=== PATIENT | female | born 1960 | race Caucasian/White ===

== ENCOUNTER 2016-05-17 19:27 | Emergency (ER) | payer BC ==
[2016-05-17] MEDS ORDERED: ONDANSETRON 4 MG/2 ML VIAL IVP STA (20:27)
[2016-05-17] MEDS ORDERED: MECLIZINE 12.5 MG TAB PO STA (20:27)
[2016-05-17] MEDS ORDERED: SODIUM CHLORIDE 0.9% 1,000 ML IV ONE (20:27)
--- NOTE | 2016-05-17 20:30 | ED ---
General Adult HPI - General Chief complaint: Shortness of Breath Stated complaint: SJ Time Seen by Provider: 05/17/16 19:46 Source: patient Mode of arrival: wheelchair Limitations: no limitations - History of Present Illness Initial comments: 56-year-old female presenting for evaluation of a hot sensation/flash to her face and dizziness that occurred at about 6:00 today and has intermittently been present. She states that when this occurs she feels like she could pass out and her vision becomes whitened fuzzy. There are no alleviating factors but she states that they do seem to present more when she is moving her head or sitting up fast. She's had similar symptoms to this in the past, back in January and February during which she was initially discharged as vertigo and the second time was admitted to rule out any cardiac etiology. During her stay she was cleared by neurology and cardiology without any significant abnormalities, ruling out ACS and PE. Today she denies any chest pain or shortness of breath but states that she does have significant anxiety when her symptoms, which caused her to breathe a little faster in the moment. There is no fevers, chills, nausea, vomiting, dysuria, abdominal pain, back pain. - Related Data Home Medications Medication Instructions Recorded Confirmed Celecoxib 200 mg PO DAILY 02/19/16 02/19/16 Esomeprazole Magnesium 40 mg PO DAILY 02/19/16 02/19/16 Levothyroxine Sodium 175 mcg PO DAILY 02/19/16 02/19/16 Telmisartan/Hydrochlorothiazid 1 tab PO DAILY 02/19/16 02/19/16 [Micardis Hct 80-12.5 mg Tablet] Venlafaxine HCl [Effexor XR] 150 mg PO DAILY 02/19/16 02/19/16 Venlafaxine HCl [Venlafaxine HCl 150 mg PO DAILY 02/19/16 02/19/16 ER] metFORMIN HCL [Metformin HCl ER] 500 mg PO DAILY 02/19/16 02/19/16 Previous Rx's Medication Instructions Recorded Albuterol Inhaler [Ventolin Hfa 1 - 2 puff INHALATION Q6HR PRN #1 02/20/16 Inhaler] inhaler Meclizine [Antivert] 25 mg PO DAILY #30 tab 05/17/16 Allergies Allergy/AdvReac Type Severity Reaction Status Date / Time codeine Allergy Unknown Verified 05/17/16 19:42 Review of Systems ROS Statement: Those systems with pertinent positive or pertinent negative responses have been documented in the HPI. General: Patient denies fever, chills, or vomiting but admits to nausea HEENT: No visual changes. No eye pain. No nasal symptoms. No dysphagia.No odynophagia. No ENT pain. Cardiac: No chest pain. No palpitations. Pulmonary; No dyspnea. Denies cough. GI: No abdominal pain. No diarrhea. No constipation. No bowel habit changes. No melena. No hematochezia. : No dysuria.No hematuria. No hesitancy. No urgency. No renal lithiasis history. Musculoskeletal: No musculoskeletal pain. No myalgias. Orthopedic: Denies fracture history. No arthralgias. Integumentary: Denies rash. Denies pruritis. Neurologic: Dizziness, hot flashes. Denies any lateralizing weakness. Denies numbness. Denies tingling. No seizure activity. Heme/Onc: Denies anemia. Denies cancer. Denies adenopathy. ROS Other: All systems not noted in ROS Statement are negative. Past Medical History Past Medical History: Diabetes Mellitus, GERD/Reflux, Hypertension, Osteoarthritis (OA), Thyroid Disorder Additional Past Medical History / Comment(s): Cervical pain, NIDDM type II, hypothyroid, R heel spur, recent UTI with completed a course of Bactrim, recent vertigo, obesity History of Any Multi-Drug Resistant Organisms: None Reported Past Surgical History: Section Additional Past Surgical History / Comment(s): lymph node removal -benign from R side base of neck, x4. Past Anesthesia/Blood Transfusion Reactions: No Reported Reaction Additional Past Anesthesia/Blood Transfusion Reaction / Comment(s): Pt received blood in past without reaction. Past Psychological History: Anxiety Additional Psychological History / Comment(s): Pt resides with her spouse. [facility] is independent. Smoking Status: Former smoker Past Alcohol Use History: None Reported Additional Past Alcohol Use History / Comment(s): Pt states she smoked from 1974 -1998. Past Drug Use History: None Reported - Past Family History Father Family Medical History: Myocardial Infarction ([place]) Additional Family Medical History / Comment(s): Father at the age of 36 yrs from a [place]. Pt believes the [place] was related to his illness with yellow jaundice. Mother Family Medical History: Hypertension Additional Family Medical History / Comment(s): Mother is 83 yrs old. General Exam - General Exam Comments Initial Comments: General: The patient is awake and alert, in no distress, and does not appear acutely ill. Eye: Pupils are equal, round and reactive to light, extra-ocular movements are intact; there is normal conjunctiva bilaterally. No signs of icterus. Ears, nose, mouth and throat: There are moist mucous membranes and no oral lesions. Neck: The neck is supple, there is no tenderness or JVD. Cardiovascular: There is a regular rate and rhythm. No murmur, rub or gallop is appreciated. Respiratory: Lungs are clear to auscultation, respirations are non-labored, breath sounds are equal. No wheezes, stridor, rales, or rhonchi. Gastrointestinal: Soft, non-distended, non-tender abdomen without masses or organomegaly noted. There is no rebound or guarding present. No CVA tenderness. Bowel sounds are unremarkable. Back: There is no tenderness to palpation in the midline. There is no obvious deformity. No rashes noted. Musculoskeletal: Normal ROM, no tenderness, There is no pedal edema. There is no calf tenderness or swelling. Sensation intact. Pulses equal bilaterally 2+. Neurological: CN II-XII intact, There are no obvious motor or sensory deficits. Coordination appears grossly intact. Speech is normal. Skin: Skin is warm and dry and no rashes or lesions are noted. Psychiatric: Cooperative, appropriate mood & affect, normal judgment. Limitations: no limitations Course Vital Signs 05/17/16 05/17/16 19:37 21:36 Temperature 97.5 F L Pulse Rate 71 67 Respiratory 20 18 Rate Blood Pressure 170/89 147/85 O2 Sat by Pulse 97 99 Oximetry EKG Findings - EKG Comments: EKG Findings:: EKG shows normal sinus rhythm with right bundle branch block and left anterior fascicular block, ventricular rate 63, LIAM 136, QRS 152, QT/QTC 450/460. This EKG is unchanged from previous. Medical Decision Making - Medical Decision Making 56-year-old female with past medical history of vertigo presented for evaluation of dizziness and hot flashes starting at about 6:00 this evening. She states he's ever similar to previous episodes she had back in January and February during which time she was diagnosed with vertigo and then admitted on the second presentation but workup was negative from the neural and cardiac consults, ruling out stroke, [place], PE. Physical examination revealed a normal neurologic exam, cranial nerves II through XII intact, and no focal neurologic deficits. Lungs clear to auscultation bilaterally without cardiac murmur. Wells for PE is 0 and she denies any chest pain or shortness of breath. We'll provide patient with IV fluid, Antivert, Zofran, and obtain EKG. Reviewing the patient's history she had an echo back in February which revealed no acute abnormalities. CT head showed no acute process. Discussing these results with the patient she stated she had a stress test a few weeks ago in her occupational hygienist's office which also showed no significant abnormalities. Labs revealed no significant abnormalities. The patient was informed of these results and reevaluated. She had resolution of her symptoms for the last hour and was feeling back at baseline. She was informed she would be discharged with a prescription for Antivert and instructions to follow-up with her primary care physician. She was further advised to return to this facility if her symptoms should worsen or persist. She acknowledged an understanding of this information and agreed with this plan of care. - Lab Data Result diagrams: 05/17/16 20:50 05/17/16 20:50 Lab Results 05/17/16 05/17/16 05/17/16 Range/Units 20:50 20:50 20:50 WBC 7.8 (3.8-10.6) k/uL RBC 4.75 (3.80-5.40) m/uL Hgb 13.9 (11.4-16.0) gm/dL Hct 42.8 (34.0-46.0) % MCV 90.2 (80.0-100.0) fL MCH 29.3 (25.0-35.0) pg MCHC 32.5 (31.0-37.0) g/dL RDW 13.7 (11.5-15.5) % Plt Count 293 (150-450) k/uL Neutrophils % 70 % Lymphocytes % 21 % Monocytes % 5 % Eosinophils % 1 % Basophils % 1 % Neutrophils # 5.4 (1.3-7.7) k/uL Lymphocytes # 1.6 (1.0-4.8) k/uL Monocytes # 0.4 (0-1.0) k/uL Eosinophils # 0.1 (0-0.7) k/uL Basophils # 0.1 (0-0.2) k/uL Sodium 144 (137-145) mmol/L Potassium 4.6 (3.5-5.1) mmol/L Chloride 103 (98-107) mmol/L Carbon Dioxide 28 (22-30) mmol/L Anion Gap 13 mmol/L BUN 10 (7-17) mg/dL Creatinine 0.60 (0.52-1.04) mg/dL Est GFR (MDRD) Af Amer >60 (>60 ml/min/1.73 sqM) Est GFR (MDRD) Non-Af >60 (>60 ml/min/1.73 sqM) Glucose 92 (74-99) mg/dL Calcium 9.8 (8.4-10.2) mg/dL Total Bilirubin 0.4 (0.2-1.3) mg/dL AST 25 (14-36) U/L ALT 48 (9-52) U/L Alkaline Phosphatase 68 (38-126) U/L Troponin I <0.012 (0.000-0.034) ng/mL Total Protein 7.0 (6.3-8.2) g/dL Albumin 4.5 (3.5-5.0) g/dL Lipase 70 (23-300) U/L Disposition Clinical Impression: Vertigo, Nausea Disposition: HOME SELF-CARE Condition: Stable Instructions: Benign Paroxysmal Positional Vertigo (ED), Vertigo (ED) Prescriptions: Meclizine [Antivert] 25 mg PO DAILY #30 tab Time of Disposition: 22:37
[2016-05-17 21:37] VITALS: RESP 18
[2016-05-17 21:47] LABS: Basophils # (A) 0.1 k/uL (0-0.2); Basophils % (A) 1 %; CH 29.8; CHCM 33.2; Eosinophils # (A) 0.1 k/uL (0-0.7); Eosinophils % (A) 1 %; HCT 42.8 % (34.0-46.0); HDW 2.88; HGB 13.9 gm/dL (11.4-16.0); Luc # (Auto) 0.19; Luc % (Auto) 3; Lymphocytes # (A) 1.6 k/uL (1.0-4.8); Lymphocytes % (A) 21 %; MCH 29.3 pg (25.0-35.0); MCHC 32.5 g/dL (31.0-37.0); MCV 90.2 fL (80.0-100.0); Mean Platelet Volume 8.1; Monocytes # (A) 0.4 k/uL (0-1.0); Monocytes % (A) 5 %; Neutrophils # (A) 5.4 k/uL (1.3-7.7); Neutrophils % (A) 70 %; RBC 4.75 m/uL (3.80-5.40); RDW 13.7 % (11.5-15.5); WBC 7.8 k/uL (3.8-10.6); WBC (Perox) 8.03
[2016-05-17 22:01] LABS: ALT 48 U/L (9-52); AST 25 U/L (14-36); Alkaline Phosphatase 68 U/L (38-126); Anion Gap 13 mmol/L; Blood Urea Nitrogen 10 mg/dL (7-17); Calcium 9.8 mg/dL (8.4-10.2); Carbon Dioxide 28 mmol/L (22-30); Chloride 103 mmol/L (98-107); Glucose 92 mg/dL (74-99); Non-African American GFR(MDRD) >60 (>60 ml/min/1.73 sqM); Potassium 4.6 mmol/L (3.5-5.1); Sodium 144 mmol/L (137-145); Total Bilirubin 0.4 mg/dL (0.2-1.3)
[2016-05-17 23:17] VITALS: BP 123/75; PULSE 61; TEMP 97.2
== END 2016-05-17 23:19 | disposition home or self-care (01) ==
LOC: EC 19:27
DX: R42 Dizziness and giddiness (principal); E11.9 Type 2 diabetes mellitus without complications; E03.9 Hypothyroidism, unspecified; K21.9 Gastro-esophageal reflux disease without esophagitis; F41.9 Anxiety disorder, unspecified; M19.90 Unspecified osteoarthritis, unspecified site; Z88.5 Allergy status to narcotic agent; Z79.84 Long term (current) use of oral hypoglycemic drugs; Z87.891 Personal history of nicotine dependence; Z79.899 Other long term (current) drug therapy
CPT/HCPCS: 36415; 93005; 80053; 83690; 84484; 85025; 99285; 96374; 96361; J2405

== ENCOUNTER → 2016-09-02 | Outpatient (CLI) | payer BC ==
--- NOTE | 2016-09-02 10:02 | CT ---
EXAMINATION TYPE: CT sinus wo con DATE OF EXAM: 09/02/2016 7:51 AM COMPARISON: NONE HISTORY: 56-year-old female sinusitis, dizziness CT DLP: 514.1 mGycm Automated exposure control for dose reduction was used. TECHNIQUE: Noncontrast axial views of the paranasal sinuses were obtained. Coronal reconstructions pe rformed. FINDINGS: There is trace mucosal thickening within the maxillary sinuses. The remainder of the paranasal sinuse s are well pneumatized. No air-fluid level. Reactive alek- osteogenesis is not seen. There is no destruction of the osseous woodson of the paranasal sinuses. The osteomeatal complexes are patent. The patient's posterior maxillary molars are undescended with the roots projecting into the floors of the maxillary sinuses, left greater than right. Leftward nasal septal deviation. The imaged brain, sella, skull base and orbits are normal in appearance. Visualized mastoid air cells and middle ear cavities are well pneumatized. Reformatted images confirm above findings. IMPRESSION: 1. Trace mucosal thickening in the maxillary sinuses. 2. Leftward nasal septal deviation. 3. Incidentally, the posterior maxillary molars are undescended with the roots projecting into the fl oors of the maxillary sinuses, left greater than right.
== END | disposition home or self-care (01) ==
LOC: RADCTMAIN 07:10
PROVIDERS: ATTEND Otolaryngology
DX: J34.89 Other specified disorders of nose and nasal sinuses (principal); J34.2 Deviated nasal septum; J32.9 Chronic sinusitis, unspecified; E06.9 Thyroiditis, unspecified
CPT/HCPCS: 70486; 84439; 84443; 86376

== ENCOUNTER → 2016-09-02 | Outpatient (CLI) | payer BC ==
--- NOTE | 2016-09-03 10:18 | MM ---
Reason for exam: screening (asymptomatic). Last mammogram was performed 5 years and 2 months ago. History: Patient is postmenopausal. Benign left mammotome panel of the left breast, July 07, 2011. Benign right mammotome panel of the right breast, July 07, 2011. Physical Findings: A clinical breast exam by your physician is recommended on an annual basis and results should be correlated with mammographic findings. MG Screening Mammo w CAD Bilateral CC and MLO view(s) were taken. Prior study comparison: June 19, 2011, [facility] DIGITAL BILATERAL MAMMOGRAM w/CAD. June 05, 2011, bilateral digital screening mammo w/CAD. The breast tissue is heterogeneously dense. This may lower the sensitivity of mammography. Previous mammotome biopsy within the left breast. There is no discrete abnormality. No significant changes when compared with prior studies. ASSESSMENT: Benign, BI-RAD 2 RECOMMENDATION: Routine screening mammogram of both breasts in 1 year.
== END | disposition home or self-care (01) ==
LOC: RADMAMWWP 06:54
PROVIDERS: ATTEND Family Medicine
DX: Z12.31 Encounter for screening mammogram for malignant neoplasm of breast (principal)

== ENCOUNTER → 2017-02-05 | Outpatient (CLI) | payer BC ==
[2017-02-05 10:23] LABS: Blood Urea Nitrogen 13 mg/dL (7-17); Non-African American GFR(MDRD) >60 (>60 ml/min/1.73 sqM)
--- NOTE | 2017-02-05 11:22 | CT ---
EXAMINATION TYPE: CT angio thoracic/abd aorta DATE OF EXAM: 02/05/2017 COMPARISON: 02/20/2016 HISTORY: Patient has no complaints at time of study. Follow up study for known aneurysm (patient say s abnormal heart valve). CT DLP: 1644.2 mGycm. Automated Exposure Control for Dose Reduction was Utilized. CONTRAST: CT scan of the thorax, abdomen and pelvis is performed with IV Contrast, patient injected with 100 mL of Omnipaque 350. FINDINGS: LUNGS: The lungs are grossly clear, there is no concerning parenchymal mass or nodule identified. T here is no pleural effusion or pneumothorax seen. The tracheobronchial tree is patent. MEDIASTINUM: Ascending thoracic aorta is markedly enlarged measuring 4.1 cm on series 13 image 24 (co sara reformats). The main pulmonary artery is also enlarged measuring 3.4 cm, which may clinically c orrelate with pulmonary arterial hypertension. On the arterial phase there is no evidence of dissecti on, penetrating atheromatous ulcer, or significant stenosis. There are no greater than 1 cm hilar or mediastinal lymph nodes. No pericardial effusion is seen. OTHER: No additional significant abnormality is seen. LIVER/GB: Hepatic parenchyma is diffusely hypoattenuated compatible with hepatic steatosis, which yousif its evaluation for hepatic masses. There appears to be mild fatty sparing around the gallbladder kiley a. PANCREAS: Mild atrophy is seen of the pancreatic head and proximal body without ductal dilatation. SPLEEN: No significant abnormality is seen. ADRENALS: Left adrenal gland is minimally thickened but maintains an adreniform shape without adrenal gland measurable nodule. This likely relates to adrenal gland hyperplasia. KIDNEYS: No significant abnormality is seen. BOWEL: No dilated bowel or bowel wall thickening. Diastases recti is seen with a small fat filled um bilical hernia. LYMPH NODES: No greater than 1cm abdominal or pelvic lymph nodes are appreciated. OSSEOUS STRUCTURES: Mild degenerative changes are seen of the thoracolumbar and lumbosacral spine. VASCULATURE: Unenhanced images there is no evidence of intramural hematoma, renal calculus, or radiop aque gallstone. Mild ascending aortic enlargement as described within the mediastinal section. On the arterial phase there is no evidence of dissection, penetrating atheromatous ulcer, or significant st enosis. Minimal calcific atheromatous changes are seen of the abdominal aorta and its branches with n o significant stenosis at the celiac, SMA, or renal ostia. Approximately 50% stenosis at the inferior mesenteric artery origin. There is no aneurysmal dilatation of the descending thoracic aorta or abdo alon aorta. Abdominal aorta in the suprarenal portion measures 1.9 cm in the infrarenal portion isabel ures 1.6 cm. There is no aneurysmal dilatation of the common iliac arteries. IMPRESSION: 1. Mild ascending thoracic aortic aneurysm measuring 4.1 cm. 2. Minimal calcific and noncalcific atheromatous change of the abdominal aorta and its branches with no evidence of aneurysm. Ostial stenosis of approximately 50% is seen at the origin of the RUTH. No a neurysm of the visualized common iliac arteries. 3. Hepatic steatosis. 4. Probable left adrenal gland hyperplasia.
== END ==
LOC: RADCTMAIN 09:52
PROVIDERS: ATTEND Internal Medicine Interventional Cardiology
DX: I71.1 Thoracic aortic aneurysm, ruptured (principal); I70.0 Atherosclerosis of aorta; K76.0 Fatty (change of) liver, not elsewhere classified
CPT/HCPCS: 82565; 84520; 75635; 71275; 36415; Q9967

== ENCOUNTER → 2017-02-06 | Outpatient (CLI) | payer BC ==
--- NOTE | 2017-02-06 13:26 | US ---
EXAMINATION TYPE: US thyroid st tissue head/neck DATE OF EXAM: 02/06/2017 COMPARISON: NONE CLINICAL HISTORY: E06.9 thyroiditis. Dmitri's GLAND SIZE: Right Lobe: 3.5 x 0.9 x 1.6 cm Overall Parenchyma: heterogenous Left Lobe: 3.5 x 0.7 x 1.9 cm Overall Parenchyma: heterogeneous Isthmus Thickness: 0.5 cm NODULES RIGHT: # of nodules measured on right: 0 LEFT: # of nodules measured on left: 0 ISTHMUS: # of nodules measured in the isthmus: 0 Bilateral neck scanned, no evidence of lymphadenopathy. IMPRESSION: Nonspecific heterogeneity of the thyroid lobes without distinct nodule.
== END | disposition home or self-care (01) ==
LOC: RADUSWWP 12:45
PROVIDERS: ATTEND Family Medicine
DX: E03.9 Hypothyroidism, unspecified (principal); E06.9 Thyroiditis, unspecified; Z88.5 Allergy status to narcotic agent
CPT/HCPCS: 76536

== ENCOUNTER 2017-10-15 17:09 | Emergency (ER) | payer BC, OTHER ==
[2017-10-15] MEDS ORDERED: DIPH,PERTUS(ACELL)TETVAC-LF 0.5 ML VIAL IM ONE (17:50)
--- NOTE | 2017-10-15 17:54 | ED ---
General Adult HPI - General Chief complaint: Extremity Injury, Lower Stated complaint: [facility]-Nail in foot Time Seen by Provider: 10/15/17 17:36 Source: patient, RN notes reviewed Mode of arrival: ambulatory Limitations: no limitations - History of Present Illness Initial comments: 57-year-old female presents to the emergency department for a chief complaint of left foot injury. Earlier today patient was in a client's house doing an investigation when she stepped on a nail. Patient states the nail went through the bottom of her shoe and into her foot. Patient states the client pulled out the nail. Patient is not up-to-date on tetanus. Patient states she can walk on it at this time. Patient has no other complaints at this time including shortness of breath, chest pain, abdominal pain, nausea or vomiting, headache, or visual changes. - Related Data Home Medications Medication Instructions Recorded Confirmed Levothyroxine Sodium 175 mcg PO DAILY 02/19/16 02/19/16 metFORMIN HCL [Metformin HCl ER] 500 mg PO DAILY 02/19/16 02/19/16 Metoprolol Tartrate [Lopressor] 25 mg PO DAILY 10/15/17 10/15/17 Omeprazole [PriLOSEC] 20 mg PO AC-BID 10/15/17 10/15/17 Venlafaxine HCl [Effexor XR] 225 mg PO DAILY 10/15/17 10/15/17 Previous Rx's Medication Instructions Recorded Ciprofloxacin HCl [Cipro] 500 mg PO Q12HR 10 Days #20 tablet 10/15/17 Allergies Allergy/AdvReac Type Severity Reaction Status Date / Time codeine Allergy Unknown Verified 10/15/17 17:56 Review of Systems ROS Statement: Those systems with pertinent positive or pertinent negative responses have been documented in the HPI. ROS Other: All systems not noted in ROS Statement are negative. Past Medical History Past Medical History: Diabetes Mellitus, GERD/Reflux, Hypertension, Osteoarthritis (OA), Thyroid Disorder Additional Past Medical History / Comment(s): Cervical pain, NIDDM type II, hypothyroid, R heel spur, recent UTI with completed a course of Bactrim, recent vertigo, obesity History of Any Multi-Drug Resistant Organisms: None Reported Past Surgical History: Section Additional Past Surgical History / Comment(s): lymph node removal -benign from R side base of neck, x4. Past Anesthesia/Blood Transfusion Reactions: No Reported Reaction Additional Past Anesthesia/Blood Transfusion Reaction / Comment(s): Pt received blood in past without reaction. Past Psychological History: Anxiety Smoking Status: Former smoker Past Alcohol Use History: None Reported Past Drug Use History: None Reported - Past Family History Father Family Medical History: Myocardial Infarction ([place]) Additional Family Medical History / Comment(s): Father at the age of 36 yrs from a [place]. Pt believes the [place] was related to his illness with yellow jaundice. Mother Family Medical History: Hypertension Additional Family Medical History / Comment(s): Mother is 83 yrs old. General Exam Limitations: no limitations General appearance: alert, in no apparent distress Head exam: Present: atraumatic, normocephalic, normal inspection Eye exam: Present: normal appearance ENT exam: Present: normal exam, normal oropharynx, mucous membranes moist, TM's normal bilaterally Neck exam: Present: normal inspection, full ROM. Absent: tenderness, meningismus, lymphadenopathy Respiratory exam: Present: normal lung sounds bilaterally. Absent: respiratory distress, wheezes, rales, rhonchi, stridor Cardiovascular Exam: Present: regular rate, normal rhythm, normal heart sounds. Absent: systolic murmur, diastolic murmur, rubs, gallop, clicks Extremities exam: Present: full ROM (Full range of motion of the left foot ankle and digits.), tenderness (Mild tenderness to the left heel.), normal capillary refill (Refill less than 2 seconds and radial pulse 2+ in the left lower extremity.), other (There is a small puncture wound in the left heel. No laceration that can be sutured. No cellulitic changes or signs of infection or drainage from the area.). Absent: joint swelling Course Vital Signs 10/15/17 17:25 Temperature 97.6 F Pulse Rate 83 Respiratory 20 Rate Blood Pressure 171/99 O2 Sat by Pulse 99 Oximetry Medical Decision Making - Medical Decision Making 57-year-old female presents to the emergency department for a chief complaint of left foot pain times one day. Earlier today patient stepped on a nail that went through the bottom of her shoe. On exam there is a small puncture wound present in the left heel. No signs of infection at this time. Patient has full range of motion of the left lower extremity. Neurovascular intact. Foot was soaked in soap and water. X-ray demonstrated no acute fractures or dislocations. No foreign bodies. Patient will be given Cipro to cover for any Pseudomonas agent present in the shoe. She was educated on the black box warnings of this medication and agrees to take it. Patient will do warm soapy soaks of the left foot. She will follow up with primary care in 1-2 days. She will monitor for any worsening symptoms or signs of infection which she was educated about and return if these occur. Disposition Clinical Impression: Puncture wound of foot, left Disposition: HOME SELF-CARE Condition: Good Instructions: Puncture Wound (ED) Additional Instructions: Soak foot in warm soapy water a couple times per day. Take Cipro as directed. Monitor for any signs of infection or worsening symptoms. Return if these occur or you have any other concerns. Otherwise follow-up with primary care in 1-2 days and take Motrin and Tylenol for pain. Prescriptions: Ciprofloxacin HCl [Cipro] 500 mg PO Q12HR 10 Days #20 tablet Is patient prescribed a controlled substance at d/c from ED?: No Referrals: Tello Leiva MD [Primary Care Provider] - 1-2 days Time of Disposition: 18:34
--- NOTE | 2017-10-15 18:43 | XR ---
EXAMINATION TYPE: XR foot complete LT DATE OF EXAM: 10/15/2017 COMPARISON: NONE HISTORY: Stepped on a nail TECHNIQUE: 3 views FINDINGS: There are plantar and Achilles calcaneal spurs. Metatarsals are intact. I see no fracture n or dislocation. There are no erosions. IMPRESSION: Calcaneal spurring. No evidence of radiopaque foreign body.
[2017-10-15 19:01] VITALS: BP 144/79; PULSE 73; RESP 18; TEMP 98.2
== END 2017-10-15 19:04 | disposition home or self-care (01) ==
LOC: EC 17:09
DX: S91.332A Puncture wound without foreign body, left foot, initial encounter (principal); I10 Essential (primary) hypertension; E11.9 Type 2 diabetes mellitus without complications; E03.9 Hypothyroidism, unspecified; K21.9 Gastro-esophageal reflux disease without esophagitis; F41.9 Anxiety disorder, unspecified; E66.9 Obesity, unspecified; Z79.84 Long term (current) use of oral hypoglycemic drugs; Z87.891 Personal history of nicotine dependence; Z79.899 Other long term (current) drug therapy; Z88.5 Allergy status to narcotic agent; Z68.41 Body mass index [BMI] 40.0-44.9, adult; Z23 Encounter for immunization; W45.0XXA Nail entering through skin, initial encounter; Y92.099 Unspecified place in other non-institutional residence as the place of occurrence of the external cause; Y93.89 Activity, other specified; Y99.0 Civilian activity done for income or pay
CPT/HCPCS: 90471; 90715; 99283

== ENCOUNTER → 2018-01-01 | Outpatient (CLI) | payer BC ==
--- NOTE | 2018-01-05 11:15 | MM ---
Reason for exam: screening (asymptomatic). Last mammogram was performed 1 year and 4 months ago. History: Patient is postmenopausal. Benign left mammotome panel of the left breast, July 07, 2011. Benign right mammotome panel of the right breast, July 07, 2011. Physical Findings: A clinical breast exam by your physician is recommended on an annual basis and results should be correlated with mammographic findings. MG 3D Screening Mammo W/Cad Bilateral CC and MLO view(s) were taken. Prior study comparison: September 02, 2016, bilateral MG screening mammo w CAD. June 05, 2011, bilateral digital screening mammo w/CAD. There are scattered fibroglandular densities. Previous mammotome biopsy in the right and left breast. There is chronic nodularity in the left breast. 6mm circumscribed, isodense nodularity 5 o'clock posterior right breast has benign features but is new. 6 month follow up recommended. ASSESSMENT: Probably benign, BI-RAD 3 RECOMMENDATION: Follow-up diagnostic mammogram of the right breast in 6 months.
== END | disposition home or self-care (01) ==
LOC: RADMAMWWP 07:19
PROVIDERS: ATTEND Family Medicine
DX: Z12.31 Encounter for screening mammogram for malignant neoplasm of breast (principal)
CPT/HCPCS: 77063; 77067

== ENCOUNTER → 2018-07-05 | Outpatient (CLI) | payer BC ==
--- NOTE | 2018-07-05 11:18 | MM ---
Reason for exam: follow-up at short interval from prior study. Last mammogram was performed 6 months ago. History: Patient is postmenopausal. Benign left mammotome panel of the left breast, July 07, 2011. Benign right mammotome panel of the right breast, July 07, 2011. Physical Findings: Nurse did not find any significant physical abnormalities on exam. MG 3D Diag Mammo W/Cad RT CC and MLO view(s) were taken of the right breast. Prior study comparison: January 01, 2018, bilateral MG 3d screening mammo w/cad. September 02, 2016, bilateral MG screening mammo w CAD. The breast tissue is heterogeneously dense. This may lower the sensitivity of mammography. There is a 6mm mass at the 6 o'clock position 6.4cm from nipple. Ultrasound will be performed. No additional suspicious abnormality. These results were verbally communicated with the patient and result sheet given to the patient on 07/05/18. ASSESSMENT: Incomplete: need additional imaging evaluation, BI-RAD 0 RECOMMENDATION: Ultrasound of the right breast. (lower outer quadrant)
--- NOTE | 2018-07-05 11:20 | USB ---
Reason for exam: additional evaluation requested from abnormal screening. History: Patient is postmenopausal. Benign left mammotome panel of the left breast, July 07, 2011. Benign right mammotome panel of the right breast, July 07, 2011. US Breast Limited RT Right limited breast ultrasound including focal area of concern, retroareolar and axilla demonstrates duct ectasia at the posterior nipple and a 0.7 x 0.3 x 0.4cm cystic cluster at 5 o'clock, corresponds to the mammographic finding. These results were verbally communicated with the patient and result sheet given to the patient on 07/05/18. ASSESSMENT: Benign, BI-RAD 2 RECOMMENDATION: Return to routine screening mammogram schedule for both breasts. Back on schedule.
== END | disposition home or self-care (01) ==
LOC: RADMAMWWP 06:54
PROVIDERS: ATTEND Family Medicine
DX: R92.8 Other abnormal and inconclusive findings on diagnostic imaging of breast (principal)
CPT/HCPCS: 77061; 77065

== ENCOUNTER → 2018-08-16 | Outpatient (CLI) | payer BC ==
[2018-08-16 09:07] LABS: HGB 14.1 gm/dL (11.4-16.0); MCH 29.6 pg (25.0-35.0); MCHC 32.9 g/dL (31.0-37.0); MCV 89.9 fL (80.0-100.0); Mean Platelet Volume 8.7; Platelet Count 263 k/uL (150-450); RBC 4.78 m/uL (3.80-5.40); RDW 14.2 % (11.5-15.5); WBC 6.7 k/uL (3.8-10.6)
[2018-08-16 09:13] LABS: Anion Gap 8 mmol/L; Blood Urea Nitrogen 12 mg/dL (7-17); Carbon Dioxide 33 mmol/L (22-30); Chloride 98 mmol/L (98-107); Potassium 5.1 mmol/L (3.5-5.1); Sodium 139 mmol/L (137-145)
== END | disposition home or self-care (01) ==
LOC: LABPAT 08:20
PROVIDERS: ATTEND Internal Medicine Interventional Cardiology
DX: Z01.812 Encounter for preprocedural laboratory examination (principal); I10 Essential (primary) hypertension; R06.02 Shortness of breath
CPT/HCPCS: 36415; 80051; 82565; 84520; 85027

== ENCOUNTER → 2018-08-19 | Day surgery (SDC) | payer BC ==
[2018-08-13 14:45] VITALS: BMI 42.7
[~2018-08-19] MED LIST: ALPRAZolam 0.25 MG TAB PO PRN; ALPRAZolam 0.5 MG TAB PO PRN; ASPIRIN 325 MG TAB PO ONE; ATORVASTATIN 80 MG TAB PO ONE; HEPARIN SODIUM 1,000 UN/ML (10ML VL) IV ONE; HEPARIN SODIUM 1,000 UN/ML (10ML VL) ONE; INSULIN ASPART (NovoLOG) 100 UNIT/ML VIAL SQ ONE; IOPAMIDOL-370 100ML BTL INJ ONE; LIDOCAINE 1% INJ 10MG/ML (20 ML MDV) ONE; LIDOCAINE 1% INJ 10MG/ML (20 ML MDV) SQ ONE; MIDAZOLAM 2 MG/2 ML VIAL IVP ONE; NITROGLYCERIN SL TABS 0.4 MG TAB SUBLINGUAL PRN; RX INFO: IV CONTRAST WAS GIVEN 1 EACH MISC MISCELLANE PRN; SODIUM CHLORIDE 0.9% 1,000 ML IV SCH; SODIUM CHLORIDE 0.9% 1,000 ML in EMPTY BAG 1 BAG IV ONE; VERAPAMIL 2.5 MG/ML 2 ML AMP ONE
[2018-08-19 06:58] LABS: Glucose,Whole Blood 218 mg/dL (75-99)
[2018-08-19 07:09] VITALS: TEMP 98.9
[2018-08-19] MEDS: VERAPAMIL SYRINGE (5 MG/10 ML) INTRAARTER ONE ×2 (07:50→08:00)
--- NOTE | 2018-08-19 08:31 | CC ---
CARDIAC CATHETERIZATION REPORT DATE OF SERVICE: August 19, 2018 PERFORMING PHYSICIAN: Chris Chapin MD, gamemaster. PROCEDURE PERFORMED: 1. Selective right and left coronary angiogram. 2. Left heart catheterization. INDICATION: This is a 58-year-old female patient with diabetes and hypertension and dyslipidemia who was experiencing exertional dyspnea concerning for angina equivalent. A heart catheterization was advised. APPROACH: Right radial artery. COMPLICATION: None. LEVEL OF SEDATION: Moderate with sedation length of 15 minutes. PROCEDURE DESCRIPTION: After obtaining an informed consent, the patient was brought to cardiac seed analysis laboratory assistant. The right radial artery was cannulated using micropuncture technique, the micropuncture wire passed easily then I placed a 6-Uzbek sheath 11 cm in the right radial artery. I gave the patient 2 mg of verapamil IA and 10,000 units of heparin IV. Subsequently, I did selective right and left coronary angiogram using JR4 and JL3.5 catheters. Left heart catheterization was performed using the JL4 catheter, which flipped into the LV then I did pullback across aortic valve after I flushed the catheter. The procedure was completed without any complication. SELECTIVE CORONARY ANGIOGRAM: 1. The right coronary artery is a large caliber vessel and it is dominant vessel. The proximal RCA has mild disease only. The mid RCA has a focal lesion appeared to be in the range of 40% to 50%. The RCA distally appeared to be angiographically normal and bifurcates into PDA and PLV branches both appeared to be angiographically normal. 2. The left main is a long and large left main and is angiographically normal. It bifurcates into left circumflex and left anterior descending artery. 3. The circumflex is a large caliber vessel. It is a nondominant vessel. The left circumflex is angiographically normal. It gives rise into the first and second obtuse marginal branches both appeared to be angiographically normal. 4. The LAD: The proximal LAD appeared to be normal. It gives rise into a large first diagonal branch which seems to be angiographically normal. The mid LAD appeared to be normal and gives rise into second diagonal branch which is small caliber vessel, seems to be angiographically normal and the LAD distally appeared to be normal and becomes small caliber vessel by the apex. HEMODYNAMICS: The left ventricular end-diastolic pressure was about 22 mmHg without significant gradient across the aortic valve. CONCLUSION: 1. Intermediate disease involving the mid right coronary artery. The disease appeared to be in the range of 40% to 50%. 2. Elevated left ventricular end-diastolic pressure. POSTPROCEDURE MANAGEMENT: 1. At this point, maximize medical treatment. 2. Aggressive cholesterol control. 3. Probably start the patient on oral diuretics as an outpatient. 4. Follow up with the patient. KEVIN / LELE: [id number] /
--- NOTE | 2018-08-19 08:38 | LTR ---
August 19, 2018 Re: Evangelina Castilloid Dear Dr. Leiva: Ms. Evangelina Correa underwent today a heart catheterization and that showed intermediate nonobstructive coronary artery disease. I did recommend maximized medical treatment as well as aggressive cholesterol control. I want to thank you for allowing me to participate in her care and please do not hesitate to call with questions or concerns. Sincerely, MD KEVIN Flores / ESTHERN: [id number] /
[2018-08-19 09:42] VITALS: PULSE 68
[2018-08-19 10:39] VITALS: BP 169/87; RESP 16
== END | disposition home or self-care (01) ==
LOC: CATHCVL 06:26
PROVIDERS: ATTEND Internal Medicine Interventional Cardiology
DX: I25.110 Atherosclerotic heart disease of native coronary artery with unstable angina pectoris (principal); E78.00 Pure hypercholesterolemia, unspecified; I10 Essential (primary) hypertension; E78.5 Hyperlipidemia, unspecified; E66.9 Obesity, unspecified; E11.9 Type 2 diabetes mellitus without complications; Z88.5 Allergy status to narcotic agent; Z88.8 Allergy status to other drugs, medicaments and biological substances; Z79.84 Long term (current) use of oral hypoglycemic drugs; Z79.890 Hormone replacement therapy; Z79.1 Long term (current) use of non-steroidal anti-inflammatories (NSAID); Z79.899 Other long term (current) drug therapy; Z82.49 Family history of ischemic heart disease and other diseases of the circulatory system; Z68.42 Body mass index [BMI] 45.0-49.9, adult; Z72.0 Tobacco use
CPT/HCPCS: 93458; C1769 ×2; C1894; J2250; J2001; J1644; Q9967

== ENCOUNTER → 2018-10-29 | Outpatient (CLI) | payer BC ==
--- NOTE | 2018-10-29 19:06 | US ---
EXAMINATION TYPE: US pelvic complete DATE OF EXAM: 10/29/2018 COMPARISON: NONE CLINICAL HISTORY: 58-year-old female R10.2 Pelvic and perineal pain. Sharp bilateral pelvic pain for 4 days and has since gotten better, only hurts when she stands up, , 4 c-sections TECHNIQUE: Transabdominal sonographic images of the pelvis were acquired. Patient refused transvagi delta Date of LMP: 9+yrs ago FINDINGS: EXAM MEASUREMENTS: Uterus: 9.3 x 5.1 x 4.1 cm Endometrial Stripe: 1.3 cm Right Ovary: N/A Left Ovary: N/A *Morbidly obese 1. Uterus: Anteverted wnl 2. Endometrium: thickened 3. Right Ovary: not seen due to atrophy and or bowel gas 4. Left Ovary: not seen due to atrophy and or bowel gas 5. Bilateral Adnexa: wnl 6. Posterior cul-de-sac: wnl IMPRESSION: Endometrial stripe is thickened (1.3 cm), abnormal for a postmenopausal female. Further clinical eval uation and workup is recommended. Differential considerations include endometrial hyperplasia, polyps , and endometrial carcinoma.
== END | disposition home or self-care (01) ==
LOC: RADUSWWP 15:28
PROVIDERS: ATTEND Family Medicine
DX: N95.8 Other specified menopausal and perimenopausal disorders (principal); C79.82 Secondary malignant neoplasm of genital organs; N85.00 Endometrial hyperplasia, unspecified
CPT/HCPCS: 76856

== ENCOUNTER → 2019-01-12 | Outpatient (CLI) | payer BC ==
[2019-01-12 16:36] LABS: Basophils # (A) 0.2 k/uL (0-0.2); Basophils % (A) 2 %; Eosinophils # (A) 0.5 k/uL (0-0.7); Eosinophils % (A) 7 %; HCT 42.6 % (34.0-46.0); HGB 14.2 gm/dL (11.4-16.0); Lymphocytes # (A) 1.4 k/uL (1.0-4.8); Lymphocytes % (A) 22 %; MCH 30.3 pg (25.0-35.0); MCHC 33.3 g/dL (31.0-37.0); MCV 90.8 fL (80.0-100.0); Mean Platelet Volume 8.8; Monocytes # (A) 0.3 k/uL (0-1.0); Monocytes % (A) 4 %; Neutrophils # (A) 4.2 k/uL (1.3-7.7); Neutrophils % (A) 64 %; Platelet Count 264 k/uL (150-450); RBC 4.69 m/uL (3.80-5.40); RDW 13.5 % (11.5-15.5); WBC 6.6 k/uL (3.8-10.6)
== END | disposition home or self-care (01) ==
LOC: LABPAT 14:55
PROVIDERS: ATTEND Obstetrics & Gynecology Obstetrics
DX: Z01.812 Encounter for preprocedural laboratory examination (principal); Z01.818 Encounter for other preprocedural examination; R93.89 Abnormal findings on diagnostic imaging of other specified body structures; I10 Essential (primary) hypertension
CPT/HCPCS: 36415; 85025; 93005

== ENCOUNTER 2019-01-25 07:53 | Day surgery (SDC) | payer BC ==
[2019-01-18 10:17] VITALS: BMI 41.6
--- NOTE | 2019-01-24 16:34 | HP ---
HISTORY AND PHYSICAL HISTORY OF PRESENT ILLNESS: This is a 58-year-old female, 5, para 4, 0, 1, 4 that is postmenopausal and presents for evaluation of a thickened endometrium. She states that she has been menopausal since around age 40-50. She denies any vaginal bleeding since that time. The patient was seen by Dr. Leiva and was complaining of pelvic pain. Ultrasound was ordered and a thickened endometrial lining was noted. An attempted EMB by Heath Coleman was attempted but she was unable to get a sample due to cervical stenosis. The patient was seen in the office here. Endometrial biopsy was performed. Minimal scant tissue was obtained. Secondary to inability to get a pathological diagnosis, we will attempt hysteroscopy, dilation and curettage. PAST MEDICAL HISTORY: Significant for anemia, diabetes, hypertension. PAST SURGICAL HISTORY: The patient has a history of 4 prior C-sections. MEDICATIONS: 1. Atorvastatin 20 mg. 2. Celecoxib 200 mg. 3. Hydrochlorothiazide 25 mg. 4. Levothyroxine 175 mcg. 5. Lisinopril 2.5 mg. 6. Metformin 500 mg. 7. Metoprolol 25 mg. 8. Nexium 40 mg. 9. Venlafaxine 75 mg. ALLERGIES: CODEINE. FAMILY MEDICAL HISTORY: Significant for her father who had a heart attack at age 36. REPRODUCTIVE HISTORY: She has been menopausal since approximately 2009 per patient. She is 4, 4, 0, 1, 4; all prior C-sections. SOCIAL HISTORY: She is a former smoker. She denies alcohol or substance abuse. REVIEW OF SYSTEMS: She denies body aches or night sweats. She denies chest pain or shortness of breath. She denies nausea, vomiting, diarrhea, constipation. For genitourinary, she denies urgency or frequency but does have some incontinence symptoms. Musculoskeletal, she complains of muscle weakness and some joint pain. PHYSICAL EXAM: Vitals were noted to be stable at this time. In general, this is a well-nourished, well-developed, alert female in no acute distress. Her abdomen is noted to be soft and nontender. Bowel sounds are noted. On genitourinary exam, external genitalia is normal for age. The vaginal mucosa is noted to be slightly atrophic. The cervix is visualized and no lesions are noted. The uterus is noted to be slightly adherent to the anterior abdominal wall, most likely secondary to her prior C-sections. No adnexal masses are palpated. ASSESSMENT: Thickened endometrium with inability to obtain adequate specimen in the office. PLAN: Hysteroscopy, dilation and curettage with Cytotec the night before. Surgery is reviewed with the patient. The risks are reviewed including perforation. The patient states understanding and all questions are answered. We will proceed with hysteroscopy, dilation and curettage for this patient. MMODL / IJN: [id number] /
[~2019-01-25 07:53] MED LIST changes: -ALPRAZolam 0.25 MG TAB PO PRN; -ALPRAZolam 0.5 MG TAB PO PRN; -ASPIRIN 325 MG TAB PO ONE; -ATORVASTATIN 80 MG TAB PO ONE; +DEXAMETHASONE SOD PHOSPHATE 10 MG/ML 1 ML VIAL IV ONE; -HEPARIN SODIUM 1,000 UN/ML (10ML VL) IV ONE; -HEPARIN SODIUM 1,000 UN/ML (10ML VL) ONE; +HYDROmorphone 0.5 MG/0.5 ML SYRINGE IVP PRN; -INSULIN ASPART (NovoLOG) 100 UNIT/ML VIAL SQ ONE; -IOPAMIDOL-370 100ML BTL INJ ONE; +LIDOCAINE 1% 20 ML VIAL (10MG/ML) FOR IV START INTRADERMA PRN; -LIDOCAINE 1% INJ 10MG/ML (20 ML MDV) ONE; -LIDOCAINE 1% INJ 10MG/ML (20 ML MDV) SQ ONE; +MIDAZOLAM 2 MG/2 ML VIAL IV PRN; -MIDAZOLAM 2 MG/2 ML VIAL IVP ONE; -NITROGLYCERIN SL TABS 0.4 MG TAB SUBLINGUAL PRN; +ONDANSETRON 4 MG/2 ML VIAL IVP ONE; +Pre Op ABX Message 1 EACH MISC MISCELLANE ONE; -RX INFO: IV CONTRAST WAS GIVEN 1 EACH MISC MISCELLANE PRN; +SCOPOLAMINE 1.5MG/72HR PATCH TRANSDERM ONE; -SODIUM CHLORIDE 0.9% 1,000 ML IV SCH; -SODIUM CHLORIDE 0.9% 1,000 ML in EMPTY BAG 1 BAG IV ONE; -VERAPAMIL 2.5 MG/ML 2 ML AMP ONE
[2019-01-25 08:35] LABS: Glucose,Whole Blood 296 mg/dL (75-99)
[2019-01-25] MEDS: LACTATED RINGERS 1,000 ML IV SCH ×2 (08:44→12:24)
[2019-01-25] MEDS ORDERED: METOPROLOL TARTRATE 25 MG TAB PO STA (08:50)
[2019-01-25] MEDS ORDERED: INSULIN ASPART (NovoLOG) 100 UNIT/ML VIAL SQ ONE ×7 (08:54→16:19)
[2019-01-25 09:59] LABS: Glucose,Whole Blood 284 mg/dL (75-99)
[2019-01-25 10:58] LABS: Glucose,Whole Blood 264 mg/dL (75-99)
[2019-01-25 12:03] LABS: Glucose,Whole Blood 266 mg/dL (75-99)
[2019-01-25] MEDS ORDERED: ePHEDrine SULFATE/0.9% NACL/PF 50 MG/5 ML SYRINGE IV ONE (12:23)
[2019-01-25] MEDS ORDERED: fentaNYL (PF) 50 MCG/ML 2 ML AMP ONE (12:23)
[2019-01-25] MEDS ORDERED: LIDOCAINE 1% INJ 10MG/ML (20 ML MDV) ONE (12:23)
[2019-01-25] MEDS ORDERED: MIDAZOLAM 2 MG/2 ML VIAL ONE (12:23)
[2019-01-25] MEDS ORDERED: PROPOFOL 10 MG/ML 20 ML VIAL IV ONE (12:23)
[2019-01-25] MEDS ORDERED: SUCCINYLCHOLINE CHLORIDE 100 MG/5 ML SYR IV ONE (12:23)
[2019-01-25] MEDS ORDERED: LACTATED RINGERS 1,000 ML IV ONE (12:56)
[2019-01-25] MEDS ORDERED: SILVER NITRATE APPLICATOR 1 EACH STICK..EA. TOPICAL ONE (13:05)
--- NOTE | 2019-01-25 13:21 | P.OP ---
Date of Procedure: 01/25/19 Preoperative Diagnosis: thickened endometrium, failed office EMB Postoperative Diagnosis: same Procedure(s) Performed: hysteroscopy dilation and curettage Surgeon: Jayne Elam Estimated Blood Loss (ml): 5 IV fluids (ml): 500 Urine output (ml): 200 Pathology: other (endometrial curettings) Condition: stable Disposition: PACU Indications for Procedure: thickened endometrium with uterine fibroid Operative Findings: large submucosal fibroid. Description of Procedure: Patient was seen in the preoperative area and informed consent was obtained. Patient was taken back to the operating suite where general anesthesia was obtained without difficulty by the anesthesia . She was prepped and draped in normal sterile fashion in the dorsal lithotomy position. A weighted speculum was placed in the posterior vaginal vault after a red rubber catheter was used to drain the bladder clear yellow urine. The anterior lip of the cervix is visualized and grasped with a single-tooth tenaculum. The e ndocervical canal was then dilated to 16-Turkmen uterine sound was then used to get a total uterine length of 7 cm. The hysteroscope was placed through the cervix and toward the endometrial cavity. A large submucosal fibroid was noted. A large base of the fibroid was noted posteriorly to fundally. Minimal movement was noted with insufflation of sterile water. Multiple pictures were taken. Hysteroscope was removed. A gentle sharp curettage was performed to obtain tissue minimal tissue was obtained. The fibroid appeared normal in nature smooth borders. Single tooth tenaculum was taken off of the anterior lip of the cervix hemostasis was appreciated. All instruments were removed from the patient's vaginal vault. All counts were correct 2 and patient tolerated procedure well..
[2019-01-25 13:44] VITALS: TEMP 97.6
[2019-01-25 14:09] LABS: Glucose,Whole Blood 288 mg/dL (75-99)
[2019-01-25 14:46] LABS: Glucose,Whole Blood 282 mg/dL (75-99)
[2019-01-25 15:04] LABS: Glucose,Whole Blood 263 mg/dL (75-99)
[2019-01-25 15:59] VITALS: RESP 18
[2019-01-25 16:15] LABS: Glucose,Whole Blood 262 mg/dL (75-99)
[2019-01-25 17:01] VITALS: BP 117/74
[2019-01-25 17:08] LABS: Glucose,Whole Blood 255 mg/dL (75-99)
--- NOTE | 2019-01-25 17:27 | XR ---
EXAMINATION: XR chest 1V portable DATE AND TIME: 01/25/2019 5:19 PM CLINICAL INDICATION: PHH; low SPO2 TECHNIQUE: AP portable upright COMPARISON: 02/19/2016 FINDINGS: The overlying soft tissues are prominent. The lungs appear to be clear. The pleural spaces are negative as seen. The cardiac silhouette is not enlarged. Tortuous thoracic aorta redemonstrated. The skeletal structures and soft tissues are negative for acute findings. IMPRESSION: NO ACUTE PROCESS.
[2019-01-25 17:38] VITALS: PULSE 92
== END 2019-01-25 17:51 | disposition home or self-care (01) ==
LOC: OR 07:53
PROVIDERS: ATTEND Obstetrics & Gynecology Obstetrics
DX: D25.0 Submucous leiomyoma of uterus (principal); I10 Essential (primary) hypertension; I25.10 Atherosclerotic heart disease of native coronary artery without angina pectoris; E11.9 Type 2 diabetes mellitus without complications; F41.0 Panic disorder [episodic paroxysmal anxiety]; E78.5 Hyperlipidemia, unspecified; E07.9 Disorder of thyroid, unspecified; K21.9 Gastro-esophageal reflux disease without esophagitis; E66.3 Overweight; Z68.42 Body mass index [BMI] 45.0-49.9, adult; D64.9 Anemia, unspecified; Z78.0 Asymptomatic menopausal state; Z87.891 Personal history of nicotine dependence; Z86.79 Personal history of other diseases of the circulatory system; Z88.5 Allergy status to narcotic agent; Z79.890 Hormone replacement therapy; Z98.51 Tubal ligation status; Z98.890 Other specified postprocedural states; Z82.49 Family history of ischemic heart disease and other diseases of the circulatory system; Z79.82 Long term (current) use of aspirin; Z79.84 Long term (current) use of oral hypoglycemic drugs; Z79.899 Other long term (current) drug therapy
CPT/HCPCS: 94660; 88305; 71045; 58558; J2250; J1100; J2405; J2001; J3010; J0330; J2704

== ENCOUNTER → 2019-12-20 | Outpatient (CLI) | payer BC ==
[2019-12-20 16:53] LABS: African American GFR (CKD) >90 (>60 ml/min/1.73 sqM); Blood Urea Nitrogen 9 mg/dL (7-17); Non-African American GFR(CKD) >90 (>60 ml/min/1.73 sqM)
--- NOTE | 2019-12-21 07:42 | CT ---
EXAMINATION TYPE: CT angio chest DATE OF EXAM: 12/20/2019 COMPARISON: Chest x-ray January 25, 2019. CT aorta February 05, 2017 HISTORY: Thoracic aneurysm CT DLP: 728.5 mGycm. Automated Exposure Control for Dose Reduction was Utilized. CONTRAST: CTA scan of the thorax is performed with IV Contrast, patient injected with 100 mL of Isovue 370, pul monary embolism protocol. 3-D reconstructed Images are created on independent workstation and reviewe d. FINDINGS: LUNGS: Stable slightly elevated right hemidiaphragm. Mild bibasilar linear scarring or atelectasis re demonstrated . No pleural effusion or pneumothorax seen. Lungs remain clear. No new or suspicious mas s or nodule. MEDIASTINUM: There is even more prominent central pulmonary artery at 3.9 cm image 21. Findings consi stent with underlying pulmonary hypertension. Coronary artery calcification redemonstrated in the pro ximal LAD. There are no new greater than 1 cm hilar or mediastinal lymph nodes. No cardiomegaly or pericardial effusion is seen. Ascending aorta measures up to 4.3 cm in diameter axial image 22 accou nting for technical differences not significantly changed from prior. Normal 3 vessel origin from the aortic arch. No aneurysm extension into the arch or descending aorta. OTHER: Persistent partial visualization of hepatomegaly and fatty infiltration of liver. Multilevel m oderate spurring in the spine is redemonstrated. Persistent mild to moderate generalized atrophy of t hese central pancreatic body. IMPRESSION: Stable 4.3 cm ascending aortic aneurysm
== END | disposition home or self-care (01) ==
LOC: RADCTMAIN 16:16
PROVIDERS: ATTEND Internal Medicine Interventional Cardiology
DX: I71.2 Thoracic aortic aneurysm, without rupture (principal)
CPT/HCPCS: 82565; 84520; 71275; 36415; Q9967

== ENCOUNTER → 2020-09-10 | Outpatient (CLI) | payer BC ==
--- NOTE | 2020-09-10 16:28 | XR ---
EXAMINATION TYPE: XR shoulder complete RT, XR humerus RT DATE OF EXAM: 09/10/2020 CLINICAL HISTORY: pain TECHNIQUE: Three views of the right shoulder are obtained. 2 views of the right humerus are also sub mitted. COMPARISON: None FINDINGS: There is no acute fracture/dislocation evident. The acromioclavicular and glenohumeral margaret int spaces appear mildly narrowed. Subacromial spurring noted.. The visualized ribs are intact and u nremarkable. IMPRESSION: 1. There is no acute fracture or dislocation. ICD 10 NO FRACTURE, INITIAL EVALUATION
== END | disposition home or self-care (01) ==
LOC: RADXRMAIN 15:13
PROVIDERS: ATTEND Nurse Practitioner
DX: M25.511 Pain in right shoulder (principal)

== ENCOUNTER 2021-01-01 08:47 | Observation (INO) | payer BC ==
--- NOTE | 2021-01-01 09:11 | ED ---
General Adult HPI - General Chief complaint: Shortness of Breath Stated complaint: post op-SOB Time Seen by Provider: 01/01/21 08:56 Source: patient, family Mode of arrival: ambulatory Limitations: no limitations - History of Present Illness Initial comments: Dictation was produced using B2Brev dictation software. please excuse any grammatical, word or spelling errors. Chief Complaint: 60-year-old female presents to the emergency department for shortness of breath History of Present Illness: 60-year-old female presents with shortness of breath. She went for a postoperative appointment. Yesterday patient had a arthroscopy of the right shoulder performed by orthopedic surgery. She went for her postop appointment today and was told to come to the emergency department for evaluation. Patient states that the orthopedic surgeons word that patient is experiencing complications from a nerve block. Patient denies any chest pa in. She states that she is short of breath. She does have cardiac issues. States that she has a leaky valve. She also has history of diabetes. Denies any history of blood clots. She does complain of some tightness to her bilateral lower extremities. No history of DVT or PE. Patient is not having chest pain. States that she feels weak. The ROS documented in this emergency department record has been reviewed and confirmed by me. Those systems with pertinent positive or negative responses have been documented in the HPI. All other systems are other negative and/or noncontributory. PHYSICAL EXAM: General Impression: Alert and oriented x3, dyspneic HEENT: Normocephalic atraumatic, extra-ocular movements intact, pupils equal and reactive to light bilaterally, mucous membranes moist. Cardiovascular: Heart regular rate and rhythm Chest: Able to complete full sentences, no retractions, no tachypnea Abdomen: abdomen soft, non-tender, non-distended, no organomegaly Musculoskeletal: Pulses present and equal in all extremities, tightness to the bilateral calf area worse on the right compared to the left. She does complain of some calf tenderness Motor: no focal deficits noted Neurological: CN II-XII grossly intact, no focal motor or sensory deficits noted Skin: Intact with no visualized rashes Psych: Normal affect and mood ED course: 60-year-old female presents with shortness of breath. She is postop day 1. vital signs upon arrival shows 92% on room air, rest of vital signs within acceptable limits. Laboratory evaluation obtained. CBC remarkable. Coag panel is negative. Metabolic panel is negative. Troponins negative.: It is negative. CT does not show any PE. Chest x-ray shows elevated right hemidiaphragm. Patient likely experiencing diaphragmatic paralysis secondary to nerve block. Case discussed with Tolu Garcia who is taking calls for Dr. Mcclure. They want to evaluate the patient further before making any sort consultations to anesthesia or pulmo nology. She related a bedside 11:15 AM found with stable medical condition. EKG interpretation: Ventricular rate 67, normal sinus rhythm,. 144, QRS 154, QTC 458, right bundle branch block. No [place] prolongation, no QTC prolongation, no ST or T-wave changes noted. EKG compared to 01/12/2019 showing no changes. Overall, this EKG is unremarkable - Related Data Home Medications Medication Instructions Recorded Confirmed Levothyroxine Sodium 175 mcg PO DAILY 02/19/16 01/01/21 Metoprolol Tartrate [Lopressor] 25 mg PO BID 10/15/17 01/01/21 Venlafaxine HCl [Effexor XR] 225 mg PO DAILY 10/15/17 01/01/21 Celecoxib [CeleBREX] 200 mg PO BID 08/13/18 01/01/21 Esomeprazole Magnesium [NexIUM] 40 mg PO DAILY 08/13/18 01/01/21 Atorvastatin Calcium [Lipitor] 20 mg PO HS 01/18/19 01/01/21 Doxycycline Hyclate [Vibramycin] 100 mg PO Q12H 01/01/21 01/01/21 HYDROcodone/APAP 7.5-325MG [Jbphh 1 tab PO Q4H PRN 01/01/21 01/01/21 7.5-325] Ondansetron Odt [Zofran Odt] 4 mg PO Q8H PRN 01/01/21 01/01/21 lisinopriL [Zestril] 5 mg PO DAILY 01/01/21 01/01/21 metFORMIN HCL [Glucophage] 1,000 mg PO BID 01/01/21 01/01/21 Allergies Allergy/AdvReac Type Severity Reaction Status Date / Time codeine Allergy Rash/Hives Verified 01/01/21 10:21 Review of Systems ROS Statement: Those systems with pertinent positive or pertinent negative responses have been documented in the HPI. ROS Other: All systems not noted in ROS Statement are negative. Past Medical History Past Medical History: Diabetes Mellitus, GERD/Reflux, Hypertension, Thyroid Disorder Additional Past Medical History / Comment(s): nausea,pain lower back pain with walking and uterine wall thickening,NIDDM type II, hypothyroid, TRAVIS heel spurs, HX Vertigo, Obesity. SHORTNESS OF BREATH W/ LITTLE ACTIVITY, LOWER BACK PAIN, OCC PALPITATIONS. History of Any Multi-Drug Resistant Organisms: None Reported Past Surgical History: Section, Orthopedic Surgery, Tubal Ligation Additional Past Surgical History / Comment(s): Lymph node removal -benign from RT side base of neck, x4. RT INDEX FINGER. COLONOSCOPY,rt heel spur Past Anesthesia/Blood Transfusion Reactions: No Reported Reaction Additional Past Anesthesia/Blood Transfusion Reaction / Comment(s): Pt received blood in past without reaction. Past Psychological History: Anxiety Smoking Status: Never smoker Past Alcohol Use History: None Reported Past Drug Use History: None Reported - Past Family History Father Family Medical History: Myocardial Infarction (OH) Additional Family Medical History / Comment(s): Father at the age of 36 yrs from a OH. Pt believes the OH was related to his illness with yellow jaundice. Mother Family Medical History: Cancer, Hypertension Additional Family Medical History / Comment(s): with CA at age 81 General Exam Limitations: no limitations Course Vital Signs 01/01/21 08:50 Temperature 98.5 F Pulse Rate 66 Respiratory 18 Rate Blood Pressure 151/85 O2 Sat by Pulse 92 L Oximetry Medical Decision Making - Lab Data Result diagrams: 01/01/21 09:17 01/01/21 09:17 Lab Results 01/01/21 01/01/21 01/01/21 Range/Units 09:17 09:17 09:17 WBC 12.6 H (3.8-10.6) k/uL RBC 4.39 (3.80-5.40) m/uL Hgb 13.8 (11.4-16.0) gm/dL Hct 42.0 (34.0-46.0) % MCV 95.8 (80.0-100.0) fL MCH 31.4 (25.0-35.0) pg MCHC 32.7 (31.0-37.0) g/dL RDW 14.1 (11.5-15.5) % Plt Count 285 (150-450) k/uL MPV 9.3 Neutrophils % 79 % Lymphocytes % 14 % Monocytes % 4 % Eosinophils % 1 % Basophils % 0 % Neutrophils # 10.0 H (1.3-7.7) k/uL Lymphocytes # 1.7 (1.0-4.8) k/uL Monocytes # 0.6 (0-1.0) k/uL Eosinophils # 0.1 (0-0.7) k/uL Basophils # 0.0 (0-0.2) k/uL Hypochromasia Slight PT 10.4 (9.0-12.0) sec INR 1.0 (<1.2) APTT 21.0 L (22.0-30.0) sec Sodium 136 L (137-145) mmol/L Potassium 5.0 (3.5-5.1) mmol/L Chloride 99 (98-107) mmol/L Carbon Dioxide 27 (22-30) mmol/L Anion Gap 10 mmol/L BUN 18 H (7-17) mg/dL Creatinine 0.58 (0.52-1.04) mg/dL Est GFR (CKD-EPI)AfAm >90 (>60 ml/min/1.73 sqM) Est GFR (CKD-EPI)NonAf >90 (>60 ml/min/1.73 sqM) Glucose 188 H (74-99) mg/dL Calcium 9.8 (8.4-10.2) mg/dL Troponin I (0.000-0.034) ng/mL NT-Pro-B Natriuret Pep pg/mL Coronavirus (PCR) (Not Detectd) 01/01/21 01/01/21 01/01/21 Range/Units 09:17 09:18 09:23 WBC (3.8-10.6) k/uL RBC (3.80-5.40) m/uL Hgb (11.4-16.0) gm/dL Hct (34.0-46.0) % MCV (80.0-100.0) fL MCH (25.0-35.0) pg MCHC (31.0-37.0) g/dL RDW (11.5-15.5) % Plt Count (150-450) k/uL MPV Neutrophils % % Lymphocytes % % Monocytes % % Eosinophils % % Basophils % % Neutrophils # (1.3-7.7) k/uL Lymphocytes # (1.0-4.8) k/uL Monocytes # (0-1.0) k/uL Eosinophils # (0-0.7) k/uL Basophils # (0-0.2) k/uL Hypochromasia PT (9.0-12.0) sec INR (<1.2) APTT (22.0-30.0) sec Sodium (137-145) mmol/L Potassium (3.5-5.1) mmol/L Chloride (98-107) mmol/L Carbon Dioxide (22-30) mmol/L Anion Gap mmol/L BUN (7-17) mg/dL Creatinine (0.52-1.04) mg/dL Est GFR (CKD-EPI)AfAm (>60 ml/min/1.73 sqM) Est GFR (CKD-EPI)NonAf (>60 ml/min/1.73 sqM) Glucose (74-99) mg/dL Calcium (8.4-10.2) mg/dL Troponin I <0.012 (0.000-0.034) ng/mL NT-Pro-B Natriuret Pep 208 pg/mL Coronavirus (PCR) Not Detected (Not Detectd) Disposition Clinical Impression: Diaphragmatic paralysis Disposition: ADMITTED IP TO THIS HOSP Condition: Fair
[2021-01-01 09:30] LABS: Basophils % (A) 0 %; Eosinophils # (A) 0.1 k/uL (0-0.7); Eosinophils % (A) 1 %; HGB 13.8 gm/dL (11.4-16.0); Hypochromasia Slight; Lymphocytes # (A) 1.7 k/uL (1.0-4.8); Lymphocytes % (A) 14 %; MCH 31.4 pg (25.0-35.0); MCHC 32.7 g/dL (31.0-37.0); MCV 95.8 fL (80.0-100.0); Mean Platelet Volume 9.3; Monocytes # (A) 0.6 k/uL (0-1.0); Monocytes % (A) 4 %; Neutrophils % (A) 79 %; Platelet Count 285 k/uL (150-450); RBC 4.39 m/uL (3.80-5.40); RDW 14.1 % (11.5-15.5); WBC 12.6 k/uL (3.8-10.6)
[2021-01-01 09:43] LABS: African American GFR (CKD) >90 (>60 ml/min/1.73 sqM); Anion Gap 10 mmol/L; Blood Urea Nitrogen 18 mg/dL (7-17); Calcium 9.8 mg/dL (8.4-10.2); Carbon Dioxide 27 mmol/L (22-30); Chloride 99 mmol/L (98-107); Glucose 188 mg/dL (74-99); Non-African American GFR(CKD) >90 (>60 ml/min/1.73 sqM); Sodium 136 mmol/L (137-145)
[2021-01-01 09:54] LABS: Prothrombin Time 10.4 sec (9.0-12.0)
--- NOTE | 2021-01-01 10:01 | CT ---
EXAMINATION TYPE: CT angio chest DATE OF EXAM: 01/01/2021 COMPARISON: 12/20/2019 HISTORY: SOB, surgery yesterday CT DLP: 861.1 mGycm CONTRAST: CT chest with contrast and 3D reconstruction with MIP imaging is performed with IV Contrast, patient injected with 100 mL of Isovue 370. Contrast-enhanced CT of the chest was performed through the course of the pulmonary arteries with cortez g and mediastinal window settings submitted. 3D reconstruction with MIP imaging was also performed. PULMONARY ARTERIES: The pulmonary arteries and their major tributaries are patent. I do not see suyapa dence for sizable filling defect to suggest pulmonary embolic process. LUNGS: Chronic elevation right hemidiaphragm with right basilar atelectasis. No pulmonary nodule or m ass is detected. No pleural effusion. MEDIASTINUM: Thoracic aorta is of normal caliber,however, evaluation is limited given timing of the contrast bolus. If there is concern for thoracic aortic pathology consider MELANY. Correlate clinicall y . The heart is not enlarged. No evidence for mediastinal mass. No mediastinal lymph nodes greater than 1cm. HILAR STRUCTURES: No evidence for mass. No hilar lymph nodes greater than 1 cm. UPPER ABDOMEN: No significant abnormality is seen. IMPRESSION: 1. No evidence for Pulmonary embolism at this time.
--- NOTE | 2021-01-01 10:56 | XR ---
EXAMINATION TYPE: XR chest 1V portable DATE OF EXAM: 01/01/2021 HISTORY: Shortness of breath. COMPARISON: 01/25/2019 TECHNIQUE: Single view of the chest is submitted. FINDINGS: Demonstrated are scattered senescent parenchymal change. Elevation right hemidiaphragm with increased right basilar density which may reflect underlying infil trate and/or atelectasis. The heart is stable. Hilar and mediastinal structures are within normal limits. Degenerative changes are seen of the dorsal spine. IMPRESSION: 1. Elevation right hemidiaphragm with increased right basilar density which may reflect underlying i nfiltrate and/or atelectasis.
[2021-01-01] MEDS ORDERED: NALOXONE 0.4 MG/ML 1 ML VIAL IV PRN (11:04)
[2021-01-01] MEDS ORDERED: SODIUM CHLORIDE 0.9% 1,000 ML IV SCH (11:15)
[2021-01-01] MEDS: HYDROcodone/APAP 7.5-325MG 1 EACH TAB PO PRN ×2 (15:41→22:14)
[2021-01-01 17:16] LABS: Glucose,Whole Blood 181 mg/dL (75-99)
[2021-01-01] MEDS: INSULIN ASPART (NovoLOG) 100 UNIT/ML VIAL SQ SCH ×2 (17:19→22:14)
--- NOTE | 2021-01-01 17:33 | P.HPIM ---
History of Present Illness H&P Date: 01/01/21 Chief Complaint: Dyspnea 60-year-old female presented to the emergency department with significant shortness of breath, postoperative from arthroscopic of the right s houlder performed by orthopedic surgery. Patient was evaluated by orthopedics today sent to the emergency department because worsening shortness of breath and low oxygen saturation. Notes reviewed from emergency department orthopedic surgeon, was possibly concerned with the patient experiencing complication from a nerve block, with decreased expansion of the diaphragm. Patient has significant medical history of diabetes mellitus type 2 lin-hduexwc-efvesxytn, GERD/reflux, hypertension, hypothyroidism, mixed anxiety and depression, chest pain/angina, tubal ligation, and section in the past. Patient had extensive diagnostic workup in emergency department revealing no acute abnormal ities vital signs within normal range, laboratory values within normal range, diagnostic testing within normal range. Patient to stay in the hospital for observation due to possible complication of nerve block with decreased expansion of the diaphragm. Orthopedic on consult with pulmonology. After reviewing diagnostic testing and physical exam hopeful discharge less than 24 hours. Review of Systems Constitutional: Reports fatigue Eyes: bilateral as per HPI Ears: bilateral: decreased hearing Ears, nose, mouth and throat: Reports as per HPI Breasts: bilateral: as per HPI Cardiovascular: Reports decreased exercise tolerance, Reports dyspnea on exertion, Reports shortness of breath Respiratory: Reports dyspnea, Reports pain on inspiration Gastrointestinal: Reports as per HPI Genitourinary: Reports as per HPI Menstruation: Reports as per HPI Musculoskeletal: Reports muscle weakness Musculoskeletal: right: shoulder stiffness, shoulder swelling Psychiatric: Reports anxiety Past Medical History Past Medical History: Diabetes Mellitus, GERD/Reflux, Hypertension, Thyroid Disorder Additional Past Medical History / Comment(s): nausea,pain lower back pain with walking and uterine wall thickening,NIDDM type II, hypothyroid, TRAVIS heel spurs, HX Vertigo, Obesity. SHORTNESS OF BREATH W/ LITTLE ACTIVITY, LOWER BACK PAIN, OCC PALPITATIONS. History of Any Multi-Drug Resistant Organisms: None Reported Past Surgical History: Section, Orthopedic Surgery, Tubal Ligation Additional Past Surgical History / Comment(s): Lymph node removal -benign from RT side base of neck, x4. RT INDEX FINGER. COLONOSCOPY,rt heel spur Past Anesthesia/Blood Transfusion Reactions: No Reported Reaction Additional Past Anesthesia/Blood Transfusion Reaction / Comment(s): Pt received blood in past without reaction. Past Psychological History: Anxiety Additional Psychological History / Comment(s): HX POSSIBLE PANIC ATTACK. Smoking Status: Never smoker Past Alcohol Use History: None Reported Additional Past Alcohol Use History / Comment(s): Pt states she smoked from [id number], 2 PPD. Past Drug Use History: None Reported - Past Family History Father Family Medical History: Myocardial Infarction (WA) Additional Family Medical History / Comment(s): Father at the age of 36 yrs from a WA. Pt believes the WA was related to his illness with yellow jaundice. Mother Family Medical History: Cancer, Hypertension Additional Family Medical History / Comment(s): with CA at age 81 Medications and Allergies Home Medications and Allergies Comment(s): Medications and ALLERGIES reviewed Home Medications Medication Instructions Recorded Confirmed Type Levothyroxine Sodium 175 mcg PO DAILY 02/19/16 01/01/21 History Metoprolol Tartrate [Lopressor] 25 mg PO BID 10/15/17 01/01/21 History Venlafaxine HCl [Effexor XR] 225 mg PO DAILY 10/15/17 01/01/21 History Celecoxib [CeleBREX] 200 mg PO BID 08/13/18 01/01/21 History Esomeprazole Magnesium [NexIUM] 40 mg PO DAILY 08/13/18 01/01/21 History Atorvastatin Calcium [Lipitor] 20 mg PO HS 01/18/19 01/01/21 History Doxycycline Hyclate [Vibramycin] 100 mg PO Q12H 01/01/21 01/01/21 History HYDROcodone/APAP 7.5-325MG [[place] 1 tab PO Q4H PRN 01/01/21 01/01/21 History 7.5-325] Ondansetron Odt [Zofran Odt] 4 mg PO Q8H PRN 01/01/21 01/01/21 History lisinopriL [Zestril] 5 mg PO DAILY 01/01/21 01/01/21 History metFORMIN HCL [Glucophage] 1,000 mg PO BID 01/01/21 01/01/21 History Allergies Allergy/AdvReac Type Severity Reaction Status Date / Time codeine Allergy Rash/Hives Verified 01/01/21 10:21 Physical Exam Vitals: Vital Signs Temp Pulse Pulse Pulse Resp BP BP 01/01/21 17:13 98.0 F 73 14 138/74 01/01/21 14:28 97.6 F 79 18 01/01/21 08:50 98.5 F 66 18 151/85 BP Pulse Ox 01/01/21 17:13 99 01/01/21 14:28 123/55 97 01/01/21 08:50 92 L Intake and Output 01/01/21 01/01/21 01/01/21 06:59 14:59 22:59 Other: # Voids 1 Weight 117.934 kg - Constitutional General appearance: cooperative, no acute distress, obese - EENT Eyes: EOMI, PERRLA ENT: normal oropharynx Ears: bilateral: normal - Neck Neck: normal ROM Carotids: bilateral: upstroke normal Thyroid: bilateral: normal size - Respiratory Respiratory: bilateral: CTA (Anterior and posterior lung serrano) - Cardiovascular Normal sinus rhythm Heart rate: 84 Rhythm: regular Heart sounds: normal: S1, S2 dorsalis pedis Peripheral Pulses: bilateral: Normal radial pulse Peripheral Pulses: bilateral: Normal - Gastrointestinal General gastrointestinal: normal bowel sounds - Integumentary Integumentary: pale - Neurologic Neurologic: CNII-XII intact - Musculoskeletal Musculoskeletal: generalized weakness - Psychiatric Psychiatric: A&O x's 3, appropriate affect, intact judgment & insight Results CBC & Chem 7: 01/01/21 09:17 01/01/21 09:17 Labs: Abnormal Lab Results - Last 24 Hours (Table) 01/01/21 01/01/21 01/01/21 Range/Units 09:17 09:17 09:17 WBC 12.6 H (3.8-10.6) k/uL Neutrophils # 10.0 H (1.3-7.7) k/uL APTT 21.0 L (22.0-30.0) sec Sodium 136 L (137-145) mmol/L BUN 18 H (7-17) mg/dL Glucose 188 H (74-99) mg/dL POC Glucose (mg/dL) (75-99) mg/dL 01/01/21 Range/Units 17:15 WBC (3.8-10.6) k/uL Neutrophils # (1.3-7.7) k/uL APTT (22.0-30.0) sec Sodium (137-145) mmol/L BUN (7-17) mg/dL Glucose (74-99) mg/dL POC Glucose (mg/dL) 181 H (75-99) mg/dL Chest x-ray: report reviewed CT scan - chest: report reviewed Thrombosis Risk Factor Assmnt - Choose All That Apply Each Factor Represents 1 point: Obesity (BMI >25) Each Risk Factor Represents 2 Points: Age 61-74 years, Laparoscopic surgery Thrombosis Risk Factor Assessment Total Risk Factor Score: 5 Thrombosis Risk Factor Assessment Level: High Risk Assessment and Plan Assessment: Dyspnea Possible diaphragmatic paralysis secondary to nerve block performed prior to orthopedic procedure 2 days ago, Recent arthroscopy of right shoulder Diabetes mellitus type 2 [id number]-[id number] GERD/reflux Hypertension Thyroid disorder History of vertigo Bilateral heel spurs History of History of tubal ligation History of chest pain/angina Full code Plan: Dyspnea, possible diaphragmatic paralysis, ruled out patient has full lung expansion; we'll continue to monitor overnight Postoperative arthroscopic of right shoulder, continue analgesics Diabetes mellitus type 2, continue home medications and sliding scale Continue home medications Continue medical management Monitor vital signs and diagnostic testing GI/DVT prophylaxis Further recommendations to come based on patient's clinical condition Hopeful discharge in a.m. Time with Patient: Greater than 30
[2021-01-01] MEDS: LACTATED RINGERS 1,000 ML IV SCH (18:18)
[2021-01-01] MEDS ORDERED: TEMAZEPAM 7.5 MG CAP PO PRN (18:49)
[2021-01-01] MEDS: MORPHINE SULFATE 2 MG/ML SYRINGE IVP PRN ×2 (19:48→23:18)
[2021-01-01 20:56] LABS: Glucose,Whole Blood 179 mg/dL (75-99)
[2021-01-01] MEDS ORDERED: ATORVASTATIN 20 MG TAB PO SCH (21:00)
[2021-01-01] MEDS: metFORMIN 500 MG TAB PO SCH (22:13)
[2021-01-01] MEDS: METOPROLOL TARTRATE 25 MG TAB PO SCH (22:21)
[2021-01-01] MEDS: DOXYCYCLINE 100 MG CAP PO SCH (22:39)
[2021-01-02 02:58] VITALS: RESP 18
[2021-01-02] MEDS: HYDROcodone/APAP 7.5-325MG 1 EACH TAB PO PRN (03:02)
[2021-01-02] MEDS: LACTATED RINGERS 1,000 ML IV SCH (04:22)
[2021-01-02] MEDS: MORPHINE SULFATE 2 MG/ML SYRINGE IVP PRN (04:48)
[2021-01-02 05:32] LABS: ALT 29 U/L (4-34); AST 40 U/L (14-36); African American GFR (CKD) >90 (>60 ml/min/1.73 sqM); Albumin 4.3 g/dL (3.5-5.0); Albumin/Globulin Ratio 1.7; Alkaline Phosphatase 85 U/L (38-126); Anion Gap 11 mmol/L; Blood Urea Nitrogen 18 mg/dL (7-17); Calcium 9.8 mg/dL (8.4-10.2); Carbon Dioxide 28 mmol/L (22-30); Chloride 97 mmol/L (98-107); Globulin 2.6 g/dL; Glucose 166 mg/dL (74-99); Magnesium 1.6 mg/dL (1.6-2.3); Non-African American GFR(CKD) >90 (>60 ml/min/1.73 sqM); Potassium 4.7 mmol/L (3.5-5.1); Sodium 136 mmol/L (137-145); Total Bilirubin 0.4 mg/dL (0.2-1.3); Total Protein 6.9 g/dL (6.3-8.2)
[2021-01-02 05:35] LABS: Basophils # (A) 0.1 k/uL (0-0.2); Basophils % (A) 1 %; Eosinophils # (A) 0.3 k/uL (0-0.7); Eosinophils % (A) 3 %; HCT 36.4 % (34.0-46.0); HGB 12.2 gm/dL (11.4-16.0); Lymphocytes % (A) 23 %; MCH 31.2 pg (25.0-35.0); MCHC 33.5 g/dL (31.0-37.0); MCV 93.3 fL (80.0-100.0); Mean Platelet Volume 9.1; Monocytes # (A) 0.6 k/uL (0-1.0); Monocytes % (A) 4 %; Neutrophils # (A) 8.8 k/uL (1.3-7.7); Neutrophils % (A) 67 %; Platelet Count 288 k/uL (150-450); RBC 3.91 m/uL (3.80-5.40); RDW 14.1 % (11.5-15.5); WBC 13.1 k/uL (3.8-10.6)
[2021-01-02] MEDS ORDERED: LEVOTHYROXINE 88 MCG TAB PO SCH (06:30)
[2021-01-02 07:13] LABS: Glucose,Whole Blood 183 mg/dL (75-99)
[2021-01-02] MEDS ORDERED: PANTOPRAZOLE 40 MG TABLET PO SCH (07:30)
[2021-01-02] MEDS: metFORMIN 500 MG TAB PO SCH (07:40)
[2021-01-02] MEDS: METOPROLOL TARTRATE 25 MG TAB PO SCH (07:40)
[2021-01-02] MEDS: DOXYCYCLINE 100 MG CAP PO SCH (07:41)
[2021-01-02] MEDS: INSULIN ASPART (NovoLOG) 100 UNIT/ML VIAL SQ SCH (07:42)
--- NOTE | 2021-01-02 08:12 | P.DS ---
Providers Date of admission: 01/01/21 11:13 Expected date of discharge: 01/02/21 Attending physician: Tello Leiva Consults: 01/01/21 11:05 Consult Physician Routine Consulting Provider: Axel Mcclure Consult Reason/Comments: dyspnea s/p surgery Do you want consulting provider notified?: Yes 01/01/21 12:57 Consult Physician Stat Consulting Provider: Og Washington Consult Reason/Comments: DIAPHRAGMATIC PARALYSIS Do you want consulting provider notified?: Yes Primary care physician: Tello Leiva Hospital Course: 60-year-old female presented to the emergency department with significant shortness of breath, postoperative from arthroscopic of the right shoulder performed by orthopedic surgery. Patient was evaluated by orthopedics sent to the emergency department because worsening shortness of breath and low oxygen saturation. Notes reviewed from emergency department orthopedic surgeon, was possibly concerned with the patient experiencing complication from a nerve block, with decreased expansion of the diaphragm. Patient has significant medical history of diabetes mellitus type 2 glh-rxtvtff-cifhiyonp, GERD/reflux, hypertension, hypothyroidism, mixed anxiety and depression, chest pain/angina, tubal ligation, and section in the past. Patient had extensive diagnostic workup in emergency department revealing no acute abnormalities vital signs within normal range, laboratory values within normal range, diagnostic testing within normal range. Patient to stay in the hospital for observation due to possible complication of nerve block with decreased expansion of the diaphragm. Patient's tolerated hospital stay well, patient breathing without difficulty. No acute signs and symptoms of diaphragmatic paralysis noted. Patient instructed to use incentive spirometer 10 times per hour for postanesthesia. Patient to follow-up with orthopedics in 1-2 days and primary care 1-2 days. Patient discharged in stable. Assessment: Dyspnea Possible diaphragmatic paralysis secondary to nerve block performed prior to orthopedic procedure 2 days ago, Recent arthroscopy of right shoulder Diabetes mellitus type 2 [id number]-unrrwdslb GERD/reflux Hypertension Thyroid disorder History of vertigo Bilateral heel spurs History of History of tubal ligation History of chest pain/angina Full code Final diagnosis Postoperative dyspnea, diaphragmatic paralysis ruled out Postoperative arthroscopic of right shoulder Health Concerns: Postoperative complication of arthroscopic right shoulder Comorbidities Pertinent Studies: Chest x-ray, no acute cardiopulmonary processes noted CT of the chest, no acute cardiopulmonary processes noted Procedures: None performed during hospital stay Patient Condition at Discharge: Fair Plan - Discharge Summary Discharge Rx Participant: Yes New Discharge Prescriptions: Continue Levothyroxine Sodium 175 mcg PO DAILY Metoprolol Tartrate [Lopressor] 25 mg PO BID Venlafaxine HCl [Effexor XR] 225 mg PO DAILY Celecoxib [CeleBREX] 200 mg PO BID Esomeprazole Magnesium [NexIUM] 40 mg PO DAILY Atorvastatin Calcium [Lipitor] 20 mg PO HS Doxycycline Hyclate [Vibramycin] 100 mg PO Q12H HYDROcodone/APAP 7.5-325MG [[place] 7.5-325] 1 tab PO Q4H PRN PRN Reason: Pain lisinopriL [Zestril] 5 mg PO DAILY metFORMIN HCL [Glucophage] 1,000 mg PO BID Ondansetron Odt [Zofran ODT] 4 mg PO Q8H PRN PRN Reason: Nausea Discharge Medication List Levothyroxine Sodium 175 mcg PO DAILY 02/19/16 [History] Metoprolol Tartrate [Lopressor] 25 mg PO BID 10/15/17 [History] Venlafaxine HCl [Effexor XR] 225 mg PO DAILY 10/15/17 [History] Celecoxib [CeleBREX] 200 mg PO BID 08/13/18 [History] Esomeprazole Magnesium [NexIUM] 40 mg PO DAILY 08/13/18 [History] Atorvastatin Calcium [Lipitor] 20 mg PO HS 01/18/19 [History] Doxycycline Hyclate [Vibramycin] 100 mg PO Q12H 01/01/21 [History] HYDROcodone/APAP 7.5-325MG [[place] 7.5-325] 1 tab PO Q4H PRN 01/01/21 [History] Ondansetron Odt [Zofran ODT] 4 mg PO Q8H PRN 01/01/21 [History] lisinopriL [Zestril] 5 mg PO DAILY 01/01/21 [History] metFORMIN HCL [Glucophage] 1,000 mg PO BID 01/01/21 [History] Follow up Appointment(s)/Referral(s): Tello Leiva MD [Primary Care Provider] - 1-2 days Og Washington MD [STAFF PHYSICIAN] - 1 Week Patient Instructions/Handouts: How to Use an Incentive Spirometer (DC), Dyspnea (DC) Discharge Disposition: HOME SELF-CARE
[2021-01-02 08:37] VITALS: BP 139/76; PULSE 66; TEMP 97.6
[2021-01-02] MEDS ORDERED: VENLAFAXINE HCL ER 75 MG CAP PO SCH (09:00)
[2021-01-02] MEDS ORDERED: lisinopriL 5 MG TAB PO SCH (09:00)
== END 2021-01-02 09:21 | disposition home or self-care (01) ==
LOC: EC 08:47 → 6NMEDSUR 11:13
PROVIDERS: ADMIT Family Medicine; ATTEND Family Medicine
DX: J95.89 Other postprocedural complications and disorders of respiratory system, not elsewhere classified (principal); R06.00 Dyspnea, unspecified; E11.9 Type 2 diabetes mellitus without complications; K21.9 Gastro-esophageal reflux disease without esophagitis; I10 Essential (primary) hypertension; E03.9 Hypothyroidism, unspecified; Z98.890 Other specified postprocedural states; Z20.822 Contact with and (suspected) exposure to COVID-19; I45.10 Unspecified right bundle-branch block; F41.8 Other specified anxiety disorders; M54.5 Low back pain; E66.9 Obesity, unspecified; Z68.25 Body mass index [BMI] 25.0-25.9, adult; M77.31 Calcaneal spur, right foot; M77.32 Calcaneal spur, left foot; Z79.899 Other long term (current) drug therapy; Z79.890 Hormone replacement therapy; Z79.84 Long term (current) use of oral hypoglycemic drugs; Z88.5 Allergy status to narcotic agent; Z98.891 History of uterine scar from previous surgery; Z98.51 Tubal ligation status; Z87.891 Personal history of nicotine dependence; Z80.9 Family history of malignant neoplasm, unspecified; Z79.1 Long term (current) use of non-steroidal anti-inflammatories (NSAID); Z82.49 Family history of ischemic heart disease and other diseases of the circulatory system
CPT/HCPCS: 99285; 96374; 96376 ×2; 36415; 93005; 83880; 80053; 80048; 83735; 84484; 85025 ×2; 85610; 85730; 87635; 71045; 71275; G0378 ×2; J2270 ×2; Q9967

== ENCOUNTER 2022-02-09 12:30 | Emergency (ER) | payer BC ==
[2022-02-09 12:55] VITALS: TEMP 98.1
[2022-02-09] MEDS ORDERED: SODIUM CHLORIDE 0.9% 1,000 ML IV STA (15:12)
[2022-02-09 15:51] LABS: Basophils # (A) 0.1 k/uL (0-0.2); Basophils % (A) 1 %; Eosinophils # (A) 2.1 k/uL (0-0.7); Eosinophils % (A) 21 %; HCT 43.5 % (34.0-46.0); HGB 14.6 gm/dL (11.4-16.0); Lymphocytes # (A) 2.1 k/uL (1.0-4.8); Lymphocytes % (A) 21 %; MCH 30.1 pg (25.0-35.0); MCHC 33.7 g/dL (31.0-37.0); MCV 89.4 fL (80.0-100.0); Mean Platelet Volume 9.5; Monocytes # (A) 0.3 k/uL (0-1.0); Monocytes % (A) 3 %; Neutrophils # (A) 5.2 k/uL (1.3-7.7); Neutrophils % (A) 52 %; Platelet Count 285 k/uL (150-450); RBC 4.86 m/uL (3.80-5.40); RDW 14.2 % (11.5-15.5)
[2022-02-09 16:02] LABS: Partial Thromboplastin Time 22.6 sec (22.0-30.0); Prothrombin Time 10.5 sec (9.0-12.0)
[2022-02-09 16:06] LABS: ALT 35 U/L (4-34); AST 31 U/L (14-36); African American GFR (CKD) >90 (>60 ml/min/1.73 sqM); Alkaline Phosphatase 100 U/L (38-126); Anion Gap 13 mmol/L; Blood Urea Nitrogen 12 mg/dL (7-17); Calcium 9.7 mg/dL (8.4-10.2); Carbon Dioxide 25 mmol/L (22-30); Chloride 99 mmol/L (98-107); Glucose 186 mg/dL (74-99); Magnesium 1.9 mg/dL (1.6-2.3); Non-African American GFR(CKD) >90 (>60 ml/min/1.73 sqM); Potassium 4.8 mmol/L (3.5-5.1); Sodium 137 mmol/L (137-145); Total Bilirubin 0.7 mg/dL (0.2-1.3); Total Protein 7.8 g/dL (6.3-8.2)
--- NOTE | 2022-02-09 16:17 | XR ---
EXAMINATION TYPE: XR chest 2V DATE OF EXAM: 02/09/2022 COMPARISON: 01/01/2021 HISTORY: Difficulty breathing TECHNIQUE: 2 views FINDINGS: There is no heart failure nor confluent pneumonic infiltrate. Costophrenic angles are clear . There are no hilar masses. The bony thorax is intact. IMPRESSION: No active cardiopulmonary disease. There is clearing of apparent large right pleural effu katherine and right lower lobe infiltrate compared to the old exam.
[2022-02-09 17:16] LABS: Appearance,Urine Clear (Clear); Bilirubin,Urine Negative (Negative); Blood,Urine Negative (Negative); Color,Urine Light Yellow; Glucose,Urine (UA) 4+ (Negative); Ketones,Urine 1+ (Negative); Leukocyte Esterase,Urine Negative (Negative); Nitrite,Urine Negative (Negative); PH, Urine 5.5 (5.0-8.0); Protein,Urine Negative (Negative); Specific Gravity,Urine 1.017 (1.001-1.035); Urobilinogen,Urine <2.0 mg/dL (<2.0)
--- NOTE | 2022-02-09 17:46 | ED ---
Anxiety HPI - General Chief Complaint: Anxiety Stated Complaint: anxiety, SOB Time Seen by Provider: 02/09/22 14:39 Source: patient Mode of arrival: wheelchair - History of Present Illness Initial Comments: Patient is a 61-year-old female presenting with chief complaint of anxiety. Patient states that this morning she was feeling anxious and had some difficulty breathing. Patient takes Effexor extended release 225 mg daily. Patient states she did not realize when she was running low and was unable to get filled before the weekend. She ran out of the medication 2 days ago. Additionally today she admits to some lightheadedness. Patient took one of her 0.5 mg Xanax at home, he reported some relief. She denies any chest pain, palpitation, weakness, numbness, tingling, abdominal pain, nausea, vomiting, diarrhea, hematochezia, melena, cough, URI-like symptoms, lower extremity swelling. - Related Data Home Medications: Home Medications Medication Instructions Recorded Confirmed Levothyroxine Sodium 175 mcg PO DAILY 02/19/16 01/01/21 Metoprolol Tartrate [Lopressor] 25 mg PO BID 10/15/17 01/01/21 Venlafaxine HCl [Effexor XR] 225 mg PO DAILY 10/15/17 01/01/21 Celecoxib [CeleBREX] 200 mg PO BID 08/13/18 01/01/21 Esomeprazole Magnesium [NexIUM] 40 mg PO DAILY 08/13/18 01/01/21 Atorvastatin Calcium [Lipitor] 20 mg PO HS 01/18/19 01/01/21 Doxycycline Hyclate [Vibramycin] 100 mg PO Q12H 01/01/21 01/01/21 HYDROcodone/APAP 7.5-325MG [[place] 1 tab PO Q4H PRN 01/01/21 01/01/21 7.5-325] Ondansetron Odt [Zofran ODT] 4 mg PO Q8H PRN 01/01/21 01/01/21 lisinopriL [Zestril] 5 mg PO DAILY 01/01/21 01/01/21 metFORMIN HCL [Glucophage] 1,000 mg PO BID 01/01/21 01/01/21 Previous Rx's Medication Instructions Recorded Venlafaxine HCl [Effexor XR] 225 mg PO DAILY #10 tab 02/09/22 hydrOXYzine HCL [Atarax] 25 mg PO TID PRN #10 tab 02/09/22 Allergies/Adverse Reactions: Allergies Allergy/AdvReac Type Severity Reaction Status Date / Time codeine Allergy Rash/Hives Verified 02/09/22 12:55 Review of Systems ROS Statement: Those systems with pertinent positive or pertinent negative responses have been documented in the HPI. ROS Other: All systems not noted in ROS Statement are negative. Past Medical History Past Medical History: Diabetes Mellitus, GERD/Reflux, Hypertension, Thyroid Disorder Additional Past Medical History / Comment(s): nausea,pain lower back pain with walking and uterine wall thickening,NIDDM type II, hypothyroid, TRAVIS heel spurs, HX Vertigo, Obesity. SHORTNESS OF BREATH W/ LITTLE ACTIVITY, LOWER BACK PAIN, OCC PALPITATIONS. History of Any Multi-Drug Resistant Organisms: None Reported Past Surgical History: Section, Orthopedic Surgery, Tubal Ligation Additional Past Surgical History / Comment(s): Lymph node removal -benign from RT side base of neck, x4. RT INDEX FINGER. COLONOSCOPY,rt heel spur Past Anesthesia/Blood Transfusion Reactions: No Reported Reaction Additional Past Anesthesia/Blood Transfusion Reaction / Comment(s): Pt received blood in past without reaction. Past Psychological History: Anxiety Smoking Status: Never smoker Past Alcohol Use History: None Reported Past Drug Use History: None Reported - Past Family History Father Family Medical History: Myocardial Infarction ([place]) Additional Family Medical History / Comment(s): Father at the age of 36 yrs from a NH. Pt believes the NH was related to his illness with yellow jaundice. Mother Family Medical History: Cancer, Hypertension Additional Family Medical History / Comment(s): with CA at age 81 General Exam Limitations: no limitations General appearance: alert, in no apparent distress Head exam: Present: atraumatic, normocephalic, normal inspection Eye exam: Present: normal appearance, PERRL, EOMI. Absent: scleral icterus, conjunctival injection, periorbital swelling Neck exam: Present: normal inspection Respiratory exam: Present: normal lung sounds bilaterally. Absent: respiratory distress, wheezes, rales, rhonchi, stridor Cardiovascular Exam: Present: regular rate, normal rhythm, normal heart sounds. Absent: systolic murmur, diastolic murmur, rubs, gallop, clicks Extremities exam: Present: normal inspection. Absent: pedal edema Neurological exam: Present: alert, oriented X3, CN II-XII intact Psychiatric exam: Present: normal affect, normal mood Skin exam: Present: warm, dry, intact, normal color. Absent: rash Course Vital Signs 02/09/22 12:49 Temperature 98.1 F Pulse Rate 66 Respiratory 16 Rate Blood Pressure 136/77 O2 Sat by Pulse 97 Oximetry Medical Decision Making - Medical Decision Making Patient is a 61-year-old female presenting with chief complaint of anxiety and difficulty breathing. She ran out of her Effexor 2 days ago, states that she woke this morning with the symptoms. Symptoms were somewhat alleviated after taking one of her 's Xanax. On examination heart and lungs are clear to auscultation, there is no lower extremity swelling. CBC shows no leukocytosis or anemia. Normal coags. Electrolytes are WNL. Troponin is less than 0.012. EKG shows no acute changes. Urine shows 4+ glucose and 1+ ketones. Chest x-ray shows no acute process. On reassessment patient reports improvement in her symptoms. Symptoms are likely related to anxiety. Patient is given a 10 day course of medication refill until she is able to get refills from her PCP. Also given hydroxyzine when necessary.Follow-up with PCP. Report back to ER with any new or worsening symptoms. Discussed return parameters and answered all questions. Patient conveyed verbal understanding and agreed to the plan. I discussed this case in detail with my attending Dr. Queen. - Lab Data Result diagrams: 02/09/22 15:30 02/09/22 15:30 Lab Results 02/09/22 02/09/22 02/09/22 Range/Units 15:30 15:30 15:30 WBC 10.0 (3.8-10.6) k/uL RBC 4.86 (3.80-5.40) m/uL Hgb 14.6 (11.4-16.0) gm/dL Hct 43.5 (34.0-46.0) % MCV 89.4 (80.0-100.0) fL MCH 30.1 (25.0-35.0) pg MCHC 33.7 (31.0-37.0) g/dL RDW 14.2 (11.5-15.5) % Plt Count 285 (150-450) k/uL MPV 9.5 Neutrophils % 52 % Lymphocytes % 21 % Monocytes % 3 % Eosinophils % 21 % Basophils % 1 % Neutrophils # 5.2 (1.3-7.7) k/uL Lymphocytes # 2.1 (1.0-4.8) k/uL Monocytes # 0.3 (0-1.0) k/uL Eosinophils # 2.1 H (0-0.7) k/uL Basophils # 0.1 (0-0.2) k/uL Manual Slide Review Performed PT 10.5 (9.0-12.0) sec INR 1.0 (<1.2) APTT 22.6 (22.0-30.0) sec Sodium 137 (137-145) mmol/L Potassium 4.8 (3.5-5.1) mmol/L Chloride 99 (98-107) mmol/L Carbon Dioxide 25 (22-30) mmol/L Anion Gap 13 mmol/L BUN 12 (7-17) mg/dL Creatinine 0.58 (0.52-1.04) mg/dL Est GFR (CKD-EPI)AfAm >90 (>60 ml/min/1.73 sqM) Est GFR (CKD-EPI)NonAf >90 (>60 ml/min/1.73 sqM) Glucose 186 H (74-99) mg/dL Plasma Lactic Acid Jordi (0.7-2.0) mmol/L Calcium 9.7 (8.4-10.2) mg/dL Magnesium 1.9 (1.6-2.3) mg/dL Total Bilirubin 0.7 (0.2-1.3) mg/dL AST 31 (14-36) U/L ALT 35 H (4-34) U/L Alkaline Phosphatase 100 (38-126) U/L Troponin I (0.000-0.034) ng/mL Total Protein 7.8 (6.3-8.2) g/dL Albumin 5.0 (3.5-5.0) g/dL Urine Color Urine Appearance (Clear) Urine pH (5.0-8.0) Ur Specific [place] (1.001-1.035) Urine Protein (Negative) Urine Glucose (UA) (Negative) Urine Ketones (Negative) Urine Blood (Negative) Urine Nitrite (Negative) Urine Bilirubin (Negative) Urine Urobilinogen (<2.0) mg/dL Ur Leukocyte Esterase (Negative) 02/09/22 02/09/22 02/09/22 Range/Units 15:30 15:30 17:02 WBC (3.8-10.6) k/uL RBC (3.80-5.40) m/uL Hgb (11.4-16.0) gm/dL Hct (34.0-46.0) % MCV (80.0-100.0) fL MCH (25.0-35.0) pg MCHC (31.0-37.0) g/dL RDW (11.5-15.5) % Plt Count (150-450) k/uL MPV Neutrophils % % Lymphocytes % % Monocytes % % Eosinophils % % Basophils % % Neutrophils # (1.3-7.7) k/uL Lymphocytes # (1.0-4.8) k/uL Monocytes # (0-1.0) k/uL Eosinophils # (0-0.7) k/uL Basophils # (0-0.2) k/uL Manual Slide Review PT (9.0-12.0) sec INR (<1.2) APTT (22.0-30.0) sec Sodium (137-145) mmol/L Potassium (3.5-5.1) mmol/L Chloride (98-107) mmol/L Carbon Dioxide (22-30) mmol/L Anion Gap mmol/L BUN (7-17) mg/dL Creatinine (0.52-1.04) mg/dL Est GFR (CKD-EPI)AfAm (>60 ml/min/1.73 sqM) Est GFR (CKD-EPI)NonAf (>60 ml/min/1.73 sqM) Glucose (74-99) mg/dL Plasma Lactic Acid Jordi 1.2 (0.7-2.0) mmol/L Calcium (8.4-10.2) mg/dL Magnesium (1.6-2.3) mg/dL Total Bilirubin (0.2-1.3) mg/dL AST (14-36) U/L ALT (4-34) U/L Alkaline Phosphatase (38-126) U/L Troponin I <0.012 (0.000-0.034) ng/mL Total Protein (6.3-8.2) g/dL Albumin (3.5-5.0) g/dL Urine Color Light Yellow Urine Appearance Clear (Clear) Urine pH 5.5 (5.0-8.0) Ur Specific [place] 1.017 (1.001-1.035) Urine Protein Negative (Negative) Urine Glucose (UA) 4+ H (Negative) Urine Ketones 1+ H (Negative) Urine Blood Negative (Negative) Urine Nitrite Negative (Negative) Urine Bilirubin Negative (Negative) Urine Urobilinogen <2.0 (<2.0) mg/dL Ur Leukocyte Esterase Negative (Negative) Disposition Clinical Impression: Acute anxiety Disposition: HOME SELF-CARE Condition: Good Instructions (If sedation given, give patient instructions): Generalized Anxiety Disorder (ED), Dyspnea (ED) Additional Instructions: Follow up with PCP. Report back to ER with any new or worsening symptoms. Take medication as prescribed. Hydroxyzine may cause drowsiness, do not take before driving or operating heavy machinery. Prescriptions: hydrOXYzine HCL [Atarax] 25 mg PO TID PRN #10 tab PRN Reason: Anxiety Venlafaxine HCl [Effexor XR] 225 mg PO DAILY #10 tab Is patient prescribed a controlled substance at d/c from ED?: No Referrals: Tello Leiva MD [Primary Care Provider] - 1-2 days Time of Disposition: 17:50
[2022-02-09 19:08] VITALS: RESP 18
[2022-02-09 19:25] VITALS: BP 124/85; PULSE 84
== END 2022-02-09 18:39 | disposition home or self-care (01) ==
LOC: EC 12:30
DX: F41.9 Anxiety disorder, unspecified (principal); R06.02 Shortness of breath; E11.9 Type 2 diabetes mellitus without complications; E66.9 Obesity, unspecified; K21.9 Gastro-esophageal reflux disease without esophagitis; I10 Essential (primary) hypertension; E03.9 Hypothyroidism, unspecified; Z79.84 Long term (current) use of oral hypoglycemic drugs; Z79.890 Hormone replacement therapy; Z88.5 Allergy status to narcotic agent
CPT/HCPCS: 36415; 71046; 80053; 81003; 83605; 83735; 84484; 85025; 85610; 85730; 93005; 99285

== ENCOUNTER → 2022-06-03 | Outpatient (CLI) | payer BC ==
--- NOTE | 2022-06-04 09:06 | MM ---
Reason for Exam: Screening (asymptomatic). Last mammogram was performed 4 year(s) and 5 month(s) ago. Patient History: Menarche at age 13. First Full-Term at age 15. Left ovary removed at age 60. Right ovary removed at age 60. Hysterectomy at age 60. Postmenopausal. 07/07/2011, Benign Core Biopsy on the left side. 07/07/2011, Benign Core Biopsy on the right side. Risk Values: Rachel 5 year model risk: 1.6%. NCI Lifetime model risk: 6.6%. Prior Study Comparison: 09/02/2016 Bilateral Screening Mammogram, [facility]. 01/01/2018 Bilateral Screening Mammogram, [facility]. 07/05/2018 Right Diagnostic Mammogram, [facility]. Tissue Density: The breast tissue is heterogeneously dense. This may lower the sensitivity of mammography. Findings: Analyzed By CAD. Right breast: Focal asymmetry anterior depth 4.3 cm from the nipple on CC view measuring 4 mm. Left breast: There is no suspicious group of microcalcifications or new suspicious mass in either breast. Overall Assessment: Incomplete: need additional imaging evaluation, BI-RAD 0 Management: Diagnostic Mammogram of the right breast. A clinical breast exam by your physician is recommended on an annual basis and results should be correlated with mammographic findings. [facility] will attempt to contact patient to return for supplemental views and ultrasound if indicated. Electronically signed and approved by: Ad Costello DO
== END | disposition home or self-care (01) ==
LOC: RADMAMWWP 16:44
PROVIDERS: ATTEND Family Medicine
DX: Z12.31 Encounter for screening mammogram for malignant neoplasm of breast (principal); Z78.0 Asymptomatic menopausal state
CPT/HCPCS: 77067

== ENCOUNTER → 2022-06-05 | Outpatient (CLI) | payer BC ==
--- NOTE | 2022-06-05 15:15 | MM ---
Reason for Exam: Additional evaluation requested from abnormal screening. Last screening mammogram was performed less than 1 month ago. Patient History: Menarche at age 13. First Full-Term at age 15. Left ovary removed at age 60. Right ovary removed at age 60. Hysterectomy at age 60. Postmenopausal. 07/07/2011, Benign Core Biopsy on the left side. 07/07/2011, Benign Core Biopsy on the right side. Risk Values: Rachel 5 year model risk: 1.6%. NCI Lifetime model risk: 6.6%. Prior Study Comparison: 01/01/2018 Bilateral Screening Mammogram, [facility]. 07/05/2018 Right Diagnostic Mammogram, [facility]. 06/03/2022 Bilateral MG screening mammo w CAD, [facility]. Tissue Density: Right: The breast tissue is heterogeneously dense. This may lower the sensitivity of mammography. Findings: Analyzed By CAD. Area of concern compresses out and completely disappears on compression imaging. No suspicious masses, calcifications or distortions. Right breast biopsy clip. Overall Assessment: Negative, BI-RAD 1 Management: Screening Mammogram of both breasts in 1 year. A clinical breast exam by your physician is recommended on an annual basis and results should be correlated with mammographic findings. This exam should not preclude additional follow-up of suspicious palpable abnormalities. Results were given to the patient verbally at the time of exam. Electronically signed and approved by: Ad Costello DO
== END | disposition home or self-care (01) ==
LOC: RADMAMWWP 14:06
PROVIDERS: ATTEND Family Medicine
DX: R92.8 Other abnormal and inconclusive findings on diagnostic imaging of breast (principal); Z78.0 Asymptomatic menopausal state; Z90.721 Acquired absence of ovaries, unilateral
CPT/HCPCS: 77065

== ENCOUNTER 2022-07-24 10:05 | Inpatient (IN) | payer BC ==
[2022-07-24 10:47] LABS: Basophils # (A) 0.1 k/uL (0-0.2); Basophils % (A) 1 %; Eosinophils # (A) 0.5 k/uL (0-0.7); Eosinophils % (A) 8 %; HCT 38.2 % (34.0-46.0); HGB 12.7 gm/dL (11.4-16.0); Lymphocytes # (A) 1.4 k/uL (1.0-4.8); Lymphocytes % (A) 21 %; MCH 29.6 pg (25.0-35.0); MCHC 33.4 g/dL (31.0-37.0); MCV 88.8 fL (80.0-100.0); Mean Platelet Volume 9.3; Monocytes # (A) 0.3 k/uL (0-1.0); Monocytes % (A) 4 %; Neutrophils # (A) 4.1 k/uL (1.3-7.7); Neutrophils % (A) 64 %; Platelet Count 235 k/uL (150-450); RDW 14.4 % (11.5-15.5); WBC 6.4 k/uL (3.8-10.6)
--- NOTE | 2022-07-24 10:50 | XR ---
EXAMINATION TYPE: XR chest 2V DATE OF EXAM: 07/24/2022 10:38 AM COMPARISON: Chest radiographs from 02/09/2022 TECHNIQUE: XR chest 2V Frontal and lateral views of the chest. CLINICAL INDICATION:Female, 62 years old with history of Chest Pain; FINDINGS: Lungs/Pleura: There is no evidence of pleural effusion or pneumothorax. No focal consolidation. Promi nent of the bilateral central perihilar vasculature. Heart/mediastinum: Cardiomediastinal silhouette is unremarkable. Musculoskeletal: No acute osseous pathology. IMPRESSION: Prominence of the bilateral central perihilar vasculature which could be seen with early pulmonary ed eh.
--- NOTE | 2022-07-24 10:56 | ED ---
General Adult HPI - General Chief complaint: Chest Pain Stated complaint: Chest Pain,SJ Time Seen by Provider: 07/24/22 10:15 Source: patient, RN notes reviewed, old records reviewed Mode of arrival: wheelchair Limitations: no limitations - History of Present Illness Initial comments: 62-year-old female sent from primary care physician for evaluation of dyspnea and mild chest pain. Patient states over the past one week or so she's had increased exertional dyspnea and a mild chest tightness. No prior history of CAD. No history of CHF. She does also reports some bilateral lower extremity swelling. - Related Data Home Medications Medication Instructions Recorded Confirmed Levothyroxine Sodium 175 mcg PO DAILY 02/19/16 07/24/22 Metoprolol Tartrate [Lopressor] 25 mg PO BID 10/15/17 07/24/22 Venlafaxine HCl [Effexor XR] 225 mg PO DAILY 10/15/17 07/24/22 Celecoxib [CeleBREX] 200 mg PO DAILY 08/13/18 07/24/22 Esomeprazole Magnesium [NexIUM] 40 mg PO DAILY 08/13/18 07/24/22 Atorvastatin Calcium [Lipitor] 20 mg PO HS 01/18/19 07/24/22 lisinopriL [Zestril] 5 mg PO DAILY 01/01/21 07/24/22 metFORMIN HCL [Glucophage] 1,000 mg PO BID 01/01/21 07/24/22 Prochlorperazine [Compazine] 10 mg PO Q6H PRN 07/24/22 07/24/22 Allergies Allergy/AdvReac Type Severity Reaction Status Date / Time codeine Allergy Rash/Hives Verified 07/24/22 11:16 Review of Systems ROS Statement: Those systems with pertinent positive or pertinent negative responses have been documented in the HPI. ROS Other: All systems not noted in ROS Statement are negative. Past Medical History Past Medical History: Diabetes Mellitus, GERD/Reflux, Hypertension, Thyroid Disorder Additional Past Medical History / Comment(s): nausea,pain lower back pain with walking and uterine wall thickening,NIDDM type II, hypothyroid, TRAVIS heel spurs, HX Vertigo, Obesity. SHORTNESS OF BREATH W/ LITTLE ACTIVITY, LOWER BACK PAIN, OCC PALPITATIONS. History of Any Multi-Drug Resistant Organisms: None Reported Past Surgical History: Section, Orthopedic Surgery, Tubal Ligation Additional Past Surgical History / Comment(s): Lymph node removal -benign from RT side base of neck, x4. RT INDEX FINGER. COLONOSCOPY,rt heel spur Past Anesthesia/Blood Transfusion Reactions: No Reported Reaction Additional Past Anesthesia/Blood Transfusion Reaction / Comment(s): Pt received blood in past without reaction. Past Psychological History: Anxiety Smoking Status: Never smoker Past Alcohol Use History: None Reported Past Drug Use History: None Reported - Past Family History Father Family Medical History: Myocardial Infarction ([place]) Additional Family Medical History / Comment(s): Father at the age of 36 yrs from a [place]. Pt believes the [place] was related to his illness with yellow jaundice. Mother Family Medical History: Cancer, Hypertension Additional Family Medical History / Comment(s): with CA at age 81 General Exam Limitations: no limitations General appearance: alert, in distress (resp mild) Head exam: Present: atraumatic, normocephalic Eye exam: Present: normal appearance, PERRL ENT exam: Present: normal exam Neck exam: Present: normal inspection. Absent: tenderness, meningismus Respiratory exam: Present: respiratory distress, rales, decreased breath sounds. Absent: wheezes Cardiovascular Exam: Present: regular rate, normal rhythm GI/Abdominal exam: Present: soft. Absent: distended, tenderness, guarding Extremities exam: Present: pedal edema. Absent: calf tenderness Neurological exam: Present: alert, oriented X3, CN II-XII intact. Absent: motor sensory deficit Skin exam: Present: warm, dry, intact. Absent: cyanosis, diaphoretic Course Vital Signs 07/24/22 07/24/22 07/24/22 10:05 10:18 11:05 Temperature 98.6 F Pulse Rate 62 53 L Pulse Rate [ 60 Manager Social Work ] Respiratory 20 18 Rate Blood Pressure 175/98 165/76 O2 Sat by Pulse 92 L 94 L Oximetry 07/24/22 12:38 Temperature 97.9 F Pulse Rate 57 L Pulse Rate [ Manager Social Work ] Respiratory 17 Rate Blood Pressure 158/86 O2 Sat by Pulse 93 L Oximetry EKG Findings - EKG Comments: EKG Findings:: EKG: Sinus bradycardia rate of 54, ME interval 146, QRS duration 142, QTC [address] segment elevation. - EKG Results: EKG: interpreted by ROJELIO Medical Decision Making - Medical Decision Making Was pt. sent in by a medical professional or institution ([facility], NECKTIE MAKER, urgent care, hospital, or correction...) When possible be specific @ -[Sent in by primary care physician Did you speak to anyone other than the patient for history (EMS, parent, family, police, friend...)? What history was obtained from this source @ -no Did you review nursing and triage notes (agree or disagree)? Why? @ -I reviewed and agree with nursing and triage notes Were old charts reviewed (outside hosp., previous admission, EMS record, old EKG, old radiological studies, urgent care reports/EKG's, correction records)? Report findings @ -No old charts were reviewed Differential Diagnosis (chest pain, altered mental status, abdominal pain women, abdominal pain men, vaginal bleeding, weakness, fever, dyspnea, syncope, headache, dizziness, GI bleed, back pain, seizure, CVA, palpatations, mental health, musculoskeletal)? @ -Differential Dyspnea: Coronary syndrome, arrhythmia, tamponade, asthma, COPD, pulmonary embolism, pneumonia, pneumothorax, pulmonary effusion, anaphylaxis, diabetic ketoacidosis, flailed chest, pulmonary contusion, diaphragmatic rupture, anemia, neuromuscular, this is not meant to be an all-inclusive list. EKG interpreted by me (3pts min.). @ -As above X-rays interpreted by me (1pt min.). @ -Chest x-ray showing mild pulmonary edema CT interpreted by me (1pt min.). @ -CT angiogram performed for pulmonary embolism, shows aneurysmal dilatation of the aorta without PE U/S interpreted by me (1pt. min.). @ -None done What testing was considered but not performed or refused? (CT, X-rays, U/S, labs)? Why? @ -None What meds were considered but not given or refused? Why? @ -None Did you discuss the management of the patient with other professionals (professionals i.e. [facility]BE[facility] Agee, NECKTIE MAKER, lab, RT, psych nurse, social services coordinator, toys and games hand finisher, teacher, surveillance sensor officer, case fitter)? Give summary @ -Case discussed with Dr. finch who will admit Was smoking cessation discussed for >3mins.? @ -No Was critical care preformed (if so, how long)? @ -No Were there social determinants of health that impacted care today? How? (Homelessness, low income, unemployed, alcoholism, drug addiction, transportation, low edu. Level, literacy, decrease access to med. care, long term, rehab)? @ -No Was there de-escalation of care discussed even if they declined (Discuss DNR or withdrawal of care, Hospice)? DNR status @ -No What co-morbidities impacted this encounter? (DM, HTN, Smoking, COPD, CAD, Cancer, CVA, ARF, Chemo, Hep., AIDS, mental health diagnosis, sleep apnea, morbid obesity)? @ -None Was patient admitted / discharged? Hospital course, mention meds given and route, prescriptions, significant lab abnormalities, going to OR and other pertinent info. @ -62-year-old female with progressive dyspnea and chest discomfort. Bilateral lower extremity edema. Chest x-ray concerning for pulmonary edema. Patient has a negative troponin negative BNP. CT angiogram was ordered for positive d- dimer in the setting of dyspnea. Patient will benefit from echo. We'll trial 1 dose of Lasix to see if symptoms improve. She'll be admitted with cardiology on consult. Undiagnosed new problem with uncertain prognosis? @ -No Drug Therapy requiring intensive monitoring for toxicity (Heparin, Nitro, Insulin, Cardizem)? @ -No Were any procedures done? @ -No Diagnosis/symptom? @ -Exertional dyspnea Acute, or Chronic, or Acute on Chronic? @ -acute Uncomplicated (without systemic symptoms) or Complicated (systemic symptoms)? @ -complicated Side effects of treatment? @ -No Exacerbation, Progression, or Severe Exacerbation? @ -No Poses a threat to life or bodily function? How? (Chest pain, [place], [place], pneumonia, PE, COPD, DKA, ARF, appy, cholecystitis, CVA, Diverticulitis, Homicidal, Suicidal, threat to staff... and all critical care pts) @ -No - Lab Data Result diagrams: 07/24/22 10:29 07/24/22 10:29 Lab Results 07/24/22 07/24/22 07/24/22 Range/Units 10:29 10:29 10: WBC 6.4 (3.8-10.6) k/uL RBC 4.30 (3.80-5.40) m/uL Hgb 12.7 (11.4-16.0) gm/dL Hct 38.2 (34.0-46.0) % MCV 88.8 (80.0-100.0) fL MCH 29.6 (25.0-35.0) pg MCHC 33.4 (31.0-37.0) g/dL RDW 14.4 (11.5-15.5) % Plt Count 235 (150-450) k/uL MPV 9.3 Neutrophils % 64 % Lymphocytes % 21 % Monocytes % 4 % Eosinophils % 8 % Basophils % 1 % Neutrophils # 4.1 (1.3-7.7) k/uL Lymphocytes # 1.4 (1.0-4.8) k/uL Monocytes # 0.3 (0-1.0) k/uL Eosinophils # 0.5 (0-0.7) k/uL Basophils # 0.1 (0-0.2) k/uL PT 10.2 (9.0-12.0) sec INR 1.0 (<1.2) APTT 23.0 (22.0-30.0) sec D-Dimer 0.62 H (<0.60) mg/L FEU Sodium 137 (137-145) mmol/L Potassium 4.8 (3.5-5.1) mmol/L Chloride 98 (98-107) mmol/L Carbon Dioxide 30 (22-30) mmol/L Anion Gap 9 mmol/L BUN 8 (7-17) mg/dL Creatinine 0.47 L (0.52-1.04) mg/dL Est GFR (CKD-EPI)AfAm >90 (>60 ml/min/1.73 sqM) Est GFR (CKD-EPI)NonAf >90 (>60 ml/min/1.73 sqM) Glucose 190 H (74-99) mg/dL Calcium 9.2 (8.4-10.2) mg/dL Magnesium 1.7 (1.6-2.3) mg/dL Total Bilirubin 0.7 (0.2-1.3) mg/dL AST 29 (14-36) U/L ALT 37 H (4-34) U/L Alkaline Phosphatase 87 (38-126) U/L Troponin I (0.000-0.034) ng/mL NT-Pro-B Natriuret Pep pg/mL Total Protein 7.0 (6.3-8.2) g/dL Albumin 4.2 (3.5-5.0) g/dL 07/24/22 07/24/22 Range/Units 10:29 10:29 WBC (3.8-10.6) k/uL RBC (3.80-5.40) m/uL Hgb (11.4-16.0) gm/dL Hct (34.0-46.0) % MCV (80.0-100.0) fL MCH (25.0-35.0) pg MCHC (31.0-37.0) g/dL RDW (11.5-15.5) % Plt Count (150-450) k/uL MPV Neutrophils % % Lymphocytes % % Monocytes % % Eosinophils % % Basophils % % Neutrophils # (1.3-7.7) k/uL Lymphocytes # (1.0-4.8) k/uL Monocytes # (0-1.0) k/uL Eosinophils # (0-0.7) k/uL Basophils # (0-0.2) k/uL PT (9.0-12.0) sec INR (<1.2) APTT (22.0-30.0) sec D-Dimer (<0.60) mg/L FEU Sodium (137-145) mmol/L Potassium (3.5-5.1) mmol/L Chloride (98-107) mmol/L Carbon Dioxide (22-30) mmol/L Anion Gap mmol/L BUN (7-17) mg/dL Creatinine (0.52-1.04) mg/dL Est GFR (CKD-EPI)AfAm (>60 ml/min/1.73 sqM) Est GFR (CKD-EPI)NonAf (>60 ml/min/1.73 sqM) Glucose (74-99) mg/dL Calcium (8.4-10.2) mg/dL Magnesium (1.6-2.3) mg/dL Total Bilirubin (0.2-1.3) mg/dL AST (14-36) U/L ALT (4-34) U/L Alkaline Phosphatase (38-126) U/L Troponin I <0.012 (0.000-0.034) ng/mL NT-Pro-B Natriuret Pep 104 pg/mL Total Protein (6.3-8.2) g/dL Albumin (3.5-5.0) g/dL Disposition Clinical Impression: Dyspnea, Chest pain Disposition: ADMITTED IP TO THIS HOSP Condition: Stable Is patient prescribed a controlled substance at d/c from ED?: No Referrals: Tello Leiva MD [Primary Care Provider] - 1-2 days Time of Disposition: 12:50
[2022-07-24 11:00] LABS: Prothrombin Time 10.2 sec (9.0-12.0)
[2022-07-24 11:05] LABS: ALT 37 U/L (4-34); AST 29 U/L (14-36); African American GFR (CKD) >90 (>60 ml/min/1.73 sqM); Albumin 4.2 g/dL (3.5-5.0); Alkaline Phosphatase 87 U/L (38-126); Anion Gap 9 mmol/L; Blood Urea Nitrogen 8 mg/dL (7-17); Calcium 9.2 mg/dL (8.4-10.2); Carbon Dioxide 30 mmol/L (22-30); Chloride 98 mmol/L (98-107); Glucose 190 mg/dL (74-99); Magnesium 1.7 mg/dL (1.6-2.3); Non-African American GFR(CKD) >90 (>60 ml/min/1.73 sqM); Potassium 4.8 mmol/L (3.5-5.1); Sodium 137 mmol/L (137-145); Total Bilirubin 0.7 mg/dL (0.2-1.3)
--- NOTE | 2022-07-24 12:26 | CT ---
EXAMINATION TYPE: CT angio chest CT DLP: 727.7 mGycm, Automated exposure control for dose reduction was used. DATE OF EXAM: 07/24/2022 12:17 PM COMPARISON: CTA chest 01/01/2023 CLINICAL INDICATION:Female, 62 years old with history of SJ; IB, hx HTN, aortic aneurysm w/out ruptu re-she's not sure on location TECHNIQUE/CONTRAST: CTA scan of the thorax is performed with IV Contrast, patient injected with 100 mL of Isovue 370, pul monary embolism protocol. MIP images are created and reviewed. FINDINGS: Pulmonary Artery: There is no evidence for a filling defect within the pulmonary vasculature to sugge st acute pulmonary embolism. The pulmonary artery is enlarged measuring 4.3 cm in diameter. Lungs/Pleura: No evidence of focal consolidation, pleural effusion or pneumothorax. Minimal right low er lobe subsegmental atelectasis. Scattered mosaic attenuation likely related to air trapping. Simila r slightly elevated right hemidiaphragm. Airway: Large airways are patent. Heart: Mildly enlarged. No pericardial effusion mild coronary artery calcifications. Vasculature: Stable ascending thoracic aortic aneurysm measuring up to 4.4 cm. Mediastinum: No gross evidence of adenopathy. Musculoskeletal: Mild degenerative disc disease changes are present throughout the thoracolumbar spin e. No acute osseous adenopathy. Soft Tissues: Unremarkable. Lower neck: No significant findings. Upper Abdomen: Diffuse low-attenuation to the liver parenchyma. Similar hepatomegaly. IMPRESSION: 1. No evidence of pulmonary embolism. 2. Stable ascending thoracic aortic aneurysm measuring up to 4.4 cm. 3. Similar dilatation of the main pulmonary artery which can be seen in the setting of pulmonary king rial hypertension. 4. Hepatic steatosis.
[2022-07-24] MEDS ORDERED: FUROSEMIDE 10 MG/ML 4 ML VIAL IV STA (12:39)
[2022-07-24] MEDS ORDERED: NALOXONE 0.4 MG/ML 1 ML VIAL IV PRN (12:44)
[2022-07-24] MEDS ORDERED: PROCHLORPERAZINE 10 MG TAB PO PRN (12:55)
[2022-07-24] MEDS ORDERED: ASPIRIN 325 MG TAB PO STA (13:41)
--- NOTE | 2022-07-24 13:45 | P.HPIM ---
History of Present Illness This is a pleasant 62 years old female with past medical history off Diabetes Mellitus, GERD, Hypertension, hypothyroidism, chronic back pain, vertigo, Patient presents because of worsening shortness of breath and chest pain about one week duration. Patient states that she has no symptoms for about 2 weeks but that was over the last week. Her symptoms comes and even with simple exertion or movement, even if she walks for short distance she started feeling something sitting on her chest and she felt short of breath, she has to stop and once she was her symptoms improved but since we'll be very tired and ready to come back again with movement. She is pain as chest tightness 8/10 in severity on admission, 7/10, nonradiating. She is diabetic on metformin at home. She ex- smoker. Also her father from heart attack at age 30 She also complained from discomfort in her upper abdomen, no dyspnea at rest, no complaints No vomiting diarrhea or abdominal tenderness, no urinary symptoms, no headache or dizziness, no weakness or numbness She denies alcohol or illicit drugs Patient is mildly bradycardic and mildly hypertensive She has unremarkable CBC, INR, BMP and liver enzymes. Troponin is negative less than 0.012. D-dimer mildly elevated at 0.61 and CTA of the chest showing no PE and stable ascending aortic aneurysm 4.4 cm with hepatic steatosis Chest x-ray possible early pulmonary edema ProBNP 304. An emergency room patient is a pleasant 60. Admitted with cardiology consult Review of Systems Review of systems CONSTITUTIONAL: No fever, no malaise, no fatigue. HEENT: No recent visual problems or hearing problems. Denied any sore throat. CARDIOVASCULAR: No orthopnea, PND, no palpitations, no syncope. PULMONARY: No shortness of breath, no cough, no hemoptysis. GASTROINTESTINAL: No diarrhea, no nausea, no vomiting, no abdominal pain. Normoactive bowel sounds. NEUROLOGICAL: No headaches, no weakness, no numbness. HEMATOLOGICAL: Denies any bleeding or petechiae. GENITOURINARY: Denies any burning micturition, frequency, or urgency. MUSCULOSKELETAL/RHEUMATOLOGICAL: Denies any joint pain, swelling, or any muscle pain. ENDOCRINE: Denies any polyuria or polydipsia. Past Medical History Past Medical History: Diabetes Mellitus, GERD/Reflux, Hypertension, Thyroid Disorder Additional Past Medical History / Comment(s): nausea,pain lower back pain with walking and uterine wall thickening,NIDDM type II, hypothyroid, TRAVIS heel spurs, HX Vertigo, Obesity. SHORTNESS OF BREATH W/ LITTLE ACTIVITY, LOWER BACK PAIN, OCC PALPITATIONS. History of Any Multi-Drug Resistant Organisms: None Reported Past Surgical History: Section, Orthopedic Surgery, Tubal Ligation Additional Past Surgical History / Comment(s): Lymph node removal -benign from RT side base of neck, x4. RT INDEX FINGER. COLONOSCOPY,rt heel spur Past Anesthesia/Blood Transfusion Reactions: No Reported Reaction Additional Past Anesthesia/Blood Transfusion Reaction / Comment(s): Pt received blood in past without reaction. Past Psychological History: Anxiety Smoking Status: Never smoker Past Alcohol Use History: None Reported Past Drug Use History: None Reported - Past Family History Father Family Medical History: Myocardial Infarction ([place]) Additional Family Medical History / Comment(s): Father at the age of 36 yrs from a [place]. Pt believes the [place] was related to his illness with yellow jaundice. Mother Family Medical History: Cancer, Hypertension Additional Family Medical History / Comment(s): with [place] at age 81 Medications and Allergies Home Medications Medication Instructions Recorded Confirmed Type Levothyroxine Sodium 175 mcg PO DAILY 02/19/16 07/24/22 History Metoprolol Tartrate [Lopressor] 25 mg PO BID 10/15/17 07/24/22 History Venlafaxine HCl [Effexor XR] 225 mg PO DAILY 10/15/17 07/24/22 History Celecoxib [CeleBREX] 200 mg PO DAILY 08/13/18 07/24/22 History Esomeprazole Magnesium [NexIUM] 40 mg PO DAILY 08/13/18 07/24/22 History Atorvastatin Calcium [Lipitor] 20 mg PO HS 01/18/19 07/24/22 History lisinopriL [Zestril] 5 mg PO DAILY 01/01/21 07/24/22 History metFORMIN HCL [Glucophage] 1,000 mg PO BID 01/01/21 07/24/22 History Prochlorperazine [Compazine] 10 mg PO Q6H PRN 07/24/22 07/24/22 History Allergies Allergy/AdvReac Type Severity Reaction Status Date / Time codeine Allergy Rash/Hives Verified 07/24/22 11:16 Physical Exam Vitals: Vital Signs Temp Pulse Pulse Resp BP Pulse Ox 07/24/22 12:38 97.9 F 57 L 17 158/86 93 L 07/24/22 11:05 53 L 18 165/76 94 L 07/24/22 10:18 60 07/24/22 10:05 98.6 F 62 20 175/98 92 L Intake and Output 07/23/22 07/24/22 07/24/22 22:59 06:59 14:59 Other: Weight 117.934 kg GENERAL: The patient is alert and oriented x3, not in any acute distress. morbidly obese HEENT: Pupils are round and equally reacting to light. EOMI. No scleral icterus. No conjunctival pallor. Normocephalic, atraumatic. No pharyngeal erythema. No thyromegaly. CARDIOVASCULAR: S1 and S2 present. No murmurs, rubs, or gallops. PULMONARY: Chest is clear to auscultation, no wheezing or crackles. ABDOMEN: Soft, nontender, nondistended, normoactive bowel sounds. No palpable organomegaly. MUSCULOSKELETAL: No joint swelling or deformity. EXTREMITIES: No cyanosis, clubbing, or pedal edema. NEUROLOGICAL: Gross neurological examination did not reveal any focal deficits. SKIN: No rashes. no petechiae. Results CBC & Chem 7: 07/24/22 10:29 07/24/22 10:29 Labs: Abnormal Lab Results - Last 24 Hours (Table) 07/24/22 07/24/22 Range/Units 10:29 10:29 D-Dimer 0.62 H (<0.60) mg/L FEU Creatinine 0.47 L (0.52-1.04) mg/dL Glucose 190 H (74-99) mg/dL ALT 37 H (4-34) U/L Assessment and Plan Assessment: Chest pain 2 1 week, gradually worsening, rule out cardiac causes, and review of her risk factors and strong family history Diabetes mellitus Hypertension History of GERD Hypothyroidism Chronic back pain History of vertigo Morbidly obese, BMI 42 Plan: Add aspirin 325 mgx 1 Cardiology consult to do serial troponin Hold METFORMIN since patient of contrast and continue with insulin sliding scale I discussed the case with cardiology team and can be they will come and evaluate her. Labs and medication were reviewed.. Continue same treatment. Continue with symptomatic treatment. Resume home medication. Monitor labs and vitals. DVT and GI prophylaxis. Further recommendations as per clinical course of the patient DVT prophylaxis: Subcutaneous heparin GI Prophylaxis: Pepcid PT/OT: Pending Prognosis is guarded
[2022-07-24] MEDS ORDERED: HEPARIN SODIUM 1,000 UN/ML (10ML VL) IV ONE (14:13)
[2022-07-24] MEDS ORDERED: HEPARIN SODIUM 1,000 UN/ML (10ML VL) IV PRN (14:13)
[2022-07-24] MEDS ORDERED: HEPARIN SOD,PORK IN 0.45% NACL 25,000 UNIT in 0.45% NACL 1 250ML.BAG IV SCH (14:15)
--- NOTE | 2022-07-24 14:23 | P.CRDCN ---
History of Present Illness Consult date: 07/24/22 History of present illness: HISTORY OF PRESENT ILLNESS: This is a 62-year-old female with a past medical history significant for hypertension, hyperlipidemia, diabetes, former nicotine dependence, and mild nonobstructive coronary artery disease. Patient follows in the office with Dr. Chapin. We have been asked to see the patient in consultation for chest pain. Patient examined at the bedside in the emergency room. Patient states she has been having chest pain on and off for the past week. She states the pain can occur at rest. However her pain increases significantly with exertion. She states that yesterday she was out to eat and she walked from the restaurant to her car and her chest pain increased to a 10 out of 10. She states the pain was in the middle of her chest. She denied any radiation of the pain. She reports feeling diaphoretic as well. She denied having any nausea or vomiting. She states after she sat in her car and rested for a while the pain subsided to a 4/10. She states she did not take anything at that time for the pain. This morning, she went to see her primary care physician who referred her to the [facility] room for further evaluation. The patient states she has a former cigarette smoker and quit smoking about 30 years ago. She does report that at that time she was a heavy smoker. She reports a family history of premature coronary artery disease and states her dad of a heart attack when he was in his 30s. At the time of my examination, the patient is resting comfortably. * EKG reveals sinus mechanism with no signs of acute ischemia * Chest xray prominence of bilateral central perihilar vasculature which could be seen in early pulmonary edema. * Laboratory data: WBC 6.4. Hemoglobin 12.7. Platelet count 235. D-dimer 0.62. Sodium 138. Potassium 4.8. BUN 8. Creatinine 0.47. Troponin negative 1. ProBNP 104. * Current home cardiac medications include metoprolol tartrate 25 mg twice a day, lisinopril 5 mg daily, atorvastatin 20 mg at night * Most recent echocardiogram obtained in February 2022 revealed normal ejection fraction, moderate AR, dilated aorta at 4.5 cm * Cardiac catheterization history: 2019 revealing 40-50% lesion of the RCA REVIEW OF SYSTEMS: At the time of my exam: CONSTITUTIONAL: Denies fever or chills. HEENT: Denies blurred vision, vision changes, or eye pain. Denies hemoptysis CARDIOVASCULAR: Denies chest pain. Denies orthopnea. Denies PND. Denies palpitations RESPIRATORY: Denies shortness of breath. GASTROINTESTINAL: Denies abdominal pain. Denies nausea or vomiting. HEMATOLOGIC: Denies bleeding disorders. GENITOURINARY: Denies any blood in urine. SKIN: Denies pruitis. Denies rash. PHYSICAL EXAM: VITAL SIGNS: Reviewed. GENERAL: Well-developed in no acute distress. HEENT: Head is normocephalic. Pupils are equal, round. Sclerae anicteric. Mucous membranes of the mouth are moist. Neck supple. No JVD or thyromegaly LUNGS: Respirations even and unlabored. Lungs essentially clear to auscultation bilaterally. HEART: Regular rate and rhythm. S1 and S2 heard. + diastolic murmur. ABDOMEN: Soft. Nondistended. Nontender. EXTREMITIES: Normal range of motion. No clubbing or cyanosis. Peripheral pulses intact. Trace lower extremity edema NEUROLOGIC: Awake and alert. Oriented x 3. ASSESSMENT: Chest pain and shortness of breath with exertion, concerning for unstable angina Nonobstructive coronary artery disease, per cardiac catheterization in 2019 Hypertension Hyperlipidemia Diabetes Morbid obesity Ascending thoracic aortic aneurysm, measuring 4.4 cm Moderate aortic regurgitation Former nicotine dependence Family history of premature coronary artery disease PLAN: Obtain 2-D echo to assess cardiac structure and function Begin IV heparin Begin Nitropaste 0.5mg Q8 hours Add aspirin 81 mg daily Increase atorvastatin to 40 mg at night Check lipid panel and hemoglobin A1c Nothing by mouth at midnight Patient to undergo cardiac catheterization tomorrow with Dr. Chapin Further recommendations pending patient's course Nurse practitioner note has been reviewed by physician. Signing provider agrees with the documented findings, assessment, and plan of care. Past Medical History Past Medical History: Diabetes Mellitus, GERD/Reflux, Hypertension, Thyroid Disorder Additional Past Medical History / Comment(s): nausea,pain lower back pain with walking and uterine wall thickening,NIDDM type II, hypothyroid, TRAVIS heel spurs, HX Vertigo, Obesity. SHORTNESS OF BREATH W/ LITTLE ACTIVITY, LOWER BACK PAIN, OCC PALPITATIONS. History of Any Multi-Drug Resistant Organisms: None Reported Past Surgical History: Section, Orthopedic Surgery, Tubal Ligation Additional Past Surgical History / Comment(s): Lymph node removal -benign from RT side base of neck, x4. RT INDEX FINGER. COLONOSCOPY,rt heel spur Past Anesthesia/Blood Transfusion Reactions: No Reported Reaction Additional Past Anesthesia/Blood Transfusion Reaction / Comment(s): Pt received blood in past without reaction. Past Psychological History: Anxiety Smoking Status: Never smoker Past Alcohol Use History: None Reported Past Drug Use History: None Reported - Past Family History Father Family Medical History: Myocardial Infarction (FL) Additional Family Medical History / Comment(s): Father at the age of 36 yrs from a [place]. Pt believes the [place] was related to his illness with yellow jaundice. Mother Family Medical History: Cancer, Hypertension Additional Family Medical History / Comment(s): with CA at age 81 Medications and Allergies Home Medications Medication Instructions Recorded Confirmed Type Levothyroxine Sodium 175 mcg PO DAILY 02/19/16 07/24/22 History Metoprolol Tartrate [Lopressor] 25 mg PO BID 10/15/17 07/24/22 History Venlafaxine HCl [Effexor XR] 225 mg PO DAILY 10/15/17 07/24/22 History Celecoxib [CeleBREX] 200 mg PO DAILY 08/13/18 07/24/22 History Esomeprazole Magnesium [NexIUM] 40 mg PO DAILY 08/13/18 07/24/22 History Atorvastatin Calcium [Lipitor] 20 mg PO HS 01/18/19 07/24/22 History lisinopriL [Zestril] 5 mg PO DAILY 01/01/21 07/24/22 History metFORMIN HCL [Glucophage] 1,000 mg PO BID 01/01/21 07/24/22 History Prochlorperazine [Compazine] 10 mg PO Q6H PRN 07/24/22 07/24/22 History Allergies Allergy/AdvReac Type Severity Reaction Status Date / Time codeine Allergy Rash/Hives Verified 07/24/22 11:16 Physical Exam Vitals: Vital Signs Temp Pulse Pulse Resp BP Pulse Ox 07/24/22 14:05 61 17 149/94 97 07/24/22 12:38 97.9 F 57 L 17 158/86 93 L 07/24/22 11:05 53 L 18 165/76 94 L 07/24/22 10:18 60 07/24/22 10:05 98.6 F 62 20 175/98 92 L Intake and Output 07/23/22 07/24/22 07/24/22 22:59 06:59 14:59 Other: Weight 117.934 kg Results 07/24/22 10:29 07/24/22 10:29 Cardiac Enzymes 07/24/22 07/24/22 Range/Units 10:29 10:29 AST 29 (14-36) U/L Troponin I <0.012 (0.000-0.034) ng/mL Coagulation 07/24/22 Range/Units 10:29 PT 10.2 (9.0-12.0) sec APTT 23.0 (22.0-30.0) sec CBC 07/24/22 Range/Units 10:29 WBC 6.4 (3.8-10.6) k/uL RBC 4.30 (3.80-5.40) m/uL Hgb 12.7 (11.4-16.0) gm/dL Hct 38.2 (34.0-46.0) % Plt Count 235 (150-450) k/uL Comprehensive Metabolic Panel 07/24/22 Range/Units 10:29 Sodium 137 (137-145) mmol/L Potassium 4.8 (3.5-5.1) mmol/L Chloride 98 (98-107) mmol/L Carbon Dioxide 30 (22-30) mmol/L BUN 8 (7-17) mg/dL Creatinine 0.47 L (0.52-1.04) mg/dL Glucose 190 H (74-99) mg/dL Calcium 9.2 (8.4-10.2) mg/dL AST 29 (14-36) U/L ALT 37 H (4-34) U/L Alkaline Phosphatase 87 (38-126) U/L Total Protein 7.0 (6.3-8.2) g/dL Albumin 4.2 (3.5-5.0) g/dL Current Medications Generic Name Dose Route Start Last Admin Trade Name Freq PRN Reason Stop Dose Admin Acetaminophen 650 mg 07/24/22 12:44 Acetaminophen Tab 325 Mg Tab PO Q6HR PRN Mild Pain or Fever > 100.5 Atorvastatin Calcium 20 mg 07/24/22 21:00 Atorvastatin 20 Mg Tab PO HS RAMU Famotidine 20 mg 07/24/22 21:00 Famotidine 20 Mg/2 Ml Vial IV Q12HR [facility] Heparin Sodium (Porcine) 5,000 unit 07/24/22 16:00 Heparin Sodium,Porcine/Pf 5,000 Unit/0.5 Ml Syringe SQ Q8HR [facility] Levothyroxine Sodium 176 mcg 07/25/22 06:30 Levothyroxine 88 Mcg Tab PO DAILY@0630 [facility] Lisinopril 5 mg 07/25/22 09:00 Lisinopril 5 Mg Tab PO DAILY [facility] Metoprolol Tartrate 25 mg 07/24/22 21:00 Metoprolol Tartrate 25 Mg Tab PO BID [facility] Naloxone HCl 0.2 mg 07/24/22 12:44 Naloxone 0.4 Mg/Ml 1 Ml Vial IV Q2M PRN Opioid Reversal Prochlorperazine Maleate 10 mg 07/24/22 12:55 Prochlorperazine 10 Mg Tab PO Q6H PRN Nausea And Vomiting Venlafaxine HCl 225 mg 07/25/22 09:00 Venlafaxine Hcl Er 75 Mg Cap PO DAILY [facility] Intake and Output 07/23/22 07/24/22 07/24/22 22:59 06:59 14:59 Other: Weight 117.934 kg Patient Weight 07/25/22 06:59 Weight 117.934 kg 07/24/22 10:29 07/24/22 10:29
[2022-07-24] MEDS ORDERED: NITROGLYCERIN SL TABS 0.4 MG TAB SUBLINGUAL PRN (14:24)
[2022-07-24] MEDS ORDERED: ALPRAZolam 0.25 MG TAB PO PRN (14:24)
[2022-07-24] MEDS ORDERED: HEPARIN SODIUM,PORCINE/PF 5,000 UNIT/0.5 ML SYRINGE SQ SCH (16:00)
[2022-07-24] MEDS: amLODIPine 5 MG TAB PO SCH (16:15)
[2022-07-24] MEDS: NITROGLYCERIN OINT 1 INCH/GM PACKET TOPICAL SCH ×2 (16:15→23:14)
[2022-07-24 16:25] LABS: Glucose,Whole Blood 124 mg/dL (70-110)
[2022-07-24 20:13] LABS: Glucose,Whole Blood 117 mg/dL (70-110)
[2022-07-24] MEDS: METOPROLOL TARTRATE 25 MG TAB PO SCH (20:21)
[2022-07-24] MEDS: FAMOTIDINE 20 MG/2 ML VIAL IV SCH (20:21)
[2022-07-24] MEDS: SODIUM CHLORIDE 0.9% 1,000 ML in EMPTY BAG 1 BAG IV SCH (20:22)
[2022-07-24] MEDS: ACETAMINOPHEN TAB 325 MG TAB PO PRN (20:24)
[2022-07-24] MEDS ORDERED: ATORVASTATIN 40 MG TAB PO SCH (21:00)
[2022-07-24] MEDS ORDERED: ATORVASTATIN 20 MG TAB PO SCH (21:00)
[2022-07-25] MEDS: ALPRAZolam 0.5 MG TAB PO PRN ×2 (00:39→06:18)
[2022-07-25] MEDS: ACETAMINOPHEN TAB 325 MG TAB PO PRN (02:00)
[2022-07-25 04:16] LABS: Basophils # (A) 0.1 k/uL (0-0.2); Basophils % (A) 1 %; Eosinophils # (A) 0.5 k/uL (0-0.7); Eosinophils % (A) 7 %; HCT 36.1 % (34.0-46.0); HGB 12.2 gm/dL (11.4-16.0); Lymphocytes # (A) 1.4 k/uL (1.0-4.8); Lymphocytes % (A) 19 %; MCH 30.2 pg (25.0-35.0); MCHC 33.8 g/dL (31.0-37.0); MCV 89.2 fL (80.0-100.0); Mean Platelet Volume 8.9; Monocytes # (A) 0.3 k/uL (0-1.0); Monocytes % (A) 4 %; Neutrophils % (A) 67 %; Platelet Count 243 k/uL (150-450); RBC 4.05 m/uL (3.80-5.40); RDW 14.5 % (11.5-15.5); WBC 7.4 k/uL (3.8-10.6)
[2022-07-25 04:38] LABS: Partial Thromboplastin Time 25.5 sec (22.0-30.0); Prothrombin Time 10.3 sec (9.0-12.0)
[2022-07-25] MEDS ORDERED: ASPIRIN 325 MG TAB PO ONE (05:00)
[2022-07-25] MEDS ORDERED: ATORVASTATIN 80 MG TAB PO ONE (05:00)
[2022-07-25] MEDS: FAMOTIDINE 20 MG/2 ML VIAL IV SCH (05:47)
[2022-07-25] MEDS: SODIUM CHLORIDE 0.9% 1,000 ML in EMPTY BAG 1 BAG IV SCH (05:48)
[2022-07-25] MEDS: NITROGLYCERIN OINT 1 INCH/GM PACKET TOPICAL SCH (05:48)
[2022-07-25] MEDS: METOPROLOL TARTRATE 25 MG TAB PO SCH (05:48)
[2022-07-25] MEDS: amLODIPine 5 MG TAB PO SCH (05:49)
[2022-07-25 06:23] LABS: Glucose,Whole Blood 224 mg/dL (70-110)
[2022-07-25] MEDS ORDERED: LEVOTHYROXINE 88 MCG TAB PO SCH (06:30)
[2022-07-25] MEDS ORDERED: HEPARIN SODIUM,PORCINE 10,000 UNIT in SODIUM CHLORIDE 0.9% 1,000 ML IRRIGATION PRN (07:00)
[2022-07-25] MEDS ORDERED: HEPARIN SODIUM,PORCINE 2,500 UNIT in SODIUM CHLORIDE 0.9% 250 ML IRRIGATION PRN (07:00)
[2022-07-25 08:58] LABS: HDL Cholesterol 29.5 mg/dL (40.00-60.00)
[2022-07-25] MEDS ORDERED: lisinopriL 5 MG TAB PO SCH (09:00)
[2022-07-25] MEDS ORDERED: ASPIRIN 81 MG PO SCH (09:00)
[2022-07-25] MEDS ORDERED: VENLAFAXINE HCL ER 75 MG CAP PO SCH (09:00)
[2022-07-25 09:13] LABS: Chol/HDL Ratio 6.61 Ratio
[2022-07-25 11:46] LABS: Glucose,Whole Blood 149 mg/dL (70-110)
--- NOTE | 2022-07-25 11:54 | CA ---
Transthoracic Echo Report Name: Evangelina Correa Age: 62 Gender: F : 1960 Exam Date: 07/24/2022 15:01 Exam Location: [place] [facility] Ht (in): 66 Wt (lb): 260 Ordering Physician: Ad Cary MD Attending/Referring Phys: [id number], Luis Daniel Moose Hunter Ly Marley RDCS Procedure CPT: Indications: SJ Cardiac Hx: Technical Quality: Fair Contrast 1: Total Dose (mL): Contrast 2: Total Dose (mL): MEASUREMENTS (Male / Female) Normal Values 2D ECHO LV Diastolic Diameter PLAX 4.9 cm 4.2 - 5.9 / 3.9 - 5.3 cm LV Systolic Diameter PLAX 3.5 cm IVS Diastolic Thickness 1.5 cm 0.6 - 1.0 / 0.6 - 0.9 cm LVPW Diastolic Thickness 1.6 cm 0.6 - 1.0 / 0.6 - 0.9 cm LV Relative Wall Thickness 0.6 RV Internal Dim ED PLAX 3.8 cm LVOT Diameter 2.5 cm LA Volume 68.4 cm??? 18 - 58 / 22 - 52 cm??? M-MODE Aortic Root Diameter MM 3.6 cm AV Cusp Separation MM 1.6 cm DOPPLER AV Peak Velocity 185.0 cm/s AV Peak Gradient 13.7 mmHg AV Mean Velocity 120.8 cm/s AV Mean Gradient 6.7 mmHg AV Velocity Time Integral 38.9 cm AI Peak Velocity 419.9 cm/s AI Peak Gradient 70.5 mmHg AI Pressure Half Time 982.5 ms LVOT Peak Velocity 111.7 cm/s LVOT Peak Gradient 5.0 mmHg AV Area Cont Eq pk 3.0 cm??? MV Area PHT 3.2 cm??? Mitral E Point Velocity 76.7 cm/s Mitral A Point Velocity 119.3 cm/s Mitral E to A Ratio 0.6 MV Deceleration Time 235.8 ms PV Peak Velocity 96.9 cm/s PV Peak Gradient 3.8 mmHg FINDINGS Left Ventricle Moderately increased septal wall thickness. Moderately increased posterior wall thickness. Left ventricular cavity size normal. Grade 1 diastolic dysfunction. Left ventricular ejection fraction is estimated at 55 %. Right Ventricle Normal right ventricular size. Right ventricular systolic pressure within normal limits. Right Atrium Normal right atrial size. Aneurysmal interatrial septum. Cannot rule out right to left shunt. Left Atrium Moderately increased left atrial volume. Mitral Valve Structurally normal mitral valve. [id number] mitral regurgitation. Aortic Valve Trileaflet aortic valve. Sclerotic non-cusp. Mild aortic regurgitation. No aortic stenosis. Tricuspid Valve Structurally normal tricuspid valve. No tricuspid regurgitation. Pulmonic Valve No pulmonic regurgitation. Pericardium Echo free space anterior to the right ventricle likely represents a fat pad. No pericardial or pleural effusion. Aorta Ascending aortic aneurysm measuring 4.4 cm. CONCLUSIONS Technically difficult study for interpretation Below normal LV systolic function was EF around 50%. Diastolic dysfunction with a grade 1 [id number] mitral regurgitation Aortic sclerosis with mild aortic insufficiency Ascending aortic aneurysm at 4.4 cm Comment execute atrial septal defect Previewed by: Dr. Chris Chapin MD (Electronically Signed) Final Date: 25 July 2022 11:53
[2022-07-25] MEDS ORDERED: IV FLUID CONTINUATION 400 ML IV ONE (12:20)
[2022-07-25] MEDS ORDERED: LIDOCAINE 1% INJ 10MG/ML (20 ML MDV) SQ ONE (12:53)
[2022-07-25] MEDS ORDERED: MIDAZOLAM 2 MG/2 ML VIAL IV ONE (12:53)
[2022-07-25] MEDS ORDERED: VERAPAMIL SYRINGE (5 MG/10 ML) INTRAARTER ONE (12:55)
[2022-07-25] MEDS ORDERED: HEPARIN SODIUM 1,000 UN/ML (10ML VL) IV ONE (12:57)
[2022-07-25] MEDS ORDERED: IOPAMIDOL-370 125ML BTL INJ ONE (13:04)
[2022-07-25] MEDS ORDERED: RX INFO: IV CONTRAST WAS GIVEN 1 EACH MISC MISCELLANE PRN (13:06)
--- NOTE | 2022-07-25 13:09 | P.PCN ---
Date of Procedure: 07/25/22 Operative Findings: CARDIAC CATHETERIZATION PERFORMING PHYSICIAN: Chris Chapin MD, RPVI PROCEDURE PERFORMED: 1. Selective right and left coronary angiogram INDICATION: Chest discomfort concerning for unstable angina COMPLICATION: None APPROACH: Right radial artery LEVEL OF SEDATION: Moderate with a sedation length of then minutes PROCEDURE DESCRIPTION: After obtaining an informed consent, the patient was brought to cardiac r and d lab technician. Local anesthesia was performed using lidocaine subcutaneously. The right radial artery was cannulated using Seldinger technique, the guidewire passed easily, following that we advanced a 5-[place]ic sheath dilator assembly, the wire and dilator were removed and sheath was flushed. Following that, 2 mg of verapamil along with 5000 unit heparin were given. Selective right and left coronary angiogram using a 6-Greenlandic JR4 and JL 3.5 catheters. The procedure was completed there was no complication. SELECTIVE CORONARY ANGIOGRAM: The right coronary artery: Large-caliber vessel and a dominant vessel. The RCA in the midportion appears to have intermediate lesion appeared to be in the range of 50% has not changed significantly compared to before Left main: Large caliber vessel was mild disease only. The left circumflex: Large-caliber vessel. The LCx gives rises into an OM1 and OM 2. OM 2 has mild disease by its ostium. The left anterior descending artery: Large-caliber vessel was mild disease only. Gives rises into a diagonal branch which appeared to be normal. CONCLUSION: 1. Intermediate disease involving the mid RCA appeared to be in the range of 60% and change compared to before 2. Mild disease involving the left coronary system POSTPROCEDURE MANAGEMENT: Consider medical treatment at this point and consider FFR of the RCA if the patient remains symptomatic
[2022-07-25] MEDS ORDERED: SODIUM CHLORIDE 0.9% 1,000 ML IV SCH (13:15)
[2022-07-25 16:53] LABS: Glucose,Whole Blood 140 mg/dL (70-110)
[2022-07-25 19:03] VITALS: RESP 16; TEMP 98
[2022-07-25 19:07] VITALS: BP 139/66; PULSE 56
[2022-07-25] MEDS ORDERED: FAMOTIDINE 20 MG TAB PO SCH (21:00)
--- NOTE | 2022-07-27 18:09 | P.DS ---
Providers Date of admission: 07/24/22 12:45 Expected date of discharge: 07/25/22 Attending physician: Paul Elias MD Consults: 07/24/22 12:44 Consult Physician Routine Consulting Provider: Chris Chapin Consult Reason/Comments: SJ Do you want consulting provider notified?: Yes Primary care physician: Tello Leiva Hospital Course: Final diagnosis Chest pain 2 1 week, gradually worsening, ruled out ACS Diabetes mellitus Hypertension History of GERD Hypothyroidism Chronic back pain History of vertigo Morbidly obese, BMI 42 Discharge disposition Patient is being discharged in a stable condition with guarded prognosis to home. Patient will follow-up with Dr. Leiva in the outpatient setting upon discharge. Patient is to follow-up with cardiology and GI outpatient as scheduled. Total time taken is greater than 35 minutes. Hospital course This is a 62-year-old male who was recently admitted with shortness of breath and chest pain and evaluated by cardiology. Patient underwent cardiac catheterization and was clean and cleared by cardiology for outpatient follow- up. Patient will continue on current medication regimen as mentioned below. Please refer to cardiology no for further HPI. Patient reports feeling well and would like to go home today. Currently no reports of chest pain, shortness of breath, or palpitations. Patient is afebrile. No reports of nausea or vomiting and patient is tolerating diet. Patient will be discharged home today. Guarded prognosis. Physical exam: Gen: This is a 62-year-old female who is awake, alert and oriented 3, well- developed, well-nourished, morbidly obese HEENT: Head is atraumatic, normocephalic. Pupils equal, round. Sclerae is anicteric. NECK: Supple. No JVD. No lymphadenopathy. No thyromegaly. LUNGS: Clear to auscultation. No wheezes or rhonchi. No intercostal retractions. HEART: Regular rate and rhythm. No murmur. ABDOMEN: Soft. Bowel sounds are present. No masses. No tenderness. EXTREMITIES: No pedal edema. No calf tenderness. NEUROLOGICAL: Patient is awake, alert and oriented x3. Cranial nerves 2 through 12 are grossly intact. Please refer to medication reconciliation sheet for a list of medications. The impression and plan of care has been dictated by Marie Dinero, Nurse Practitioner as directed. Dr. Bhargav MD I have performed a history and examination and MDM of this patient, discussed the same with the dictator, and agree with the dictator's assessment and plan as written ,documented as a scribe. Based on total visit time, I have performed more than 50% of the visit. Patient Condition at Discharge: Stable Plan - Discharge Summary Discharge Rx Participant: Yes New Discharge Prescriptions: New Aspirin 81 mg PO DAILY #30 tab Nitroglycerin Sl Tabs [Nitrostat] 0.4 mg SUBLINGUAL Q5M PRN #30 tab PRN Reason: Chest Pain amLODIPine [Norvasc] 5 mg PO DAILY #30 tab Acetaminophen Tab [Tylenol] 650 mg PO Q6HR PRN tab PRN Reason: Mild Pain Or Fever > 100.5 Pantoprazole Sodium [Protonix] 40 mg PO DAILY #30 tab Continue Levothyroxine Sodium 175 mcg PO DAILY Metoprolol Tartrate [Lopressor] 25 mg PO BID Venlafaxine HCl [Effexor XR] 225 mg PO DAILY Celecoxib [CeleBREX] 200 mg PO DAILY Esomeprazole Magnesium [NexIUM] 40 mg PO DAILY Atorvastatin Calcium [Lipitor] 20 mg PO HS lisinopriL [Zestril] 5 mg PO DAILY metFORMIN HCL [Glucophage] 1,000 mg PO BID Prochlorperazine [Compazine] 10 mg PO Q6H PRN PRN Reason: Nausea And Vomiting Discharge Medication List Levothyroxine Sodium 175 mcg PO DAILY 02/19/16 [History] Metoprolol Tartrate [Lopressor] 25 mg PO BID 10/15/17 [History] Venlafaxine HCl [Effexor XR] 225 mg PO DAILY 10/15/17 [History] Celecoxib [CeleBREX] 200 mg PO DAILY 08/13/18 [History] Esomeprazole Magnesium [NexIUM] 40 mg PO DAILY 08/13/18 [History] Atorvastatin Calcium [Lipitor] 20 mg PO HS 01/18/19 [History] lisinopriL [Zestril] 5 mg PO DAILY 01/01/21 [History] metFORMIN HCL [Glucophage] 1,000 mg PO BID 01/01/21 [History] Prochlorperazine [Compazine] 10 mg PO Q6H PRN 07/24/22 [History] Acetaminophen Tab [Tylenol] 650 mg PO Q6HR PRN tab 07/25/22 [Rx] Aspirin 81 mg PO DAILY #30 tab 07/25/22 [Rx] Nitroglycerin Sl Tabs [Nitrostat] 0.4 mg SUBLINGUAL Q5M PRN #30 tab 07/25/22 [Rx] Pantoprazole Sodium [Protonix] 40 mg PO DAILY #30 tab 07/25/22 [Rx] amLODIPine [Norvasc] 5 mg PO DAILY #30 tab 07/25/22 [Rx] Follow up Appointment(s)/Referral(s): Tello Leiva MD [Primary Care Provider] - 07/30/22 10:20 am Chris Chapin MD [Family Provider] - 07/30/22 4:15 pm Taylor Haddad MD [STAFF PHYSICIAN] - 1 Week Patient Instructions/Handouts: Heart Catheterization (DC) Activity/Diet/Wound Care/Special Instructions: Activity Limited until follow-up Follow-up with primary care provider on discharge follow-up with cardiology outpatient Continue taking medications as prescribed Discharge Disposition: HOME SELF-CARE
== END 2022-07-25 20:27 | disposition home or self-care (01) | DRG 287 ==
LOC: EC 10:05 → 3SCARD 12:45
PROVIDERS: ADMIT Internal Medicine; ATTEND Internal Medicine
PROC: B2111ZZ Fluoroscopy of Multiple Coronary Arteries using Low Osmolar Contrast (ICD-10-PCS; 2022-07-25)
PROC: 4A023N7 Measurement of Cardiac Sampling and Pressure, Left Heart, Percutaneous Approach (ICD-10-PCS; principal; 2022-07-25 07:30)
DX: I25.110 Atherosclerotic heart disease of native coronary artery with unstable angina pectoris (principal); Z68.41 Body mass index [BMI] 40.0-44.9, adult; I71.20 Thoracic aortic aneurysm, without rupture, unspecified; E03.9 Hypothyroidism, unspecified; I10 Essential (primary) hypertension; E66.01 Morbid (severe) obesity due to excess calories; I08.0 Rheumatic disorders of both mitral and aortic valves; R60.0 Localized edema; M79.89 Other specified soft tissue disorders; E78.5 Hyperlipidemia, unspecified; K21.9 Gastro-esophageal reflux disease without esophagitis; M54.9 Dorsalgia, unspecified; G89.29 Other chronic pain; Z88.5 Allergy status to narcotic agent; Z79.84 Long term (current) use of oral hypoglycemic drugs; Z79.899 Other long term (current) drug therapy; Z79.890 Hormone replacement therapy; Z79.1 Long term (current) use of non-steroidal anti-inflammatories (NSAID); Z87.891 Personal history of nicotine dependence; Z82.49 Family history of ischemic heart disease and other diseases of the circulatory system; Z79.4 Long term (current) use of insulin
CPT/HCPCS: 36415; 71046; 71275; 80053; 80061; 83036; 83721; 83735; 83880; 84484; 85025; 85379; 85610; 85730; 93005; 93306; 93454; 94760; 96374; 96375; 99285

== ENCOUNTER 2022-08-01 06:43 | Day surgery (SDC) | payer BC ==
[2022-07-30 15:33] VITALS: BMI 41.8
[~2022-08-01 06:43] MED LIST changes: -DEXAMETHASONE SOD PHOSPHATE 10 MG/ML 1 ML VIAL IV ONE; -HYDROmorphone 0.5 MG/0.5 ML SYRINGE IVP PRN; +LACTATED RINGERS 1,000 ML IV SCH; +LIDOCAINE 1% (10MG/ML) FOR IV START INTRADERMA PRN; -LIDOCAINE 1% 20 ML VIAL (10MG/ML) FOR IV START INTRADERMA PRN; -MIDAZOLAM 2 MG/2 ML VIAL IV PRN; -ONDANSETRON 4 MG/2 ML VIAL IVP ONE; -Pre Op ABX Message 1 EACH MISC MISCELLANE ONE; -SCOPOLAMINE 1.5MG/72HR PATCH TRANSDERM ONE
[2022-08-01] MEDS ORDERED: ONDANSETRON 4 MG/2 ML VIAL IVP PRN (07:00)
[2022-08-01 07:11] VITALS: TEMP 97.9
[2022-08-01 07:25] LABS: Glucose,Whole Blood 156 mg/dL (70-110)
[2022-08-01] MEDS ORDERED: LIDOCAINE 2% INJ 20 MG/ML (2 ML VIAL) ONE (08:23)
[2022-08-01] MEDS ORDERED: PROPOFOL 10 MG/ML 20 ML VIAL IV ONE (08:23)
--- NOTE | 2022-08-01 08:42 | P.PCN ---
Date of Procedure: 08/01/22 Procedure(s) Performed: BRIEF HISTORY: Patient is a 62-year-old, pleasant, white female scheduled for an upper endoscopy as a part of evaluation of epigastric pain, epigastric bloating and intermittent dysphagia to solids for the last several months duration. Presently on Protonix 40 mg daily with no help.. PROCEDURE PERFORMED: Esophagogastroduodenoscopy with biopsy. PREOPERATIVE DIAGNOSIS: Epigastric pain and intermittent dysphagia to solids. IV sedation per anesthesia. PROCEDURE: After informed consent was obtained, the patient was brought into the endoscopy unit. IV sedation was administered by Anesthesia under continuous monitoring. Initially the Olympus GIF-140 video endoscope was inserted into the mouth. Esophagus intubated without any difficulty. It was gradually advanced into the stomach and duodenum and carefully examined. The bulb and the second part of the duodenum had duodenitis, decreased duodenal folds and some patchy appearing atrophic mucosa suspicious for celiac disease status post multiple biopsies. The scope at this time was withdrawn to the stomach, adequately i nsufflated with air, and upon careful examination, mucosa of the antrum had diffuse gastritis and a 1 cm polyp that was biopsied. Mucosa of the, body, cardia and the fundus appeared normal. The scope was then withdrawn into the esophagus. The GE junction was located at 39 cm from the incisors. Distal esophageal Schatzki's ring noted that was dilated using 18-20 mm TTS balloon for 30 seconds. The rest of the esophagus appeared normal. There were no erosions or ulcerations seen, biopsies were done from the distal esophagus and the patient tolerated the procedure well. IMPRESSION: 1. Distal esophageal Schatzki's ring status post balloon dilation using 18-20 mm TTS balloon as described above. 2. Years antral gastritis and 1 cm antral polyp status post multiple biopsies 3. Duodenitis and paucity of the duodenal folds with patchy appearing mucosal atrophy status post multiple biopsies to rule out celiac disease. RECOMMENDATIONS: The findings of this examination were discussed with the patient as well as a family. She was advised to follow with the biopsy results.. Into the Protonix 40 mg daily and follow antireflux measures. Follow up in office in 3-4 weeks
[2022-08-01 09:00] VITALS: RESP 16
[2022-08-01 09:06] VITALS: BP 106/68; PULSE 58
== END 2022-08-01 09:29 | disposition home or self-care (01) ==
LOC: ORWHC2ENDO 06:43
PROVIDERS: ATTEND Internal Medicine Gastroenterology
DX: K29.90 Gastroduodenitis, unspecified, without bleeding (principal); K31.7 Polyp of stomach and duodenum; K22.2 Esophageal obstruction; K31.89 Other diseases of stomach and duodenum; Z79.899 Other long term (current) drug therapy
CPT/HCPCS: 43249; 43239; 88305; J2704; J2001; C1726; 43244

== ENCOUNTER → 2022-08-12 | Outpatient (CLI) | payer BC ==
[2022-08-12 20:24] LABS: Gliadin AB IgA, Deaminated POSITIVE (NEGATIVE); Gliadin AB IgA, Unit 87.3 U/mL; Gliadin AB IgG, Deaminated NEGATIVE (NEGATIVE); Gliadin AB IgG, Unit 7.1 U/mL
== END | disposition home or self-care (01) ==
LOC: LABWHC1 08:57
PROVIDERS: ATTEND Internal Medicine Gastroenterology
DX: R76.8 Other specified abnormal immunological findings in serum (principal)
CPT/HCPCS: 36415; 83516

== ENCOUNTER 2022-08-23 13:51 | Emergency (ER) | payer BC ==
[2022-08-23 14:12] VITALS: RESP 18
--- NOTE | 2022-08-23 14:17 | ED ---
Neuro HPI - General Chief Complaint: Neuro Symptoms/Deficit Stated Complaint: Numbness L side of face Time Seen by Provider: 08/23/22 13:58 Source: patient, RN notes reviewed Mode of arrival: ambulatory Limitations: no limitations - History of Present Illness Is the patient presenting with stroke symptoms?: No Initial Comments: 62-year-old female history type 2 diabetes aortic aneurysm heart disease hypertension who states she had the onset around 12 noon today of some left facial numbness and drooping per her . She was at a birthday republican for a grandchild. She denies any fevers chills nausea vomiting sweats no outpatient is no pain no blurry vision no weakness to her upper or lower extremities. No prior history of stroke TIA or Lam's palsy. The current complaints or modifying factors - Related Data Home Medications: Home Medications Medication Instructions Recorded Confirmed Levothyroxine Sodium 175 mcg PO DAILY 02/19/16 08/23/22 Metoprolol Tartrate [Lopressor] 25 mg PO BID 10/15/17 08/23/22 Venlafaxine HCl [Effexor XR] 225 mg PO DAILY 10/15/17 08/23/22 Celecoxib [CeleBREX] 200 mg PO DAILY 08/13/18 08/23/22 Esomeprazole Magnesium [NexIUM] 40 mg PO DAILY 08/13/18 08/23/22 Atorvastatin Calcium [Lipitor] 20 mg PO HS 01/18/19 08/23/22 lisinopriL [Zestril] 5 mg PO DAILY 01/01/21 08/23/22 metFORMIN HCL [Glucophage] 1,000 mg PO BID 01/01/21 08/23/22 Prochlorperazine [Compazine] 10 mg PO Q6H PRN 07/24/22 08/23/22 Empagliflozin [Jardiance] 25 mg PO DAILY 08/23/22 08/23/22 Previous Rx's Medication Instructions Recorded Acetaminophen Tab [Tylenol] 650 mg PO Q6HR PRN tab 07/25/22 Aspirin 81 mg PO DAILY #30 tab 07/25/22 Nitroglycerin Sl Tabs [Nitrostat] 0.4 mg SUBLINGUAL Q5M PRN #30 tab 07/25/22 Pantoprazole Sodium [Protonix] 40 mg PO DAILY #30 tab 07/25/22 amLODIPine [Norvasc] 5 mg PO DAILY #30 tab 07/25/22 predniSONE [Deltasone] 40 mg PO BID #14 tab 08/23/22 valACYclovir HCL [Valacyclovir] 1,000 mg PO TID #21 tab 08/23/22 Allergies/Adverse Reactions: Allergies Allergy/AdvReac Type Severity Reaction Status Date / Time codeine Allergy Rash/Hives Verified 08/23/22 14:39 Review of Systems ROS Statement: Those systems with pertinent positive or pertinent negative responses have been documented in the HPI. ROS Other: All systems not noted in ROS Statement are negative. General Exam - General Exam Comments Initial Comments: This is a well-developed well-nourished awake alert oriented 4 female Limitations: no limitations General appearance: alert, anxious Head exam: Present: atraumatic, normocephalic, normal inspection Eye exam: Present: PERRL, EOMI. Absent: scleral icterus, conjunctival injectio n, periorbital swelling Pupils: Present: normal accommodation ENT exam: Present: mucous membranes moist, other (Evidence a left facial asymmetry with the leg on the left some flattening of the nasolabial fold in for head markings.) Neck exam: Present: normal inspection, full ROM, other (No stridor JVD or bruits). Absent: tenderness, meningismus, lymphadenopathy Respiratory exam: Present: normal lung sounds bilaterally. Absent: respiratory distress, wheezes, rales, rhonchi, stridor Cardiovascular Exam: Present: regular rate, normal rhythm, normal heart sounds. Absent: systolic murmur, diastolic murmur, rubs, gallop, clicks GI/Abdominal exam: Present: soft, normal bowel sounds. Absent: distended, tenderness, guarding, rebound, rigid Extremities exam: Present: normal inspection, full ROM, normal capillary refill. Absent: tenderness, pedal edema, joint swelling, calf tenderness Back exam: Present: normal inspection Neurological exam: Present: alert, oriented X3, other (Evidence of seventh nerve palsy) Psychiatric exam: Present: normal affect, normal mood Skin exam: Present: warm, dry, intact, normal color. Absent: rash Stroke MDM - Lab Data Result diagrams: 08/23/22 14:08 08/23/22 14:08 Lab Results 08/23/22 08/23/22 08/23/22 Range/Units 14:08 14:08 14:08 WBC 8.6 (3.8-10.6) k/uL RBC 4.75 (3.80-5.40) m/uL Hgb 14.4 (11.4-16.0) gm/dL Hct 43.2 (34.0-46.0) % MCV 91.0 (80.0-100.0) fL MCH 30.4 (25.0-35.0) pg MCHC 33.4 (31.0-37.0) g/dL RDW 13.7 (11.5-15.5) % Plt Count 275 (150-450) k/uL MPV 9.8 Neutrophils % 64 % Lymphocytes % 25 % Monocytes % 4 % Eosinophils % 4 % Basophils % 1 % Neutrophils # 5.4 (1.3-7.7) k/uL Lymphocytes # 2.2 (1.0-4.8) k/uL Monocytes # 0.4 (0-1.0) k/uL Eosinophils # 0.4 (0-0.7) k/uL Basophils # 0.1 (0-0.2) k/uL PT 10.3 (9.0-12.0) sec INR 1.0 (<1.2) APTT 22.1 (22.0-30.0) sec Sodium 139 (137-145) mmol/L Potassium 4.7 (3.5-5.1) mmol/L Chloride 101 (98-107) mmol/L Carbon Dioxide 26 (22-30) mmol/L Anion Gap 12 mmol/L BUN 14 (7-17) mg/dL Creatinine 0.60 (0.52-1.04) mg/dL Est GFR (CKD-EPI)AfAm >90 (>60 ml/min/1.73 sqM) Est GFR (CKD-EPI)NonAf >90 (>60 ml/min/1.73 sqM) Glucose 128 H (74-99) mg/dL Calcium 9.9 (8.4-10.2) mg/dL Total Bilirubin 0.4 (0.2-1.3) mg/dL AST 33 (14-36) U/L ALT 41 H (4-34) U/L Alkaline Phosphatase 83 (38-126) U/L Creatine Kinase (30-135) U/L Troponin I (0.000-0.034) ng/mL Total Protein 7.9 (6.3-8.2) g/dL Albumin 4.8 (3.5-5.0) g/dL 08/23/22 08/23/22 Range/Units 14:08 14:08 WBC (3.8-10.6) k/uL RBC (3.80-5.40) m/uL Hgb (11.4-16.0) gm/dL Hct (34.0-46.0) % MCV (80.0-100.0) fL MCH (25.0-35.0) pg MCHC (31.0-37.0) g/dL RDW (11.5-15.5) % Plt Count (150-450) k/uL MPV Neutrophils % % Lymphocytes % % Monocytes % % Eosinophils % % Basophils % % Neutrophils # (1.3-7.7) k/uL Lymphocytes # (1.0-4.8) k/uL Monocytes # (0-1.0) k/uL Eosinophils # (0-0.7) k/uL Basophils # (0-0.2) k/uL PT (9.0-12.0) sec INR (<1.2) APTT (22.0-30.0) sec Sodium (137-145) mmol/L Potassium (3.5-5.1) mmol/L Chloride (98-107) mmol/L Carbon Dioxide (22-30) mmol/L Anion Gap mmol/L BUN (7-17) mg/dL Creatinine (0.52-1.04) mg/dL Est GFR (CKD-EPI)AfAm (>60 ml/min/1.73 sqM) Est GFR (CKD-EPI)NonAf (>60 ml/min/1.73 sqM) Glucose (74-99) mg/dL Calcium (8.4-10.2) mg/dL Total Bilirubin (0.2-1.3) mg/dL AST (14-36) U/L ALT (4-34) U/L Alkaline Phosphatase (38-126) U/L Creatine Kinase 72 (30-135) U/L Troponin I <0.012 (0.000-0.034) ng/mL Total Protein (6.3-8.2) g/dL Albumin (3.5-5.0) g/dL - NIH Stroke Scale 1a. Level of Consciousness: (0) alert 1b. LOC Questions: (0) answers correctly 1c. LOC Commands: (0) performs tasks correctly 2. Best Gaze: (0) normal 3. Visual: (0) no visual loss 4. Facial Palsy: (2) partial paralysis 5a. Motor Arm Left: (0) no drift 5b. Motor Arm Right: (0) no drift 6a. Motor Leg Left: (0) no drift 6b. Motor Leg Right: (0) no drift 7. Limb Ataxia: (0) absent 8. Sensory: (0) normal 9. Best Language: (0) no aphasia 10. Dysarthria: (0) normal 11. Extinction/Inattention: (0) no abnormality - Medical Decision Making The patient's workup thus far is negative except for the clinical evaluation t hat seems to be consistent with Lam's palsy. CT showed no acute findings I did interpret the CT as well as x-rays. No evidence of acute processes seen. Patient will be discharged home on valacyclovir as well as prednisone we did discuss keeping the left eye moist and taping it shut at night. She will follow-up with her doctor this week and that point they can decide on neurology follow-up. Was pt. sent in by a medical professional or institution ([facility], ONLINE FACILITATOR, urgent care, hospital, or senior care...) When possible be specific @ -No Did you speak to anyone other than the patient for history (EMS, parent, family, police, friend...)? What history was obtained from this source @ -EMS personnel Did you review nursing and triage notes (agree or disagree)? Why? @ -I reviewed and agree with nursing and triage notes Were old charts reviewed (outside hosp., previous admission, EMS record, old EKG, old radiological studies, urgent care reports/EKG's, senior care records)? Report findings @ -No old charts were reviewed Differential Diagnosis (chest pain, altered mental status, abdominal pain women, abdominal pain men, vaginal bleeding, weakness, fever, dyspnea, syncope, headache, dizziness, GI bleed, back pain, seizure, CVA, palpatations, mental health, musculoskeletal)? @ -Lam's palsy, CVA EKG interpreted by me (3pts min.). @ -As above X-rays interpreted by me (1pt min.). @ -As above CT interpreted by me (1pt min.). @ -As above U/S interpreted by me (1pt. min.). @ -None done What testing was considered but not performed or refused? (CT, X-rays, U/S, labs)? Why? @ -None What meds were considered but not given or refused? Why? @ -None Did you discuss the management of the patient with other professionals (professionals i.e. , PA, ONLINE FACILITATOR, lab, RT, psych nurse, social services coordinator, egg buyer, teacher, custody officer, case reviewer)? Give summary @ -No Was smoking cessation discussed for >3mins.? @ -No Was critical care preformed (if so, how long)? @ -No Were there social determinants of health that impacted care today? How? (H omelessness, low income, unemployed, alcoholism, drug addiction, transportation, low edu. Level, literacy, decrease access to med. care, usp, rehab)? @ -No Was there de-escalation of care discussed even if they declined (Discuss DNR or withdrawal of care, Hospice)? DNR status @ -No What co-morbidities impacted this encounter? (DM, HTN, Smoking, COPD, CAD, Cancer, CVA, ARF, Chemo, Hep., AIDS, mental health diagnosis, sleep apnea, morbid obesity)? @ -Hypertension, diabetes, thyroid disease Was patient admitted / discharged? Hospital course, mention meds given and route, prescriptions, significant lab abnormalities, going to OR and other pertinent info. @ -hospital course Undiagnosed new problem with uncertain prognosis? @ -Lam's palsy Drug Therapy requiring intensive monitoring for toxicity (Heparin, Nitro, Insulin, Cardizem)? @ -No Were any procedures done? @ -No Diagnosis/symptom? @ -Lam's palsy/ left seventh nerve palsy Acute, or Chronic, or Acute on Chronic? @ -Acute Uncomplicated (without systemic symptoms) or Complicated (systemic symptoms)? @ -Complication with seventh nerve palsy Side effects of treatment? @ -No Exacerbation, Progression, or Severe Exacerbation? @ -no Poses a threat to life or bodily function? How? (Chest pain, USA, MD, pneumonia, PE, COPD, DKA, ARF, appy, cholecystitis, CVA, Diverticulitis, Homicidal, Suicidal, threat to staff... and all critical care pts) @ -No - EKG Data -: EKG Interpreted by Me EKG shows normal: sinus rhythm (Sinus rhythm of 95. 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 Aortic Aneurysm for 6 years. Epigastric pain. ortic valve leaking History of Any Multi-Drug Resistant Organisms: None Reported Past Surgical History: Section, Heart Catheterization, Orthopedic Surgery, Tubal Ligation Additional Past Surgical History / Comment(s): Lymph node removal -benign from RT side base of neck, RT INDEX FINGER. COLONOSCOPY, rt heel spur Past Anesthesia/Blood Transfusion Reactions: No Reported Reaction Additional Past Anesthesia/Blood Transfusion Reaction / Comment(s): Pt received blood in past without reaction. Past Psychological History: Anxiety Smoking Status: Former smoker - Past Family History Father Family Medical History: Myocardial Infarction (MD) Additional Family Medical History / Comment(s): Father at the age of 36 yrs from a MD. Pt believes the MD was related to his illness with yellow jaundice. Mother Family Medical History: Cancer, Hypertension Additional Family Medical History / Comment(s): with CA at age 81 Course Vital Signs 08/23/22 08/23/22 08/23/22 13:52 14:01 14:23 Temperature 98 F Pulse Rate 99 90 79 Respiratory 16 18 18 Rate Blood Pressure 147/82 124/103 140/73 O2 Sat by Pulse 95 94 L 98 Oximetry 08/23/22 08/23/22 08/23/22 14:38 14:53 15:00 Temperature Pulse Rate 80 80 80 Respiratory 18 18 18 Rate Blood Pressure 143/79 138/71 O2 Sat by Pulse 95 96 Oximetry 08/23/22 15:23 Temperature Pulse Rate 79 Respiratory 18 Rate Blood Pressure O2 Sat by Pulse 98 Oximetry Disposition Clinical Impression: Lam's palsy Disposition: HOME SELF-CARE Condition: Good Instructions (If sedation given, give patient instructions): Lam Palsy (ED) Additional Instructions: Lubricant to left eye is discussed also tape the left eye at night as needed, follow with Dr. Leiva for any further treatment or referral to neurology. Prescriptions: predniSONE [Deltasone] 40 mg PO BID #14 tab valACYclovir HCL [Valacyclovir] 1,000 mg PO TID #21 tab Is patient prescribed a controlled substance at d/c from ED?: No Referrals: Tello Leiva MD [Primary Care Provider] - 1-2 days Decision Date: 08/23/22 Decision Time: 16:13
[2022-08-23 14:39] LABS: Basophils # (A) 0.1 k/uL (0-0.2); Basophils % (A) 1 %; Eosinophils # (A) 0.4 k/uL (0-0.7); Eosinophils % (A) 4 %; HCT 43.2 % (34.0-46.0); HGB 14.4 gm/dL (11.4-16.0); Lymphocytes # (A) 2.2 k/uL (1.0-4.8); Lymphocytes % (A) 25 %; MCH 30.4 pg (25.0-35.0); MCHC 33.4 g/dL (31.0-37.0); Mean Platelet Volume 9.8; Monocytes # (A) 0.4 k/uL (0-1.0); Monocytes % (A) 4 %; Neutrophils # (A) 5.4 k/uL (1.3-7.7); Neutrophils % (A) 64 %; Platelet Count 275 k/uL (150-450); RBC 4.75 m/uL (3.80-5.40); RDW 13.7 % (11.5-15.5); WBC 8.6 k/uL (3.8-10.6)
[2022-08-23 14:46] LABS: ALT 41 U/L (4-34); AST 33 U/L (14-36); African American GFR (CKD) >90 (>60 ml/min/1.73 sqM); Albumin 4.8 g/dL (3.5-5.0); Alkaline Phosphatase 83 U/L (38-126); Anion Gap 12 mmol/L; Blood Urea Nitrogen 14 mg/dL (7-17); Calcium 9.9 mg/dL (8.4-10.2); Carbon Dioxide 26 mmol/L (22-30); Chloride 101 mmol/L (98-107); Glucose 128 mg/dL (74-99); Non-African American GFR(CKD) >90 (>60 ml/min/1.73 sqM); Potassium 4.7 mmol/L (3.5-5.1); Sodium 139 mmol/L (137-145); Total Bilirubin 0.4 mg/dL (0.2-1.3); Total Protein 7.9 g/dL (6.3-8.2)
[2022-08-23 14:48] LABS: Partial Thromboplastin Time 22.1 sec (22.0-30.0); Prothrombin Time 10.3 sec (9.0-12.0)
--- NOTE | 2022-08-23 14:57 | CT ---
EXAMINATION TYPE: CT brain wo con for TPA DATE OF EXAM: 08/23/2022 COMPARISON: None HISTORY: Possible stroke left side facial droop. CT DLP: 1950.[address] of the brain was performed. The ventricles, basal cisterns and sulci overlying the cerebral convexities demonstrate mild enlargem ent. There is no evidence for intracranial hemorrhage or sulcal effacement. There is decreased attenuation about the periventricular white matter and deep white matter of both c erebral hemispheres, compatible with chronic small vessel ischemia. Differential diagnosis does inclu de demyelination. No mass effects are seen.No midline shift. Osseous calvarium is intact. If symptoms persist consider MRI. IMPRESSION: 1. Age related atrophic and chronic small vessel ischemic change without acute intracranial process s een at this time.
--- NOTE | 2022-08-23 14:58 | XR ---
EXAMINATION TYPE: XR chest 2V DATE OF EXAM: 08/23/2022 COMPARISON: 07/24/2022 HISTORY: Shortness of breath TECHNIQUE: Frontal and lateral views of the chest are obtained. FINDINGS: Scattered senescent parenchymal changes noted. Hyperinflation compatible with COPD. No evidence for infiltrate. No evidence for atelectasis. Heart size is stable. Mediastinal structures are stable and grossly unremarkable. No evidence for hilar prominence. Degenerative changes dorsal spine. IMPRESSION: 1. No evidence for acute pulmonary disease.
--- NOTE | 2022-08-23 15:12 | CT ---
EXAMINATION TYPE: CT angio head neck DATE OF EXAM: 08/23/2022 COMPARISON: None HISTORY: Possible stroke. Left side facial droop CT DLP: Combined DLP of 1950.5 mGycm CONTRAST: Performed with IV Contrast, patient injected with 65cc mL of Isovue 370. Combination Contrast CTA cervical carotids and [place] CTA cervical carotids with 3-D recons truction Contrast CTA of the cervical carotids was performed 3-D reconstruction imaging obtained at a separate workstation. Internal carotid arteries and common carotid arteries are tortuous. Right carotid system: Mild plaque is seen of the right common carotid artery. There is mild plaque a lso noted at the carotid bulb and proximal ICA. No significant diameter reduction. ECA is patent. Right vertebral artery appears unremarkable. Left carotid system: Mild plaque is seen of the left common carotid artery. There is mild plaque als o noted at the carotid bulb and proximal ICA. No significant diameter reduction. ECA is patent. Lef t vertebral artery appears unremarkable. IMPRESSION: 1. No significant diameter reduction to account for the patient's symptoms. CTA [place] with 3-D reconstruction Contrast CTA of the [place] was performed 3-D reconstruction imaging obtained at a separate workstation. Vertebrobasilar system as well as intracranial portions of the internal carotid arteries and their ma oscar tributaries are patent. I do not see evidence for sizable aneurysm or vascular malformation. Pl ease note MRI provides greater sensitivity and specificity. Visualized brain appears grossly unremar kable. IMPRESSION: 1. No evidence for large vessel occlusion at this time. NASCET criteria was used in interpretation of this exam?
[2022-08-23] MEDS ORDERED: predniSONE 50 MG TAB PO STA (15:59)
[2022-08-23] MEDS ORDERED: valACYclovir HCL 1,000 MG TABLET PO STA (16:00)
[2022-08-23 16:28] VITALS: BP 135/61; PULSE 91; TEMP 97.5
== END 2022-08-23 16:28 | disposition home or self-care (01) ==
LOC: EC 13:51
DX: G51.0 Bell's palsy (principal); I67.82 Cerebral ischemia; E11.9 Type 2 diabetes mellitus without complications; K21.9 Gastro-esophageal reflux disease without esophagitis; I10 Essential (primary) hypertension; F41.9 Anxiety disorder, unspecified; Z87.891 Personal history of nicotine dependence; E07.9 Disorder of thyroid, unspecified; Z79.890 Hormone replacement therapy; Z79.84 Long term (current) use of oral hypoglycemic drugs; Z79.899 Other long term (current) drug therapy; Z88.5 Allergy status to narcotic agent
CPT/HCPCS: 36415; 93005; 80053; 82550; 84484; 85025; 85610; 85730; 71046; 70496; 70450; 70498; 99285; J7512; Q9967

== ENCOUNTER → 2023-05-28 | Outpatient (CLI) | payer BC ==
[2023-05-28 16:57] LABS: Gliadin AB IgA, Deaminated POSITIVE; Gliadin AB IgA, Unit 68.2 U/mL; Gliadin AB IgG, Deaminated Negative (Negative); Gliadin AB IgG, Unit 6.4 U/mL
== END | disposition home or self-care (01) ==
LOC: LABWHC1 09:24
PROVIDERS: ATTEND Internal Medicine Gastroenterology
DX: K90.0 Celiac disease (principal)
CPT/HCPCS: 36415; 83516

== ENCOUNTER → 2023-06-10 | Outpatient (CLI) | payer BC | END | disposition home or self-care (01) | LOC: LABWHC1 15:24 | PROVIDERS: ATTEND Psychiatry & Neurology Neurology | DX: G51.0 Bell's palsy (principal) | CPT/HCPCS: 36415 ==

== ENCOUNTER 2023-06-17 06:50 | Day surgery (SDC) | payer BC ==
[2023-06-16 10:36] VITALS: BMI 38.4
[2023-06-17 07:42] LABS: Glucose,Whole Blood 110 mg/dL (70-110)
[2023-06-17] MEDS: LACTATED RINGERS 1,000 ML IV SCH (07:42)
[2023-06-17 08:00] VITALS: TEMP 97
[2023-06-17] MEDS ORDERED: LIDOCAINE 1% INJ 10MG/ML (20 ML MDV) ONE (08:29)
[2023-06-17] MEDS ORDERED: PROPOFOL 10 MG/ML 20 ML VIAL IV ONE (08:29)
--- NOTE | 2023-06-17 08:55 | P.PCN ---
Date of Procedure: 06/17/23 Procedure(s) Performed: BRIEF HISTORY: Patient is a 63-year-old pleasant white female scheduled for an elective colonoscopy as a part of screening for colon cancer/positive cologuard PROCEDURE PERFORMED: Colonoscopy biopsy. PREOPERATIVE DIAGNOSIS: Screening for colon cancer/positive cologuard. IV sedation per Anesthesia. PROCEDURE: After informed consent was obtained, the patient, was brought into the endoscopy unit. IV sedation was administered by Anesthesia under continuous monitoring. Digital rectal examination was normal. Initially the Olympus CF-160 flexible video colonoscope was then inserted in the rectum, gradually advanced into the cecum without any difficulty. Careful examination was performed as the scope was gradually being withdrawn. Ileocecal valve and the appendiceal orifice were visualized and appeared normal. Prep was fair.. Mucosa of the cecum, ascending colon, transverse colon appeared normal. In the descending colon there was a 4 mm polyp that was removed by cold biopsy. Rest of the, descending colon, sigmoid colon, and rectum appeared normal. In the rectum there was a 3 mm polyp that was removed by cold biopsy. Retroflexion was performed in the rectum and no lesions were seen. The patient tolerated the procedure well. IMPRESSION: 4 mm descending colon polyp status post cold biopsy 3 mm rectal polyp status post cold biopsy RECOMMENDATIONS: Findings of this examination were discussed with the patient as well as a family. She was advised to follow with the biopsy result. If the biopsy result adenoma she can have a repeat colonoscopy in 5 years..
[2023-06-17 09:04] LABS: Glucose,Whole Blood 102 mg/dL (70-110)
[2023-06-17 09:08] VITALS: BP 121/71; PULSE 60; RESP 18
== END 2023-06-17 09:15 | disposition home or self-care (01) ==
LOC: ORWHC2ENDO 06:50
PROVIDERS: ATTEND Internal Medicine Gastroenterology
DX: K63.5 Polyp of colon (principal); K62.1 Rectal polyp; I10 Essential (primary) hypertension; E78.5 Hyperlipidemia, unspecified; E11.9 Type 2 diabetes mellitus without complications; I71.21 Aneurysm of the ascending aorta, without rupture; I25.10 Atherosclerotic heart disease of native coronary artery without angina pectoris; E03.9 Hypothyroidism, unspecified; K21.9 Gastro-esophageal reflux disease without esophagitis; F41.0 Panic disorder [episodic paroxysmal anxiety]; G51.0 Bell's palsy; Z79.85 Long-term (current) use of injectable non-insulin antidiabetic drugs; Z79.84 Long term (current) use of oral hypoglycemic drugs; Z79.891 Long term (current) use of opiate analgesic; Z79.82 Long term (current) use of aspirin; Z79.899 Other long term (current) drug therapy; Z88.5 Allergy status to narcotic agent; Z98.891 History of uterine scar from previous surgery; Z98.51 Tubal ligation status
CPT/HCPCS: 88305; 45380; J2001; J2704

== ENCOUNTER 2023-07-05 14:53 | Inpatient (IN) | payer BC ==
--- NOTE | 2023-07-05 15:14 | ED ---
SOB HPI - General Chief Complaint: Shortness of Breath Stated Complaint: Weakness Time Seen by Provider: 07/05/23 14:56 Source: patient, EMS, RN notes reviewed, old records reviewed Mode of arrival: EMS Limitations: no limitations - History of Present Illness Initial Comments: This is a 63-year-old female to the ER for evaluation of weakness and dizziness lightheadedness. Shortness of breath without chest pain. No travel history or sick contacts. Patient was inside the house taking a nap per the he was outside doing some work she called him into the house and he noticed that she was going to pass out she did pass out becoming unresponsive patient feels severely weak lightheaded short of breath like she is going to pass out. Still feels like she is going to pass out feels like she cannot control her bowel habits, patient did have significant amount of stool loss and EMS during transport and continues to here in the ER MD Complaint: shortness of breath -: hour(s) Severity: severe Severity scale (1-10): 10 Consistency: constant Improves With: nothing Known History Of: other Context: recent illness Associated Symptoms: chest pain Treatments Prior to Arrival: none - Related Data Home Medications Medication Instructions Recorded Confirmed Levothyroxine Sodium 175 mcg PO DAILY 02/19/16 07/05/23 Metoprolol Tartrate [Lopressor] 25 mg PO BID 10/15/17 07/05/23 Venlafaxine HCl [Effexor XR] 225 mg PO DAILY 10/15/17 07/05/23 Atorvastatin Calcium [Lipitor] 20 mg PO HS 01/18/19 07/05/23 lisinopriL [Zestril] 5 mg PO DAILY 01/01/21 07/05/23 metFORMIN HCL [Glucophage] 1,000 mg PO BID 01/01/21 07/05/23 Tirzepatide [Mounjaro] 5 mg SQ MO 06/16/23 07/05/23 Ergocalciferol (Vitamin D2) 1,250 mcg PO Q7D 07/05/23 07/05/23 [Drisdol (50,000 Iu)] Gabapentin [Neurontin] 100 mg PO TID 07/05/23 07/05/23 Prochlorperazine [Compazine] 10 mg PO TID-W/MEALS 07/05/23 07/05/23 Previous Rx's Medication Instructions Recorded Nitroglycerin Sl Tabs [Nitrostat] 0.4 mg SUBLINGUAL Q5M PRN #30 tab 07/25/22 Pantoprazole Sodium [Protonix] 40 mg PO DAILY #30 tab 07/25/22 Levofloxacin [Levaquin] 500 mg PO DAILY 7 Days #7 tab 07/09/23 metroNIDAZOLE [Flagyl] 500 mg PO TID 7 Days #21 tab 07/09/23 Allergies Allergy/AdvReac Type Severity Reaction Status Date / Time codeine Allergy Rash/Hives Verified 07/05/23 17:24 Review of Systems ROS Statement: Those systems with pertinent positive or pertinent negative responses have been documented in the HPI. ROS Other: All systems not noted in ROS Statement are negative. Past Medical History Past Medical History: Diabetes Mellitus, GERD/Reflux, Hypertension, Thyroid Disorder Additional Past Medical History / Comment(s): Pain lower back, IDDM type II, TRAVIS heel spurs, HX Vertigo, SHORTNESS OF BREATH W/ LITTLE ACTIVITY, LOWER BACK PAIN, OCC PALPITATIONS. Aortic Aneurysm for 6 years. Epigastric pain. ortic valve leaking History of Any Multi-Drug Resistant Organisms: None Reported Past Surgical History: Section, Heart Catheterization, Orthopedic Surgery, Tubal Ligation Additional Past Surgical History / Comment(s): Lymph node removal -benign from RT side base of neck, RT INDEX FINGER. COLONOSCOPY, rt heel spur Past Anesthesia/Blood Transfusion Reactions: No Reported Reaction Additional Past Anesthesia/Blood Transfusion Reaction / Comment(s): Pt received blood in past without reaction. Past Psychological History: Anxiety Smoking Status: Former smoker - Past Family History Father Family Medical History: Myocardial Infarction (MS) Additional Family Medical History / Comment(s): Father at the age of 36 yrs from a MS. Pt believes the MS was related to his illness with yellow jaundice. Mother Family Medical History: Cancer, Hypertension Additional Family Medical History / Comment(s): with CA at age 81 General Exam General appearance: alert, in no apparent distress, anxious, in distress Head exam: Present: atraumatic, normocephalic, normal inspection Eye exam: Present: normal appearance, PERRL, EOMI. Absent: scleral icterus, conjunctival injection, periorbital swelling ENT exam: Present: normal exam, mucous membranes moist Neck exam: Present: normal inspection. Absent: tenderness, meningismus, lymphadenopathy Respiratory exam: Present: normal lung sounds bilaterally. Absent: respiratory distress, wheezes, rales, rhonchi, stridor Cardiovascular Exam: Present: regular rate, normal rhythm, normal heart sounds. Absent: systolic murmur, diastolic murmur, rubs, gallop, clicks GI/Abdominal exam: Present: soft, normal bowel sounds. Absent: distended, tenderness, guarding, rebound, rigid Extremities exam: Present: normal inspection, full ROM, normal capillary refill. Absent: tenderness, pedal edema, joint swelling, calf tenderness Back exam: Present: normal inspection Neurological exam: Present: alert, oriented X3, CN II-XII intact Psychiatric exam: Present: normal affect, normal mood Skin exam: Present: warm, dry, intact, normal color. Absent: rash Course Vital Signs 07/05/23 07/05/23 07/05/23 14:56 17:18 18:16 Temperature 97.3 F L 97.4 F L Pulse Rate 116 H 99 105 H Pulse Rate [ Pulse Oximetery ] Respiratory 20 20 20 Rate Blood Pressure 98/34 105/60 99/60 Blood Pressure [Right Arm] O2 Sat by Pulse 88 L 97 96 Oximetry 07/05/23 07/05/23 07/05/23 19:33 20:00 22:34 Temperature 97.7 F Pulse Rate 112 H 105 H 102 H Pulse Rate [ Pulse Oximetery ] Respiratory 19 18 18 Rate Blood Pressure 126/82 117/75 114/69 Blood Pressure [Right Arm] O2 Sat by Pulse 94 L 96 97 Oximetry 07/06/23 07/06/23 07/06/23 01:59 05:30 08:00 Temperature 98.2 F Pulse Rate 101 H 104 H Pulse Rate [ 92 Pulse Oximetery ] Respiratory 18 18 17 Rate Blood Pressure 121/65 120/87 Blood Pressure 109/67 [Right Arm] O2 Sat by Pulse 96 96 95 Oximetry 07/06/23 07/06/23 07/06/23 08:23 11:55 15:20 Temperature Pulse Rate Pulse Rate [ 84 67 Pulse Oximetery ] Respiratory 17 18 Rate Blood Pressure Blood Pressure 134/73 106/88 [Right Arm] O2 Sat by Pulse 96 99 98 Oximetry 07/06/23 07/07/23 07/07/23 20:00 00:00 02:00 Temperature 98.2 F Pulse Rate Pulse Rate [ 75 80 80 Pulse Oximetery ] Respiratory 18 18 18 Rate Blood Pressure Blood Pressure 108/66 122/66 [Right Arm] O2 Sat by Pulse 97 94 L Oximetry 07/07/23 07/07/23 07/07/23 04:00 08:00 12:00 Temperature 98.2 F 98.2 F Pulse Rate Pulse Rate [ 91 93 64 Pulse Oximetery ] Respiratory 18 18 17 Rate Blood Pressure Blood Pressure 126/77 133/77 118/75 [Right Arm] O2 Sat by Pulse 94 L 94 L 96 Oximetry 07/07/23 07/07/23 07/07/23 13:52 15:12 17:09 Temperature 98.2 F 98.1 F Pulse Rate Pulse Rate [ 93 72 85 Pulse Oximetery ] Respiratory 18 17 17 Rate Blood Pressure Blood Pressure 106/60 143/80 [Right Arm] O2 Sat by Pulse 98 96 Oximetry - Reevaluation(s) Reevaluation #1: 07/05/23 18:37 Medical records reviewed Reevaluation #2: 07/05/23 18:38 No recurrent syncopal event Family at bedside patient states that patient did pass out at home EMS was called and patient did have significant bowel movement during EMS transport with complaints of shortness of breath Reevaluation #3: 07/05/23 18:38 Patient informed of results and questions answered Reevaluation #4: Was pt. sent in by a medical professional or institution (, PA, DIESEL POWERPLANT SUPERVISOR, urgent c are, hospital, or assisted...) When possible be specific @ -no Did you speak to anyone other than the patient for history (EMS, parent, family, police, friend...)? What history was obtained from this source @ -no Did you review nursing and triage notes (agree or disagree)? Why? @ -agree Are old charts reviewed (outside hosp., previous admission, EMS record, old EKG, old radiological studies, urgent care reports/EKG's, assisted records)? Report findings @ -yes Differential Diagnosis (chest pain, altered mental status, abdominal pain women, abdominal pain men, vaginal bleeding, weakness, fever, dyspnea, syncope, headache, dizziness, GI bleed, back pain, seizure, CVA, palpatations, mental health, musculoskeletal)? @ -prior EKG interpreted by me (3pts min.). @ -yes X-rays interpreted by me (1pt min.). @ -yes negative for acute disease CT interpreted by me (1pt min.). @ -Yes negative for acute disease U/S interpreted by me (1pt. min.). @ -no What testing was considered but not performed or refused? (CT, X-rays, U/S, labs)? Why? @ -none What meds were considered but not given or refused? Why? @ -none Did you discuss the management of the patient with other professionals (professionals i.e. , PA, DIESEL POWERPLANT SUPERVISOR, lab, RT, psych nurse, social media sr strategy manager, jacker feeder, teacher, radio division officer, case management manager)? Give summary @ -no Was smoking cessation discussed for >3mins.? @ -no Was critical care preformed (if so, how long)? @ -yes31 Were there social determinants of health that impacted care today? How? (Homelessness, low income, unemployed, alcoholism, drug addiction, transpo rtation, low edu. Level, literacy, decrease access to med. care, skilled nursing, rehab)? @ -none Was there de-escalation of care discussed even if they declined (Discuss DNR or withdrawal of care, Hospice)? DNR status @ -no What co-morbidities impacted this encounter? (DM, HTN, Smoking, COPD, CAD, Cancer, CVA, ARF, Chemo, Hep., AIDS, mental health diagnosis, sleep apnea, morbid obesity)? @ -none Was patient admitted / discharged? Hospital course, mention meds given and route, prescriptions, significant lab abnormalities, going to OR and other pertinent info. @ - 63 female to the ER for evaluation today. Patient presents to the emergency department today for evaluation of a syncopal event. Persistent severe diarrhea here throughout the emergency department and time spent in the emergency department. Patient is maintaining mental state no headache chest pain shortness of breath with occasional crampy abdominal pain. Patient will be admitted for continued fecal management as well as monitor Admitted Undiagnosed new problem with uncertain prognosis? @ -no Drug Therapy requiring intensive monitoring for toxicity (Heparin, Nitro, Insulin, Cardizem)? @ -no Were any procedures done? @ -no Diagnosis/symptom? @ -Hypovolemia diarrhea weakness altered mental status, syncope Acute, or Chronic, or Acute on Chronic? @ -Acute Uncomplicated (without systemic symptoms) or Complicated (systemic symptoms)? @ -Complicated Side effects of treatment? @ -no Exacerbation, Progression, or Severe Exacerbation? @ -exacerbation Poses a threat to life or bodily function? How? (Chest pain, USA, MS, pneumonia, PE, COPD, DKA, ARF, appy, cholecystitis, CVA, Diverticulitis, Homicidal, Suicidal, threat to staff... and all critical care pts) @ -yes with significant recurrent syncopal event and significant abnormal vital signs Reevaluation #5: Differential Syncope: Valvular disease, hypertrophic cardiomyopathy, pulmonary embolism, tamponade, tachycardia, bradycardia, MS, hypovolemia, hemorrhage, dissection, anemia, intracranial hemorrhage, seizure, hypoglycemia, carbon monoxide poisoning, this is not meant to be an all-inclusive list. - Consultations Consultation #1: Spoke with [facility] who agreed to admit this patient Procedures - Sepsis Sepsis Focused Exam #1 Time Sepsis Criteria Met: 18:00 Sepsis Focused Exam Date: 07/05/23 Sepsis Focused Exam Time: 23:00 Sepsis Focused Exam Complete: Yes Vital Signs & RN Notes Reviewed: Yes Capillary Refill: < 2 Seconds: Fingers, Toes Peripheral Pulses: Normal: Radial (R), Radial (L), Posterior Tibialis (R), Posterior Tibialis (L), Dorsalis Pedis (R), Dorsalis Pedis (L) Respiratory Exam: normal lung sounds Cardiovascular Exam: tachycardia Medical Decision Making - Medical Decision Making 63 female to the ER for evaluation today. Patient presents to the emergency department today for evaluation of a syncopal event. Persistent severe diarrhea here throughout the emergency department and time spent in the emergency department. Patient is maintaining mental state no headache chest pain shortness of breath with occasional crampy abdominal pain. Patient will be admitted for continued fecal management as well as monitor - Lab Data Result diagrams: 07/07/23 15:37 07/07/23 15:37 Lab Results 07/05/23 07/05/23 07/05/23 Range/Units 15:13 15:13 15:13 WBC 15.7 H (3.8-10.6) k/uL RBC 5.99 H (3.80-5.40) m/uL Hgb 18.0 H (11.4-16.0) gm/dL Hct 55.5 H (34.0-46.0) % MCV 92.8 (80.0-100.0) fL MCH 30.1 (25.0-35.0) pg MCHC 32.4 (31.0-37.0) g/dL RDW 13.6 (11.5-15.5) % Plt Count DIESEL POWERPLANT SUPERVISOR MPV 10.3 Neutrophils % Not Reportable Neutrophils % (Manual) 68 % Band Neuts % (Manual) 6 % Lymphocytes % Not Reportable Lymphocytes % (Manual) 24 % Monocytes % Not Reportable Eosinophils % Not Reportable Eosinophils % (Manual) 2 % Basophils % Not Reportable Neutrophils # Not Reportable Neutrophils # (Manual) 11.60 H (1.3-7.7) k/uL Lymphocytes # Not Reportable Lymphocytes # (Manual) 3.77 (1.0-4.8) k/uL Monocytes # Not Reportable Eosinophils # Not Reportable Eosinophils # (Manual) 0.31 (0-0.7) k/uL Basophils # Not Reportable Nucleated RBCs 0 (0-0) /100 WBC Manual Slide Review Performed PT 11.6 (10.0-12.5) sec INR 1.1 (<1.2) APTT 21.9 L (22.0-30.0) sec D-Dimer 14.65 H (<0.60) mg/L FEU Sodium 140 (137-145) mmol/L Potassium 5.1 (3.5-5.1) mmol/L Chloride 109 H (98-107) mmol/L Carbon Dioxide 15 L (22-30) mmol/L Anion Gap 16 mmol/L BUN 14 (7-17) mg/dL Creatinine 0.71 (0.52-1.04) mg/dL Est GFR (CKD-EPI)AfAm >90 (>60 ml/min/1.73 sqM) Est GFR (CKD-EPI)NonAf >90 (>60 ml/min/1.73 sqM) Glucose 237 H (74-99) mg/dL Lactic Ac Sepsis Rflx Plasma Lactic Acid Jordi (0.7-2.0) mmol/L Calcium 9.3 (8.4-10.2) mg/dL Phosphorus 7.2 H (2.5-4.5) mg/dL Magnesium 1.8 (1.6-2.3) mg/dL Total Bilirubin 1.0 (0.2-1.3) mg/dL AST 68 H (14-36) U/L ALT 38 H (4-34) U/L Alkaline Phosphatase 110 (38-126) U/L Troponin I (0.000-0.034) ng/mL NT-Pro-B Natriuret Pep 77 pg/mL Total Protein 7.0 (6.3-8.2) g/dL Albumin 4.2 (3.5-5.0) g/dL TSH 0.532 (0.465-4.680) mIU/L Urine Color Urine Appearance (Clear) Urine pH (5.0-8.0) Ur Specific [place] (1.001-1.035) Urine Protein (Negative) Urine Glucose (UA) (Negative) Urine Ketones (Negative) Urine Blood (Negative) Urine Nitrite (Negative) Urine Bilirubin (Negative) Urine Urobilinogen (<2.0) mg/dL Ur Leukocyte Esterase (Negative) Urine RBC (0-5) /hpf Urine WBC (0-5) /hpf Ur Squamous Epith Cells (0-4) /hpf Urine Bacteria (None) /hpf Hyaline Casts (0-2) /lpf Urine Mucus (None) /hpf C. difficile (EIA) Intrp (Negative) 07/05/23 07/05/23 07/05/23 Range/Units 15:13 15:13 15:13 WBC (3.8-10.6) k/uL RBC (3.80-5.40) m/uL Hgb (11.4-16.0) gm/dL Hct (34.0-46.0) % MCV (80.0-100.0) fL MCH (25.0-35.0) pg MCHC (31.0-37.0) g/dL RDW (11.5-15.5) % Plt Count MPV Neutrophils % Neutrophils % (Manual) % Band Neuts % (Manual) % Lymphocytes % Lymphocytes % (Manual) % Monocytes % Eosinophils % Eosinophils % (Manual) % Basophils % Neutrophils # Neutrophils # (Manual) (1.3-7.7) k/uL Lymphocytes # Lymphocytes # (Manual) (1.0-4.8) k/uL Monocytes # Eosinophils # Eosinophils # (Manual) (0-0.7) k/uL Basophils # Nucleated RBCs (0-0) /100 WBC Manual Slide Review PT (10.0-12.5) sec INR (<1.2) APTT (22.0-30.0) sec D-Dimer (<0.60) mg/L FEU Sodium (137-145) mmol/L Potassium (3.5-5.1) mmol/L Chloride (98-107) mmol/L Carbon Dioxide (22-30) mmol/L Anion Gap mmol/L BUN (7-17) mg/dL Creatinine (0.52-1.04) mg/dL Est GFR (CKD-EPI)AfAm (>60 ml/min/1.73 sqM) Est GFR (CKD-EPI)NonAf (>60 ml/min/1.73 sqM) Glucose (74-99) mg/dL Lactic Ac Sepsis Rflx Plasma Lactic Acid Jordi 6.3 H* (0.7-2.0) mmol/L Calcium (8.4-10.2) mg/dL Phosphorus (2.5-4.5) mg/dL Magnesium (1.6-2.3) mg/dL Total Bilirubin (0.2-1.3) mg/dL AST (14-36) U/L ALT (4-34) U/L Alkaline Phosphatase (38-126) U/L Troponin I <0.012 (0.000-0.034) ng/mL NT-Pro-B Natriuret Pep pg/mL Total Protein (6.3-8.2) g/dL Albumin (3.5-5.0) g/dL TSH (0.465-4.680) mIU/L Urine Color Yellow Urine Appearance Cloudy H (Clear) Urine pH 6.5 (5.0-8.0) Ur Specific [place] 1.012 (1.001-1.035) Urine Protein 2+ H (Negative) Urine Glucose (UA) 2+ H (Negative) Urine Ketones Negative (Negative) Urine Blood Moderate H (Negative) Urine Nitrite Negative (Negative) Urine Bilirubin Negative (Negative) Urine Urobilinogen <2.0 (<2.0) mg/dL Ur Leukocyte Esterase Negative (Negative) Urine RBC 1 (0-5) /hpf Urine WBC 1 (0-5) /hpf Ur Squamous Epith Cells 1 (0-4) /hpf Urine Bacteria Rare H (None) /hpf Hyaline Casts 1 (0-2) /lpf Urine Mucus Rare H (None) /hpf C. difficile (EIA) Intrp (Negative) 07/05/23 07/05/23 Range/Units 16:36 16:56 WBC (3.8-10.6) k/uL RBC (3.80-5.40) m/uL Hgb (11.4-16.0) gm/dL Hct (34.0-46.0) % MCV (80.0-100.0) fL MCH (25.0-35.0) pg MCHC (31.0-37.0) g/dL RDW (11.5-15.5) % Plt Count MPV Neutrophils % Neutrophils % (Manual) % Band Neuts % (Manual) % Lymphocytes % Lymphocytes % (Manual) % Monocytes % Eosinophils % Eosinophils % (Manual) % Basophils % Neutrophils # Neutrophils # (Manual) (1.3-7.7) k/uL Lymphocytes # Lymphocytes # (Manual) (1.0-4.8) k/uL Monocytes # Eosinophils # Eosinophils # (Manual) (0-0.7) k/uL Basophils # Nucleated RBCs (0-0) /100 WBC Manual Slide Review PT (10.0-12.5) sec INR (<1.2) APTT (22.0-30.0) sec D-Dimer (<0.60) mg/L FEU Sodium (137-145) mmol/L Potassium (3.5-5.1) mmol/L Chloride (98-107) mmol/L Carbon Dioxide (22-30) mmol/L Anion Gap mmol/L BUN (7-17) mg/dL Creatinine (0.52-1.04) mg/dL Est GFR (CKD-EPI)AfAm (>60 ml/min/1.73 sqM) Est GFR (CKD-EPI)NonAf (>60 ml/min/1.73 sqM) Glucose (74-99) mg/dL Lactic Ac Sepsis Rflx Y Plasma Lactic Acid Jordi (0.7-2.0) mmol/L Calcium (8.4-10.2) mg/dL Phosphorus (2.5-4.5) mg/dL Magnesium (1.6-2.3) mg/dL Total Bilirubin (0.2-1.3) mg/dL AST (14-36) U/L ALT (4-34) U/L Alkaline Phosphatase (38-126) U/L Troponin I (0.000-0.034) ng/mL NT-Pro-B Natriuret Pep pg/mL Total Protein (6.3-8.2) g/dL Albumin (3.5-5.0) g/dL TSH (0.465-4.680) mIU/L Urine Color Urine Appearance (Clear) Urine pH (5.0-8.0) Ur Specific [place] (1.001-1.035) Urine Protein (Negative) Urine Glucose (UA) (Negative) Urine Ketones (Negative) Urine Blood (Negative) Urine Nitrite (Negative) Urine Bilirubin (Negative) Urine Urobilinogen (<2.0) mg/dL Ur Leukocyte Esterase (Negative) Urine RBC (0-5) /hpf Urine WBC (0-5) /hpf Ur Squamous Epith Cells (0-4) /hpf Urine Bacteria (None) /hpf Hyaline Casts (0-2) /lpf Urine Mucus (None) /hpf C. difficile (EIA) Intrp Negative (Negative) - EKG Data -: EKG Interpreted by Me (EKG sinus tachycardia 116 [place] 157 QRS 133 QTc 425) - Radiology Data Radiology results: report reviewed (CT chest abdomen pelvis negative for acute d isease), image reviewed Critical Care Time Critical Care Time: Yes Total Critical Care Time: 31 Disposition Clinical Impression: Weakness, Dehydration, Syncope, Diarrhea, Chest pain, Hypovolemia, Dyspnea, Hypoxia, Tachycardia Disposition: ADMITTED IP TO THIS HOSP Condition: Serious Is patient prescribed a controlled substance at d/c from ED?: No Time of Disposition: 18:00
[2023-07-05] MEDS: SODIUM CHLORIDE 0.9% 1,000 ML IV STA ×4 (15:30→19:34)
--- NOTE | 2023-07-05 15:31 | XR ---
EXAMINATION TYPE: XR chest 1V portable DATE OF EXAM: 07/05/2023 3:27 PM CLINICAL INDICATION:Female, 63 years old with history of ams; [facility] COMPARISON: Chest radiographs from 08/23/2022 TECHNIQUE: XR chest 1V portable Frontal view of the chest. FINDINGS: Lungs/Pleura: Subsegmental atelectasis is identified in the lung bases. No evidence of pleural effusi on or pneumothorax. Pulmonary vascularity: Unremarkable. Heart/mediastinum: Cardiomediastinal silhouette is unremarkable. Musculoskeletal: No acute osseous pathology. IMPRESSION: No acute cardiopulmonary disease/process.
[2023-07-05 16:01] LABS: ALT 38 U/L (4-34); AST 68 U/L (14-36); African American GFR (CKD) >90 (>60 ml/min/1.73 sqM); Albumin 4.2 g/dL (3.5-5.0); Alkaline Phosphatase 110 U/L (38-126); Anion Gap 16 mmol/L; Blood Urea Nitrogen 14 mg/dL (7-17); Calcium 9.3 mg/dL (8.4-10.2); Carbon Dioxide 15 mmol/L (22-30); Chloride 109 mmol/L (98-107); Glucose 237 mg/dL (74-99); Magnesium 1.8 mg/dL (1.6-2.3); Non-African American GFR(CKD) >90 (>60 ml/min/1.73 sqM); Phosphorus 7.2 mg/dL (2.5-4.5); Sodium 140 mmol/L (137-145)
[2023-07-05 16:06] LABS: MCH 30.1 pg (25.0-35.0); MCHC 32.4 g/dL (31.0-37.0); MCV 92.8 fL (80.0-100.0); Mean Platelet Volume 10.3; RBC 5.99 m/uL (3.80-5.40); RDW 13.6 % (11.5-15.5); WBC 15.7 k/uL (3.8-10.6)
[2023-07-05 16:09] LABS: INR 1.1 (<1.2); Prothrombin Time 11.6 sec (10.0-12.5)
[2023-07-05 16:10] LABS: NT-Pro-B-Type Natriuretic Pept 77 pg/mL
[2023-07-05 16:11] LABS: HCT 55.5 % (34.0-46.0)
[2023-07-05 16:32] LABS: Potassium 5.1 mmol/L (3.5-5.1)
[2023-07-05 16:49] LABS: Partial Thromboplastin Time 21.9 sec (22.0-30.0)
[2023-07-05 17:00] LABS: Band Neutrophils % 6 %; Eosinophils # (M) 0.31 k/uL (0-0.7); Lymphocytes # (M) 3.77 k/uL (1.0-4.8); Neutrophils % (M) 68 %; Nucleated Red Blood Cells 0 /100 WBC (0-0); Total Cells Counted 100
--- NOTE | 2023-07-05 17:59 | CT ---
EXAMINATION TYPE: CT angio chest CT DLP: 2446.6 (combined) mGycm, Automated exposure control for dose reduction was used. DATE OF EXAM: 07/05/2023 5:44 PM COMPARISON: CT chest 07/24/2022. CLINICAL INDICATION:Female, 63 years old with history of pain; pain, sob TECHNIQUE/CONTRAST: CTA scan of the thorax is performed with IV Contrast, patient injected with 100 cc mL of Isovue 300, MIP images are created and reviewed these are created on a separate workstation.. FINDINGS: Pulmonary Artery: There is no evidence for a filling defect within the pulmonary vasculature to sugge st acute pulmonary embolism. Stable dilation of the main pulmonary artery Lungs/Pleura: Subsegmental atelectasis and scarring noted in the right lung base. No evidence of pleu ral effusion or pneumothorax. Airway: Large airways are patent. Heart: Heart is within normal limits for size. Coronary artery calcifications identified. Vasculature: No evidence of aortic aneurysm. Mediastinum: No gross evidence of adenopathy. Musculoskeletal: No acute osseous abnormalities Soft Tissues: Unremarkable. Lower neck: No significant findings. IMPRESSION: 1. No evidence of pulmonary embolism. 2. Stable dilation of the main pulmonary artery which can be seen with underlying pulmonary hypertens ion.
--- NOTE | 2023-07-05 18:02 | CT ---
EXAMINATION TYPE: CT abdomen pelvis w con CT DLP: 2446.6 (combined) mGycm, Automated exposure control for dose reduction was used. DATE OF EXAM: 07/05/2023 5:45 PM COMPARISON: None. CLINICAL INDICATION:Female, 63 years old with history of pain; generalized abd pain with new incontin ence. TECHNIQUE: Axial CT of the abdomen and pelvis. Sagittal and coronal reformats were created on a [employer] workstation. Contrast used:100 cc mL of Isovue 300 with IV Contrast, (none if empty) Oral contrast used: without Oral Contrast (none if empty) FINDINGS: LIVER: Unremarkable GALLBLADDER AND BILE DUCTS: Unremarkable. PANCREAS: Unremarkable. SPLEEN: Unremarkable. ADRENAL GLANDS: Unremarkable. KIDNEYS AND URETERS: No evidence of hydronephrosis or renal calculus. The ureters are unremarkable. PELVIS BLADDER: Nondistended with Lyons catheter in place. REPRODUCTIVE: Coarse calcifications of the prostate gland are identified. ABDOMEN & PELVIS STOMACH AND BOWEL: Stomach and duodenum are unremarkable. Rectal tube in place. No evidence of bowel obstruction. PERITONEUM/RETROPERITONEUM: No evidence of pneumoperitoneum or free fluid. VASCULATURE: Mild atherosclerotic calcifications are present throughout the abdominal aorta and its b ranches. No evidence of aortic aneurysm. MUSCULOSKELETAL: No acute osseous abnormalities. Moderate disc degeneration changes are present throu ghout the thoracolumbar spine. LYMPH NODES: No gross evidence for lymphadenopathy. SOFT TISSUE/ABDOMINAL WALL: Unremarkable IMPRESSION: No acute intra-abdominal process.
[2023-07-05] MEDS ORDERED: MORPHINE SULFATE 4 MG/ML SYRINGE IV PRN (18:08)
[2023-07-05] MEDS ORDERED: NALOXONE 0.4 MG/ML 1 ML VIAL IV PRN (18:08)
[2023-07-05 18:30] LABS: Appearance,Urine Cloudy (Clear); Bacteria,Urine Rare /hpf; Bilirubin,Urine Negative (Negative); Blood,Urine Moderate (Negative); Color,Urine Yellow; Glucose,Urine (UA) 2+ (Negative); Hyaline Casts,Urine 1 /lpf (0-2); Ketones,Urine Negative (Negative); Leukocyte Esterase,Urine Negative (Negative); Mucus,Urine Rare /hpf; Nitrite,Urine Negative (Negative); PH, Urine 6.5 (5.0-8.0); Protein,Urine 2+ (Negative); RBC,Urine 1 /hpf (0-5); Specific Gravity,Urine 1.012 (1.001-1.035); Squamous Epithelial Cell,Urine 1 /hpf (0-4); Urobilinogen,Urine <2.0 mg/dL (<2.0); WBC,Urine 1 /hpf (0-5)
[2023-07-05] MEDS: ONDANSETRON 4 MG/2 ML VIAL IVP PRN (21:06)
[2023-07-05] MEDS: LORazepam 2 MG/ML INJ IV STA (21:07)
[2023-07-06] MEDS ORDERED: NITROGLYCERIN SL TABS 0.4 MG TAB SUBLINGUAL PRN (08:37)
[2023-07-06 08:38] LABS: Basophils % (A) 0 %; Eosinophils % (A) 0 %; HCT 45.5 % (34.0-46.0); HGB 15.2 gm/dL (11.4-16.0); Lymphocytes # (A) 1.6 k/uL (1.0-4.8); Lymphocytes % (A) 17 %; MCH 30.6 pg (25.0-35.0); MCHC 33.5 g/dL (31.0-37.0); MCV 91.4 fL (80.0-100.0); Mean Platelet Volume 10.1; Monocytes # (A) 0.5 k/uL (0-1.0); Monocytes % (A) 6 %; Neutrophils # (A) 6.8 k/uL (1.3-7.7); Neutrophils % (A) 75 %; Platelet Count 303 k/uL (150-450); RBC 4.98 m/uL (3.80-5.40); RDW 13.9 % (11.5-15.5)
[2023-07-06] MEDS ORDERED: LOPERAMIDE 2 MG CAP PO PRN (08:41)
--- NOTE | 2023-07-06 08:51 | P.HPIM ---
History of Present Illness Patient is a pleasant 63 years old female with past medical history of GERD, diabetes mellitus, hypertension, hypothyroidism, celiac disease. Had colonoscopy with Dr. Mcfadden about 2 weeks ago for screening for cancer as per patient Yesterday she was sitting in bed watching TV when she felt sudden was going on and urge to have a bowel movement, however on her way to the restroom she felt dizzy and almost passed out as per patient and per documentation patient did pass out. Also states that her blood pressure was significantly low when her checked her blood pressure but she cannot recall the numbers Since this happened she has been having continuous diarrhea and rectal tube has been placed. And there is about 200 cc of light brown stool and the rectal bag. Patient had abdominal cramps all overnight about 9/10 in the lower abdomen associated with her bowel movements, nonradiating Patient feels very nauseated but she did not throw up She denies urinary complaint no dysuria or urgency, currently has a Lyons cathet er She states she has some breathing difficulty when this happened but her breathing is fine and currently she is saturating 95% on 4 L oxygen via nasal cannula Patient has chronic peripheral neuropathy with numbness in the lower extremities and weakness and she walks for short distance at baseline and uses a walker if she thinks she needs to but not always She denies smoking alcohol or illicit drugs. On admission she was mildly hypotensive and tachycardic and tachypneic but that is improved now after received several boluses of normal saline more than 3 L. Currently blood pressure on the monitor is 109/87 and heart rate is around 100 Breathing rate is around 18. Patient has been afebrile. Admission labs showed leukocytosis of 15,000, hemoglobin 18, liver enzymes mildly to moderately elevated but BMP is unremarkable except for carbon dioxide low at 50 Lactic acid was significantly elevated more than 6 came back to normal D-dimer is elevated 14.6, CTA of the chest was negative for pulmonary embolism and there is no evidence of consolidation per report, I reviewed the CT scan of the chest by myself and I agree with this finding CT of the abdomen and pelvis was done showing no acute process but rectal tube in the place CT was negative for acute process TSH is 0.5 which is within the reference range Urinalysis showed 2+ protein which is could be due to her acute medical illness EKG showed sinus tachycardia around 116 with right bundle branch block with Chest x-ray showing increased markings when I reviewed myself however radiologist reported as no acute process Blood cultures ordered and is pending Review of Systems Review of systems CONSTITUTIONAL: No fever, no malaise, no fatigue. HEENT: No recent visual problems or hearing problems. Denied any sore throat. CARDIOVASCULAR: No orthopnea, PND, no palpitations, no syncope. PULMONARY: No shortness of breath, no cough, no hemoptysis. GASTROINTESTINAL: As above NEUROLOGICAL: No headaches, no weakness, no numbness. HEMATOLOGICAL: Denies any bleeding or petechiae. GENITOURINARY: Denies any burning micturition, frequency, or urgency. MUSCULOSKELETAL/RHEUMATOLOGICAL: Denies any joint pain, swelling, or any muscle pain. ENDOCRINE: Denies any polyuria or polydipsia. Past Medical History Past Medical History: Diabetes Mellitus, GERD/Reflux, Hypertension, Thyroid Disorder Additional Past Medical History / Comment(s): Pain lower back, IDDM type II, TRAVIS heel spurs, HX Vertigo, SHORTNESS OF BREATH W/ LITTLE ACTIVITY, LOWER BACK PAIN, OCC PALPITATIONS. Aortic Aneurysm for 6 years. Epigastric pain. ortic valve leaking History of Any Multi-Drug Resistant Organisms: None Reported Past Surgical History: Section, Heart Catheterization, Orthopedic Surgery, Tubal Ligation Additional Past Surgical History / Comment(s): Lymph node removal -benign from RT side base of neck, RT INDEX FINGER. COLONOSCOPY, rt heel spur Past Anesthesia/Blood Transfusion Reactions: No Reported Reaction Additional Past Anesthesia/Blood Transfusion Reaction / Comment(s): Pt received blood in past without reaction. Past Psychological History: Anxiety Smoking Status: Former smoker - Past Family History Father Family Medical History: Myocardial Infarction ([place]) Additional Family Medical History / Comment(s): Father at the age of 36 yrs from a [place]. Pt believes the [place] was related to his illness with yellow jaundice. Mother Family Medical History: Cancer, Hypertension Additional Family Medical History / Comment(s): with CA at age 81 Medications and Allergies Home Medications Medication Instructions Recorded Confirmed Type Levothyroxine Sodium 175 mcg PO DAILY 02/19/16 07/05/23 History Metoprolol Tartrate [Lopressor] 25 mg PO BID 10/15/17 07/05/23 History Venlafaxine HCl [Effexor XR] 225 mg PO DAILY 10/15/17 07/05/23 History Celecoxib [CeleBREX] 200 mg PO DAILY 08/13/18 07/05/23 History Atorvastatin Calcium [Lipitor] 20 mg PO HS 01/18/19 07/05/23 History lisinopriL [Zestril] 5 mg PO DAILY 01/01/21 07/05/23 History metFORMIN HCL [Glucophage] 1,000 mg PO BID 01/01/21 07/05/23 History Nitroglycerin Sl Tabs [Nitrostat] 0.4 mg SUBLINGUAL Q5M PRN #30 tab 07/25/22 07/05/23 Rx Pantoprazole Sodium [Protonix] 40 mg PO DAILY #30 tab 07/25/22 07/05/23 Rx amLODIPine [Norvasc] 5 mg PO DAILY #30 tab 07/25/22 07/05/23 Rx Tirzepatide [Mounjaro] 5 mg SQ MO 06/16/23 07/05/23 History Ergocalciferol (Vitamin D2) 1,250 mcg PO Q7D 07/05/23 07/05/23 History [Drisdol (50,000 Iu)] Gabapentin [Neurontin] 100 mg PO TID 07/05/23 07/05/23 History Prochlorperazine [Compazine] 10 mg PO TID-W/MEALS 07/05/23 07/05/23 History Allergies Allergy/AdvReac Type Severity Reaction Status Date / Time codeine Allergy Rash/Hives Verified 07/05/23 17:24 Physical Exam Vitals: Vital Signs Temp Pulse Resp BP Pulse Ox 07/06/23 08:23 96 07/06/23 05:30 104 H 18 120/87 96 07/06/23 01:59 101 H 18 121/65 96 07/05/23 22:34 102 H 18 114/69 97 07/05/23 20:00 97.7 F 105 H 18 117/75 96 07/05/23 19:33 112 H 19 126/82 94 L 07/05/23 18:16 97.4 F L 105 H 20 99/60 96 07/05/23 17:18 99 20 105/60 97 07/05/23 14:56 97.3 F L 116 H 20 98/34 88 L Intake and Output 07/05/23 07/06/23 07/06/23 22:59 06:59 14:59 Output Total 800 Balance -800 Output: Urine 800 Uretheral (Lyons) 800 -GENERAL: The patient is alert and oriented x3, not in any acute distress. Morbidly obese. HEENT: Pupils are round and equally reacting to light. EOMI. No scleral icterus. No conjunctival pallor. Normocephalic, atraumatic. No pharyngeal erythema. No thyromegaly. CARDIOVASCULAR: S1 and S2 present. No murmurs, rubs, or gallops. PULMONARY: Chest is clear to auscultation, no wheezing , no crackles. -ABDOMEN: Soft, nontender, nondistended, normoactive bowel sounds. No palpable organomegaly. Rectal tube and Lyons catheter both in place MUSCULOSKELETAL: No joint swelling or deformity. EXTREMITIES: No cyanosis, clubbing, or pedal edema. NEUROLOGICAL: Gross neurological examination did not reveal any focal deficits. SKIN: No rashes. no petechiae. Results CBC & Chem 7: 07/06/23 07:24 07/05/23 15:13 Labs: Abnormal Lab Results - Last 24 Hours (Table) 07/05/23 07/05/23 07/05/23 Range/Units 15:13 15:13 15:13 WBC 15.7 H (3.8-10.6) k/uL RBC 5.99 H (3.80-5.40) m/uL Hgb 18.0 H (11.4-16.0) gm/dL Hct 55.5 H (34.0-46.0) % Neutrophils # (Manual) 11.60 H (1.3-7.7) k/uL APTT 21.9 L (22.0-30.0) sec D-Dimer 14.65 H (<0.60) mg/L FEU Chloride 109 H (98-107) mmol/L Carbon Dioxide 15 L (22-30) mmol/L Glucose 237 H (74-99) mg/dL Plasma Lactic Acid Jordi (0.7-2.0) mmol/L Phosphorus 7.2 H (2.5-4.5) mg/dL AST 68 H (14-36) U/L ALT 38 H (4-34) U/L Urine Appearance (Clear) Urine Protein (Negative) Urine Glucose (UA) (Negative) Urine Blood (Negative) Urine Bacteria (None) /hpf Urine Mucus (None) /hpf 07/05/23 07/05/23 07/05/23 Range/Units 15:13 15:13 21:00 WBC (3.8-10.6) k/uL RBC (3.80-5.40) m/uL Hgb (11.4-16.0) gm/dL Hct (34.0-46.0) % Neutrophils # (Manual) (1.3-7.7) k/uL APTT (22.0-30.0) sec D-Dimer (<0.60) mg/L FEU Chloride (98-107) mmol/L Carbon Dioxide (22-30) mmol/L Glucose (74-99) mg/dL Plasma Lactic Acid Jordi 6.3 H* 3.6 H* (0.7-2.0) mmol/L Phosphorus (2.5-4.5) mg/dL AST (14-36) U/L ALT (4-34) U/L Urine Appearance Cloudy H (Clear) Urine Protein 2+ H (Negative) Urine Glucose (UA) 2+ H (Negative) Urine Blood Moderate H (Negative) Urine Bacteria Rare H (None) /hpf Urine Mucus Rare H (None) /hpf Assessment and Plan Assessment: Acute diarrheal disease suspicious for acute gastroenteritis with negative CT of the abdomen and pelvis Elevated lactic acid came back to normal. Patient was severely dehydrated and hypotensive and hypovolemic, improving with IV fluid Syncope/presyncope secondary to above Increased leukocytosis with tachycardia and tachypnea this is suspicious for sepsis especially with the view of hypotension and elevated lactic acid Pulmonary hypertension Metabolic encephalopathy secondary to above, improving Elevated D-dimer with negative CTA for pulmonary embolism Diabetes mellitus Plan: Start the patient on Flagyl and Levaquin Start normal saline at 100 mL/h. Hold Norvasc lisinopril and metoprolol for now Continue with insulin sliding scale and a Accu-Chek Add Imodium as needed GI consult. Send stool studies Cardiology already been consulted for tachycardia from emergency room Labs and medication were reviewed.. Continue same treatment. Continue with symptomatic treatment. Resume home medication. Monitor labs and vitals. DVT and GI prophylaxis. Further recommendations as per clinical course of the patient DVT prophylaxis: Subcutaneous heparin GI Prophylaxis: Ppi PT/OT: Pending, deferred Prognosis is guarded
[2023-07-06] MEDS: GABAPENTIN 100 MG CAP PO SCH (09:23)
[2023-07-06] MEDS: LEVOTHYROXINE 88 MCG TAB PO SCH (09:23)
[2023-07-06] MEDS: LOPERAMIDE 2 MG CAP PO STA (09:23)
[2023-07-06] MEDS: VENLAFAXINE HCL ER 75 MG CAP PO SCH (09:23)
[2023-07-06] MEDS: PANTOPRAZOLE 40 MG/10 ML VIAL IV SCH (09:23)
[2023-07-06] MEDS: SODIUM CHLORIDE 0.9% 1,000 ML IV SCH (09:25)
[2023-07-06] MEDS: metroNIDAZOLE-NS PMX 500 MG in SALINE 1 100ML.BAG IVPB SCH (09:25)
--- NOTE | 2023-07-06 09:42 | US ---
EXAMINATION TYPE: US venous doppler duplex LE BI DATE OF EXAM: 07/06/2023 9:10 AM COMPARISON: NONE CLINICAL INDICATION: Female, 63 years old with history of leg swelling; SOB, leg swelling SIDE PERFORMED: Bilateral TECHNIQUE: The lower extremity deep venous system is examined utilizing real time linear array sonog tyrell with graded compression, doppler sonography and color-flow sonography. VESSELS IMAGED: Common Femoral Vein Deep Femoral Vein Greater Saphenous Vein * Femoral Vein Popliteal Vein Small Saphenous Vein * Proximal Calf Veins (* superficial vessels) Right Leg: Negative for DVT Left Leg: Unable to fully compress or obtain blood flow within the left proximal, mid, and distal wilkinson perficial femoral vein. The left common femoral vein and popliteal vein are both compressible and pat ent. IMPRESSION: Superficial vein thrombosis without DVT.
[2023-07-06 09:49] LABS: ALT 32 U/L (4-34); AST 31 U/L (14-36); African American GFR (CKD) >90 (>60 ml/min/1.73 sqM); Albumin 3.5 g/dL (3.5-5.0); Alkaline Phosphatase 75 U/L (38-126); Anion Gap 6 mmol/L; Blood Urea Nitrogen 11 mg/dL (7-17); Calcium 8.4 mg/dL (8.4-10.2); Carbon Dioxide 25 mmol/L (22-30); Chloride 106 mmol/L (98-107); Glucose 123 mg/dL (74-99); Lipase 34 U/L (23-300); Magnesium 1.5 mg/dL (1.6-2.3); Non-African American GFR(CKD) >90 (>60 ml/min/1.73 sqM); Phosphorus 4.3 mg/dL (2.5-4.5); Potassium 4.9 mmol/L (3.5-5.1); Sodium 137 mmol/L (137-145); Total Bilirubin 0.3 mg/dL (0.2-1.3); Total Protein 5.8 g/dL (6.3-8.2)
[2023-07-06] MEDS: LEVOFLOXACIN 500MG-D5W PMX 500 MG in DEXTROSE/WATER 1 100ML.BAG IVPB SCH (10:38)
[2023-07-06 10:46] LABS: C Reactive Protein 6.9 mg/dL (<1.0)
[2023-07-06] MEDS: PROCHLORPERAZINE 10 MG TAB PO SCH (12:00)
--- NOTE | 2023-07-06 12:26 | P.CRDCN ---
History of Present Illness History of present illness: HISTORY OF PRESENT ILLNESS: This is a 63-year-old female with a past medical history significant for hypertension, hyperlipidemia, diabetes, and hypothyroidism. Patient follows in the office with Dr. Chapin. We have been asked to see the patient in consultation for syncope. Patient examined at the bedside in the emergency room. Patient states that she has been having persistent diarrhea. She continues to report diarrhea this morning and has had a fecal tube inserted. The patient states yesterday she began to feel lightheaded and dizzy. She states that her vision became all white and blurry. She reports having a syncopal episode. She believes that she did lose consciousness. At the time of examination, the patient denies any chest pain or pressure. She denies any shortness of breath. DIAGNOSTICS: - EKG reveals sinus tachycardia with right bundle branch block. No signs of acute ischemia.. - Chest xray negative for acute process. -CTA: Negative for pulmonary embolism. Stable dilation of the main pulmonary artery which can be seen with underlying pulmonary hypertension -Venous Doppler: Negative for DVT on the right leg. Left leg unable to fully compress or obtain blood flow within the left proximal mid and distal superficial femoral vein. The left common femoral vein and popliteal vein are both compressible and patent. Impression reveals superficial vein thrombosis without DVT. - Laboratory data: WBC 9.0. Hemoglobin 15.2. Platelet count 303. D-dimer 14 .65. Sodium 137. Potassium 4.9. BUN 11. Creatinine 0.55. Lactic acid 3.6. Repeat 2.0. proBNP 77. Troponin negative x 1. TSH 0.532. - Current home cardiac medications include lisinopril 5 mg daily, amlodipine 5 mg daily, metoprolol tartrate 25 mg twice a day, Lipitor 20 mg at night. - Most recent echocardiogram obtained in July 2022 revealed ejection fraction 55%, mild to moderate MR, aortic sclerosis with mild aortic insufficiency, ascending aortic aneurysm 4.4 cm. - Cardiac catheterization history: August 2018 revealing intermediate disease of the the mid RCA. The disease appeared to be in the range of 40 to 50%. Elevated left ventricular end-diastolic pressure. Medical management was recommended. REVIEW OF SYSTEMS: At the time of my exam: CONSTITUTIONAL: Denies fever or chills. HEENT: Denies blurred vision, vision changes, or eye pain. Denies hemoptysis CARDIOVASCULAR: Denies chest pain. Denies orthopnea. Denies PND. Denies palpitations RESPIRATORY: Denies shortness of breath. GASTROINTESTINAL: Denies abdominal pain. Denies nausea or vomiting. Reports diarrhea. HEMATOLOGIC: Denies bleeding disorders. GENITOURINARY: Denies any blood in urine. SKIN: Denies pruitis. Denies rash. PHYSICAL EXAM: VITAL SIGNS: Reviewed. GENERAL: Well-developed in no acute distress. HEENT: Head is normocephalic. Pupils are equal, round. Sclerae anicteric. Mucous membranes of the mouth are moist. Neck supple. No JVD or thyromegaly LUNGS: Respirations even and unlabored. Lungs essentially clear to auscultation bilaterally. HEART: Regular rate and rhythm. S1 and S2 heard. Systolic murmur. ABDOMEN: Soft. Nondistended. Nontender. EXTREMITIES: Normal range of motion. No clubbing or cyanosis. Peripheral pulses intact. No lower extremity edema NEUROLOGIC: Awake and alert. Oriented x 3. ASSESSMENT: Diarrhea Syncope, likely secondary to hypovolemia due to persistent diarrhea Elevated lactic acid Nonobstructive CAD Superficial vein thrombosis without DVT of left lower extremity Mild to moderate mitral regurgitation Hypertension Hyperlipidemia Diabetes Hypothyroidism PLAN: Obtain 2D echo to assess cardiac structure and function Hold lisinopril and amlodipine secondary to soft blood pressures Resume metoprolol 25 mg twice a day Agree with IV fluid hydration Check orthostatic blood pressures Continue telemetry monitoring to assess for any arrhythmias Further recommendations pending patient course Nurse practitioner note has been reviewed by physician. Signing provider agrees with the documented findings, assessment, and plan of care documented by UNLOADER OPERATOR as a scribe. Past Medical History Past Medical History: Diabetes Mellitus, GERD/Reflux, Hypertension, Thyroid Disorder Additional Past Medical History / Comment(s): Pain lower back, IDDM type II, TRAVIS heel spurs, HX Vertigo, SHORTNESS OF BREATH W/ LITTLE ACTIVITY, LOWER BACK PAIN, OCC PALPITATIONS. Aortic Aneurysm for 6 years. Epigastric pain. ortic valve leaking History of Any Multi-Drug Resistant Organisms: None Reported Past Surgical History: Section, Heart Catheterization, Orthopedic Surgery, Tubal Ligation Additional Past Surgical History / Comment(s): Lymph node removal -benign from RT side base of neck, RT INDEX FINGER. COLONOSCOPY, rt heel spur Past Anesthesia/Blood Transfusion Reactions: No Reported Reaction Additional Past Anesthesia/Blood Transfusion Reaction / Comment(s): Pt received blood in past without reaction. Past Psychological History: Anxiety Smoking Status: Former smoker - Past Family History Father Family Medical History: Myocardial Infarction ([place]) Additional Family Medical History / Comment(s): Father at the age of 36 yrs from a [place]. Pt believes the [place] was related to his illness with yellow jaundice. Mother Family Medical History: Cancer, Hypertension Additional Family Medical History / Comment(s): with [place] at age 81 Medications and Allergies Home Medications Medication Instructions Recorded Confirmed Type Levothyroxine Sodium 175 mcg PO DAILY 02/19/16 07/05/23 History Metoprolol Tartrate [Lopressor] 25 mg PO BID 10/15/17 07/05/23 History Venlafaxine HCl [Effexor XR] 225 mg PO DAILY 10/15/17 07/05/23 History Celecoxib [CeleBREX] 200 mg PO DAILY 08/13/18 07/05/23 History Atorvastatin Calcium [Lipitor] 20 mg PO HS 01/18/19 07/05/23 History lisinopriL [Zestril] 5 mg PO DAILY 01/01/21 07/05/23 History metFORMIN HCL [Glucophage] 1,000 mg PO BID 01/01/21 07/05/23 History Nitroglycerin Sl Tabs [Nitrostat] 0.4 mg SUBLINGUAL Q5M PRN #30 tab 07/25/22 07/05/23 Rx Pantoprazole Sodium [Protonix] 40 mg PO DAILY #30 tab 07/25/22 07/05/23 Rx amLODIPine [Norvasc] 5 mg PO DAILY #30 tab 07/25/22 07/05/23 Rx Tirzepatide [Mounjaro] 5 mg SQ MO 06/16/23 07/05/23 History Ergocalciferol (Vitamin D2) 1,250 mcg PO Q7D 07/05/23 07/05/23 History [Drisdol (50,000 Iu)] Gabapentin [Neurontin] 100 mg PO TID 07/05/23 07/05/23 History Prochlorperazine [Compazine] 10 mg PO TID-W/MEALS 07/05/23 07/05/23 History Allergies Allergy/AdvReac Type Severity Reaction Status Date / Time codeine Allergy Rash/Hives Verified 07/05/23 17:24 Physical Exam Vitals: Vital Signs Temp Pulse Resp BP Pulse Ox 07/06/23 08:23 96 07/06/23 05:30 104 H 18 120/87 96 07/06/23 01:59 101 H 18 121/65 96 07/05/23 22:34 102 H 18 114/69 97 07/05/23 20:00 97.7 F 105 H 18 117/75 96 07/05/23 19:33 112 H 19 126/82 94 L 07/05/23 18:16 97.4 F L 105 H 20 99/60 96 07/05/23 17:18 99 20 105/60 97 07/05/23 14:56 97.3 F L 116 H 20 98/34 88 L Intake and Output 07/05/23 07/06/23 07/06/23 22:59 06:59 14:59 Output Total 800 Balance -800 Output: Urine 800 Uretheral (Lyons) 800 Results 07/06/23 07:24 07/06/23 07:51 Cardiac Enzymes 07/05/23 07/05/23 Range/Units 15:13 15:13 AST 68 H (14-36) U/L Troponin I <0.012 (0.000-0.034) ng/mL Coagulation 07/05/23 Range/Units 15:13 PT 11.6 (10.0-12.5) sec APTT 21.9 L (22.0-30.0) sec CBC 07/05/23 07/06/23 Range/Units 15:13 07:24 WBC 15.7 H 9.0 (3.8-10.6) k/uL RBC 5.99 H 4.98 (3.80-5.40) m/uL Hgb 18.0 H 15.2 (11.4-16.0) gm/dL Hct 55.5 H 45.5 (34.0-46.0) % Plt Count UNLOADER OPERATOR 303 Comprehensive Metabolic Panel 07/05/23 Range/Units 15:13 Sodium 140 (137-145) mmol/L Potassium 5.1 (3.5-5.1) mmol/L Chloride 109 H (98-107) mmol/L Carbon Dioxide 15 L (22-30) mmol/L BUN 14 (7-17) mg/dL Creatinine 0.71 (0.52-1.04) mg/dL Glucose 237 H (74-99) mg/dL Calcium 9.3 (8.4-10.2) mg/dL AST 68 H (14-36) U/L ALT 38 H (4-34) U/L Alkaline Phosphatase 110 (38-126) U/L Total Protein 7.0 (6.3-8.2) g/dL Albumin 4.2 (3.5-5.0) g/dL Current Medications Generic Name Dose Route Start Last Admin Trade Name Freq PRN Reason Stop Dose Admin Gabapentin 100 mg 07/06/23 09:00 Gabapentin 100 Mg Cap PO TID [facility] Metronidazole 500 mg/ IV 100 mls @ 100 mls/hr 07/06/23 09:00 Solution IVPB Q8HR RAMU Protocol Levofloxacin 500 mg/ IV 100 mls @ 100 mls/hr 07/06/23 09:30 Solution IVPB Q24HR [facility] Protocol Sodium Chloride 1,000 mls @ 100 mls/hr 07/06/23 08:45 Saline 0.9% IV .Q10H [facility] Levothyroxine Sodium 176 mcg 07/06/23 09:00 Levothyroxine 88 Mcg Tab PO DAILY@0630 [facility] Loperamide HCl 2 mg 07/06/23 08:41 Loperamide 2 Mg Cap PO QID PRN Diarrhea Morphine Sulfate 4 mg 07/05/23 18:08 Morphine Sulfate 4 Mg/Ml Syringe IV Q4HR PRN Severe Pain (Scale 7 to 10) Naloxone HCl 0.2 mg 07/05/23 18:08 Naloxone 0.4 Mg/Ml 1 Ml Vial IV Q2M PRN Opioid Reversal Nitroglycerin 0.4 mg 07/06/23 08:37 Nitroglycerin Sl Tabs 0.4 Mg Tab SUBLINGUAL Q5M PRN Chest Pain Pantoprazole Sodium 40 mg 07/06/23 09:00 Pantoprazole 40 Mg/10 Ml Vial IV DAILY [facility] Prochlorperazine Maleate 10 mg 07/06/23 12:30 Prochlorperazine 10 Mg Tab PO TID-W/MEALS [facility] Venlafaxine HCl 225 mg 07/06/23 09:00 Venlafaxine Hcl Er 75 Mg Cap PO DAILY [facility] Intake and Output 07/05/23 07/06/23 07/06/23 22:59 06:59 14:59 Output Total 800 Balance -800 Output: Urine 800 Uretheral (Lyons) 800 07/06/23 07:24 07/05/23 15:13
[2023-07-06] MEDS: METOPROLOL TARTRATE 25 MG TAB PO SCH (12:36)
--- NOTE | 2023-07-06 18:34 | CA ---
Transthoracic Echo Report Name: Evangelina Correa Age: 63 Gender: F : 1960 Exam Date: 07/06/2023 15:35 Exam Location: [place] [facility] Ht (in): 65 Wt (lb): 230 Ordering Physician: Jazmin Farias Attending/Referring Phys: [id number], Jarrett Bulker Jessica Ventura RDCS Procedure CPT: Indications: LV function Cardiac Hx: Technical Quality: Fair Contrast 1: Total Dose (mL): Contrast 2: Total Dose (mL): MEASUREMENTS (Male / Female) Normal Values 2D ECHO LV Diastolic Diameter PLAX 5.6 cm 4.2 - 5.9 / 3.9 - 5.3 cm LV Systolic Diameter PLAX 3.8 cm IVS Diastolic Thickness 1.5 cm 0.6 - 1.0 / 0.6 - 0.9 cm LVPW Diastolic Thickness 1.3 cm 0.6 - 1.0 / 0.6 - 0.9 cm LV Relative Wall Thickness 0.5 RV Internal Dim ED PLAX 3.7 cm LA Volume 51.0 cm??? 18 - 58 / 22 - 52 cm??? LA Volume Index 22.8 cm???/m??? 16 - 28 cm???/m??? M-MODE Aortic Root Diameter MM 4.3 cm AV Cusp Separation MM 2.1 cm DOPPLER AV Peak Velocity 156.9 cm/s AV Peak Gradient 9.8 mmHg AV Mean Velocity 109.5 cm/s AV Mean Gradient 5.3 mmHg AV Velocity Time Integral 30.4 cm LVOT Peak Velocity 145.1 cm/s LVOT Peak Gradient 8.4 mmHg LVOT Velocity Time Integral 30.2 cm MV Area PHT 3.4 cm??? Mitral E Point Velocity 77.0 cm/s Mitral A Point Velocity 124.3 cm/s Mitral E to A Ratio 0.6 MV Deceleration Time 225.3 ms MV E' Velocity 4.9 cm/s Mitral E to MV E' Ratio 15.7 FINDINGS Left Ventricle Moderately increased left ventricular wall thickness. No obvious regional wall motion abnormalities. Left ventricular ejection fraction is estimated at 55 %. Right Ventricle Mild right ventricular dilatation. Right ventricular systolic pressure within normal limits. Right Atrium Normal right atrial size. Left Atrium Normal left atrial size. Probable patent foramen ovale. Interatrial septal aneurysm. Mitral Valve Structurally normal mitral valve. Mild mitral regurgitation. Aortic Valve Trileaflet aortic valve. No aortic valve stenosis or regurgitation. Tricuspid Valve Structurally normal tricuspid valve. Mild tricuspid regurgitation. Pulmonic Valve Structurally normal pulmonic valve. Trace pulmonic regurgitation. Pericardium No pericardial effusion. Aorta Normal size aortic root and proximal ascending aorta. CONCLUSIONS Normal LV function Aneurysmal interatrial septum Mild mitral and tricuspid regurgitation Previewed by: Dr. Juan C Haddad MD (Electronically Signed) Final Date: 06 July 2023 18:33
[2023-07-06] MEDS: ATORVASTATIN 20 MG TAB PO SCH (21:40)
[2023-07-06] MEDS: ALPRAZolam 0.5 MG TAB PO PRN (21:40)
--- NOTE | 2023-07-07 08:22 | P.PN ---
Subjective Patient is a pleasant 63 years old female with past medical history of GERD, diabetes mellitus, hypertension, hypothyroidism, celiac disease. Had colonoscopy with Dr. Mcfadden about 2 weeks ago for screening for cancer as per patient Yesterday she was sitting in bed watching TV when she felt sudden was going on and urge to have a bowel movement, however on her way to the restroom she felt dizzy and almost passed out as per patient and per documentation patient did pass out. Also states that her blood pressure was significantly low when her checked her blood pressure but she cannot recall the numbers Since this happened she has been having continuous diarrhea and rectal tube has been placed. And there is about 200 cc of light brown stool and the rectal bag. Patient had abdominal cramps all overnight about 9/10 in the lower abdomen associated with her bowel movements, nonradiating Patient feels very nauseated but she did not throw up She denies urinary complaint no dysuria or urgency, currently has a Lyons catheter She states she has some breathing difficulty when this happened but her breathing is fine and currently she is saturating 95% on 4 L oxygen via nasal cannula Patient has chronic peripheral neuropathy with numbness in the lower extremities and weakness and she walks for short distance at baseline and uses a walker if she thinks she needs to but not always She denies smoking alcohol or illicit drugs. On admission she was mildly hypotensive and tachycardic and tachypneic but that is improved now after received several boluses of normal saline more than 3 L. Currently blood pressure on the monitor is 109/87 and heart rate is around 100 Breathing rate is around 18. Patient has been afebrile. Admission labs showed leukocytosis of 15,000, hemoglobin 18, liver enzymes mildly to moderately elevated but BMP is unremarkable except for carbon dioxide low at 50 Lactic acid was significantly elevated more than 6 came back to normal D-dimer is elevated 14.6, CTA of the chest was negative for pulmonary embolism and there is no evidence of consolidation per report, I reviewed the CT scan of the chest by myself and I agree with this finding CT of the abdomen and pelvis was done showing no acute process but rectal tube in the place CT was negative for acute process TSH is 0.5 which is within the reference range Urinalysis showed 2+ protein which is could be due to her acute medical illness EKG showed sinus tachycardia around 116 with right bundle branch block with Chest x-ray showing increased markings when I reviewed myself however radiologist reported as no acute process Blood cultures ordered and is pending 07/07/2023 Patient reports improvement today, her mentation is at baseline she does not lo ok in distress lying in bed on the side. She is morbidly obese with rectal tube in place, however she states that her diarrhea is improving and she wants her rectal tube to be taken out. This tube was placed in the emergency room when she first came in because of her severe diarrhea. Her lower abdominal cramps also resolved. She states she is eating well but She still feels generally weak and hard for her to get up without limb of arm/leg weakness or numbness. She has mild headache but no other neurological deficit. No chest pain. Patient looks hemodynamically stable on arrival. Also labs are showing improvement with WBC back to normal at 9000, hemoglobin 15. Liver enzymes back to normal Blood cultures still pending, stool studies still pending ProCalcitonin was significantly elevated 4.4. Patient is on Flagyl and Levaquin and Normal Saline at 50 mL/h Review of systems CONSTITUTIONAL: No fever, no malaise, no fatigue. HEENT: No recent visual problems or hearing problems. Denied any sore throat. CARDIOVASCULAR: No orthopnea, PND, no palpitations, no syncope. PULMONARY: No shortness of breath, no cough, no hemoptysis. GASTROINTESTINAL: No diarrhea, no nausea, no vomiting, no abdominal pain. Normoactive bowel sounds. NEUROLOGICAL: No headaches, no weakness, no numbness. Active Medications Generic Name Dose Route Start Last Admin Trade Name Freq PRN Reason Stop Dose Admin Alprazolam 0.5 mg 07/06/23 20:26 07/06/23 21:40 Alprazolam 0.5 Mg Tab PO 0.5 mg BID PRN Administration Anxiety Atorvastatin Calcium 20 mg 07/06/23 21:00 07/06/23 21:40 Atorvastatin 20 Mg Tab PO 20 mg HS RAMU Administration Gabapentin 100 mg 07/06/23 09:07/06/23 21:40 Gabapentin 100 Mg Cap PO 100 mg TID RAMU Administration Metronidazole 500 mg/ IV 100 mls @ 100 mls/hr 07/06/23 09:00 07/06/23 23:51 Solution IVPB 100 mls/hr Q8HR RAMU Administration Protocol Levofloxacin 500 mg/ IV 100 mls @ 100 mls/hr 07/06/23 09:30 07/06/23 10:38 Solution IVPB 100 mls/hr Q24HR RAMU Administration Protocol Sodium Chloride 1,000 mls @ 100 mls/hr 07/06/23 08:45 07/07/23 06:49 Saline 0.9% IV Not Given .Q10H RAMU Levothyroxine Sodium 176 mcg 07/06/23 09:00 07/07/23 06:57 Levothyroxine 88 Mcg Tab PO 176 mcg DAILY@0630 RAMU Administration Loperamide HCl 2 mg 07/06/23 08:41 Loperamide 2 Mg Cap PO QID PRN Diarrhea Metoprolol Tartrate 25 mg 07/06/23 12:30 07/06/23 21:40 Metoprolol Tartrate 25 Mg Tab PO 25 mg BID RAMU Administration Morphine Sulfate 4 mg 07/05/23 18:08 Morphine Sulfate 4 Mg/Ml Syringe IV Q4HR PRN Severe Pain (Scale 7 to 10) Naloxone HCl 0.2 mg 07/05/23 18:08 Naloxone 0.4 Mg/Ml 1 Ml Vial IV Q2M PRN Opioid Reversal Nitroglycerin 0.4 mg 07/06/23 08:37 Nitroglycerin Sl Tabs 0.4 Mg Tab SUBLINGUAL Q5M PRN Chest Pain Pantoprazole Sodium 40 mg 07/06/23 09:00 07/06/23 09:23 Pantoprazole 40 Mg/10 Ml Vial IV 40 mg DAILY RAMU Administration Prochlorperazine Maleate 10 mg 07/06/23 12:30 07/06/23 15:58 Prochlorperazine 10 Mg Tab PO 10 mg TID-W/MEALS RAMU Administration Venlafaxine HCl 225 mg 07/06/23 09:00 07/06/23 09:23 Venlafaxine Hcl Er 75 Mg Cap PO 225 mg DAILY RAMU Administration Objective - Vital Signs Vital signs: Vital Signs Temp 98.2 F 07/06/23 20:00 Pulse 91 07/07/23 04:00 Resp 18 07/07/23 04:00 BP 126/77 07/07/23 04:00 Pulse Ox 94 L 07/07/23 04:00 FiO2 Intake & Output 07/06/23 07/07/23 07/07/23 18:59 06:59 18:59 Output Total 3000 2900 900 Balance -3000 -2900 -900 Output: Urine 3000 2900 900 Other: Voiding Method Indwelling Catheter Indwelling Catheter - Exam -GENERAL: The patient is alert and oriented x3, not in any acute distress. Well morbidly obese, generally weak HEENT: Pupils are round and equally reacting to light. EOMI. No scleral icterus. No conjunctival pallor. Normocephalic, atraumatic. No pharyngeal erythema. No thyromegaly. CARDIOVASCULAR: S1 and S2 present. No murmurs, rubs, or gallops. PULMONARY: Chest is clear to auscultation, no wheezing , no crackles. ABDOMEN: Soft, nontender, nondistended, normoactive bowel sounds. No palpable organomegaly. MUSCULOSKELETAL: No joint swelling or deformity. EXTREMITIES: No cyanosis, clubbing, or pedal edema. NEUROLOGICAL: Gross neurological examination did not reveal any focal deficits. SKIN: No rashes. no petechiae. - Labs CBC & Chem 7: 07/06/23 07:24 07/06/23 07:51 Labs: Abnormal Lab Results - Last 24 Hours (Table) 07/06/23 07/06/23 Range/Units 07:51 07:51 Glucose 123 H (74-99) mg/dL Magnesium 1.5 L (1.6-2.3) mg/dL C-Reactive Protein 6.9 H (<1.0) mg/dL Total Protein 5.8 L (6.3-8.2) g/dL Procalcitonin 4.41 H (0.02-0.09) ng/mL Assessment and Plan Assessment: Acute diarrheal disease suspicious for acute gastroenteritis with negative CT of the abdomen and pelvis Elevated lactic acid came back to normal. Patient was severely dehydrated and hypotensive and hypovolemic, improving with IV fluid Syncope/presyncope secondary to above Increased leukocytosis with tachycardia and tachypnea this is suspicious for sepsis especially with the view of hypotension and elevated lactic acid Pulmonary hypertension Metabolic encephalopathy secondary to above, improving Elevated D-dimer with negative CTA for pulmonary embolism Diabetes mellitus Plan: Start the patient on Flagyl and Levaquin Start normal saline at 50 mL/h. Hold Norvasc lisinopril and metoprolol for now Continue with insulin sliding scale and a Accu-Chek Add Imodium as needed GI consult. There is no GI coverage at this facility during this week Send stool studies Cardiology already been consulted for tachycardia from emergency room Labs and medication were reviewed.. Continue same treatment. Continue with symptomatic treatment. Resume home medication. Monitor labs and vitals. DVT and GI prophylaxis. Further recommendations as per clinical course of the patient DVT prophylaxis: Subcutaneous heparin GI Prophylaxis: Ppi PT/OT: Pending, deferred Prognosis is guarded
--- NOTE | 2023-07-07 11:58 | P.PN ---
Subjective HISTORY OF PRESENT ILLNESS: This is a 63-year-old female with a past medical history significant for hypertension, hyperlipidemia, diabetes, and hypothyroidism. Patient follows in the office with Dr. Chapin. We have been asked to see the patient in consultation for syncope. Patient examined at the bedside in the emergency room. Patient states that she has been having persistent diarrhea. She continues to report diarrhea this morning and has had a fecal tube inserted. The patient states yesterday she began to feel lightheaded and dizzy. She states that her vision became all white and blurry. She reports having a syncopal episode. She believes that she did lose consciousness. At the time of examination, the patient denies any chest pain or pressure. She denies any shortness of breath. DIAGNOSTICS: - EKG reveals sinus tachycardia with right bundle branch block. No signs of acute ischemia.. - Chest xray negative for acute process. -CTA: Negative for pulmonary embolism. Stable dilation of the main pulmonary artery which can be seen with underlying pulmonary hypertension -Venous Doppler: Negative for DVT on the right leg. Left leg unable to fully compress or obtain blood flow within the left proximal mid and distal superf icial femoral vein. The left common femoral vein and popliteal vein are both compressible and patent. Impression reveals superficial vein thrombosis without DVT. - Laboratory data: WBC 9.0. Hemoglobin 15.2. Platelet count 303. D-dimer 14.65. Sodium 137. Potassium 4.9. BUN 11. Creatinine 0.55. Lactic acid 3.6. Repeat 2.0. proBNP 77. Troponin negative x 1. TSH 0.532. - Current home cardiac medications include lisinopril 5 mg daily, amlodipine 5 mg daily, metoprolol tartrate 25 mg twice a day, Lipitor 20 mg at night. - Most recent echocardiogram obtained in July 2022 revealed ejection fraction 55%, mild to moderate MR, aortic sclerosis with mild aortic insufficiency, ascending aortic aneurysm 4.4 cm. - Cardiac catheterization history: August 2018 revealing intermediate disease of the the mid RCA. The disease appeared to be in the range of 40 to 50%. Elevated left ventricular end-diastolic pressure. Medical management was recommended. 07/07/2023 Patient examined this morning at the bedside. Patient denies chest pain or pressure. She denies shortness of breath. She reports improvement in her diarrhea and has been able to tolerate oral intake. She also reports improve ment in her dizziness. Echocardiogram completed revealing ejection fraction 55% with mild MR, mild TR, and aneurysmal intra-atrial septum. Vital signs are stable. PHYSICAL EXAM: VITAL SIGNS: Reviewed. GENERAL: Well-developed in no acute distress. HEENT: Head is normocephalic. Pupils are equal, round. Sclerae anicteric. Mucous membranes of the mouth are moist. Neck supple. No JVD or thyromegaly LUNGS: Respirations even and unlabored. Lungs essentially clear to auscultation bilaterally. HEART: Regular rate and rhythm. S1 and S2 heard. Systolic murmur. ABDOMEN: Soft. Nondistended. Nontender. EXTREMITIES: Normal range of motion. No clubbing or cyanosis. Peripheral pulses intact. No lower extremity edema NEUROLOGIC: Awake and alert. Oriented x 3. ASSESSMENT: Diarrhea Syncope, possible vasovagal Hypovolemia due to persistent diarrhea Elevated lactic acid Nonobstructive CAD Superficial vein thrombosis without DVT of left lower extremity Mild to moderate mitral regurgitation Hypertension Hyperlipidemia Diabetes Hypothyroidism PLAN: Patient may resume lisinopril and amlodipine upon discharge if patient's blood pressures remain stable Patient is currently stable from a cardiac standpoint with no further inpatient recommendations We will sign off. Please reconsult if needed. Nurse practitioner note has been reviewed by physician. Signing provider agrees with the documented findings, assessment, and plan of care documented by [employer] as a scribe. Objective - Vital Signs Vital signs: Vital Signs Temp 98.2 F 07/07/23 08:00 Pulse 93 07/07/23 08:00 Resp 18 07/07/23 08:00 BP 133/77 07/07/23 08:00 Pulse Ox 94 L 07/07/23 08:00 FiO2 Intake & Output 07/06/23 07/07/23 07/07/23 18:59 06:59 18:59 Output Total 3000 2900 900 Balance -3000 -2900 -900 Output: Urine 3000 2900 900 Other: Voiding Method Indwelling Catheter Indwelling Catheter Indwelling Catheter - Labs CBC & Chem 7: 07/06/23 07:24 07/06/23 07:51 Labs: Abnormal Lab Results - Last 24 Hours (Table) 07/06/23 Range/Units 07:51 Procalcitonin 4.41 H (0.02-0.09) ng/mL
[2023-07-07 16:11] LABS: Basophils # (A) 0.1 k/uL (0-0.2); Basophils % (A) 1 %; Eosinophils # (A) 0.4 k/uL (0-0.7); Eosinophils % (A) 5 %; HCT 37.5 % (34.0-46.0); HGB 12.5 gm/dL (11.4-16.0); Lymphocytes # (A) 2.3 k/uL (1.0-4.8); Lymphocytes % (A) 30 %; MCH 30.6 pg (25.0-35.0); MCHC 33.4 g/dL (31.0-37.0); MCV 91.5 fL (80.0-100.0); Mean Platelet Volume 9.1; Monocytes # (A) 0.4 k/uL (0-1.0); Monocytes % (A) 5 %; Neutrophils # (A) 4.4 k/uL (1.3-7.7); Neutrophils % (A) 57 %; Platelet Count 228 k/uL (150-450); RDW 13.7 % (11.5-15.5); WBC 7.7 k/uL (3.8-10.6)
[2023-07-07 16:52] LABS: African American GFR (CKD) >90 (>60 ml/min/1.73 sqM); Anion Gap 3 mmol/L; Blood Urea Nitrogen 5 mg/dL (7-17); Calcium 9.2 mg/dL (8.4-10.2); Carbon Dioxide 32 mmol/L (22-30); Chloride 104 mmol/L (98-107); Glucose 110 mg/dL (74-99); Magnesium 1.6 mg/dL (1.6-2.3); Non-African American GFR(CKD) >90 (>60 ml/min/1.73 sqM); Potassium 4.2 mmol/L (3.5-5.1); Sodium 139 mmol/L (137-145)
[2023-07-07 17:20] LABS: Glucose,Whole Blood 104 mg/dL (70-110)
[2023-07-07] MEDS: INSULIN ASPART (NovoLOG) 100 UNIT/ML VIAL SQ SCH (17:20)
[2023-07-07 20:25] LABS: Glucose,Whole Blood 104 mg/dL (70-110)
[2023-07-08 06:07] LABS: Glucose,Whole Blood 120 mg/dL (70-110)
[2023-07-08 08:40] VITALS: BMI 38.2
[2023-07-08 11:48] LABS: Glucose,Whole Blood 72 mg/dL (70-110)
[2023-07-08] MEDS: NYSTATIN 100,000UNIT/GM CREAM 30 GM TUBE TOPICAL SCH (15:38)
[2023-07-08 16:32] LABS: Glucose,Whole Blood 108 mg/dL (70-110)
--- NOTE | 2023-07-08 19:34 | P.PN ---
Subjective Patient is a pleasant 63 years old female with past medical history of GERD, diabetes mellitus, hypertension, hypothyroidism, celiac disease. Had colonoscopy with Dr. Mcfadden about 2 weeks ago for screening for cancer as per patient Yesterday she was sitting in bed watching TV when she felt sudden was going on and urge to have a bowel movement, however on her way to the restroom she felt dizzy and almost passed out as per patient and per documentation patient did pass out. Also states that her blood pressure was significantly low when her checked her blood pressure but she cannot recall the numbers Since this happened she has been having continuous diarrhea and rectal tube has been placed. And there is about 200 cc of light brown stool and the rectal bag. Patient had abdominal cramps all overnight about 9/10 in the lower abdomen associated with her bowel movements, nonradiating Patient feels very nauseated but she did not throw up She denies urinary complaint no dysuria or urgency, currently has a Lyons catheter She states she has some breathing difficulty when this happened but her breathing is fine and currently she is saturating 95% on 4 L oxygen via nasal cannula Patient has chronic peripheral neuropathy with numbness in the lower extremities and weakness and she walks for short distance at baseline and uses a walker if she thinks she needs to but not always She denies smoking alcohol or illicit drugs. On admission she was mildly hypotensive and tachycardic and tachypneic but that is improved now after received several boluses of normal saline more than 3 L. Currently blood pressure on the monitor is 109/87 and heart rate is around 100 Breathing rate is around 18. Patient has been afebrile. Admission labs showed leukocytosis of 15,000, hemoglobin 18, liver enzymes mildly to moderately elevated but BMP is unremarkable except for carbon dioxide low at 50 Lactic acid was significantly elevated more than 6 came back to normal D-dimer is elevated 14.6, CTA of the chest was negative for pulmonary embolism and there is no evidence of consolidation per report, I reviewed the CT scan of the chest by myself and I agree with this finding CT of the abdomen and pelvis was done showing no acute process but rectal tube in the place CT was negative for acute process TSH is 0.5 which is within the reference range Urinalysis showed 2+ protein which is could be due to her acute medical illness EKG showed sinus tachycardia around 116 with right bundle branch block with Chest x-ray showing increased markings when I reviewed myself however radiologist reported as no acute process Blood cultures ordered and is pending 07/07/2023 Patient reports improvement today, her mentation is at baseline she does not lo ok in distress lying in bed on the side. She is morbidly obese with rectal tube in place, however she states that her diarrhea is improving and she wants her rectal tube to be taken out. This tube was placed in the emergency room when she first came in because of her severe diarrhea. Her lower abdominal cramps also resolved. She states she is eating well but She still feels generally weak and hard for her to get up without limb of arm/leg weakness or numbness. She has mild headache but no other neurological deficit. No chest pain. Patient looks hemodynamically stable on arrival. Also labs are showing improvement with WBC back to normal at 9000, hemoglobin 15. Liver enzymes back to normal Blood cultures still pending, stool studies still pending ProCalcitonin was significantly elevated 4.4. Patient is on Flagyl and Levaquin and Normal Saline at 50 mL/h 07/08/2023 Patient improving clinically, her diarrhea feels better no abdominal pain, she tolerates diet with. Her tachycardia and tachypnea have resolved. Her hypotension has resolved. Patient may be consider resuming her Norvasc and lisinopril upon discharge based on her blood pressure. Patient is afebrile. Leukocytosis resolved. Liver enzymes came back to normal level. C. difficile is negative. Blood culture showing no growth after 48 hours. Stool culture was not collected. Also patient reports improving diarrhea. ProCalcitonin was high 4.4. Repeat level is pending. Patient continues on Flagyl and Levaquin Objective - Vital Signs Vital signs: Vital Signs Temp 97.9 F 07/08/23 12:02 Pulse 71 07/08/23 12:02 Resp 17 07/08/23 12:43 BP 152/88 07/08/23 12:02 Pulse Ox 97 07/08/23 12:02 FiO2 Intake & Output 07/07/23 07/08/23 07/08/23 18:59 06:59 18:59 Intake Total 240 Output Total 5600 2500 Balance -5600 -2500 240 Weight 104.326 kg 104.326 kg Intake: Oral 240 Output: Urine 5200 2500 Uretheral (Lyons) 900 800 Stool 400 Other: Voiding Method Indwelling Catheter Indwelling Catheter Toilet - Exam -GENERAL: The patient is alert and oriented x3, not in any acute distress. Well morbidly obese, generally weak HEENT: Pupils are round and equally reacting to light. EOMI. No scleral icterus. No conjunctival pallor. Normocephalic, atraumatic. No pharyngeal erythema. No thyromegaly. CARDIOVASCULAR: S1 and S2 present. No murmurs, rubs, or gallops. PULMONARY: Chest is clear to auscultation, no wheezing , no crackles. ABDOMEN: Soft, nontender, nondistended, normoactive bowel sounds. No palpable organomegaly. MUSCULOSKELETAL: No joint swelling or deformity. EXTREMITIES: No cyanosis, clubbing, or pedal edema. NEUROLOGICAL: Gross neurological examination did not reveal any focal deficits. SKIN: No rashes. no petechiae. - Labs CBC & Chem 7: 07/07/23 15:37 07/07/23 15:37 Labs: Abnormal Lab Results - Last 24 Hours (Table) 07/07/23 07/08/23 Range/Units 15:37 06:06 Carbon Dioxide 32 H (22-30) mmol/L BUN 5 L (7-17) mg/dL Glucose 110 H (74-99) mg/dL POC Glucose (mg/dL) 120 H (70-110) mg/dL Microbiology - Last 24 Hours (Table) 07/06/23 07:24 Blood Culture - Preliminary Blood Assessment and Plan Assessment: Acute diarrheal disease suspicious for acute gastroenteritis with negative CT of the abdomen and pelvis Elevated lactic acid came back to normal. Patient was severely dehydrated and hypotensive and hypovolemic, improving with IV fluid Syncope/presyncope secondary to above Increased leukocytosis with tachycardia and tachypnea this is suspicious for sepsis especially with the view of hypotension and elevated lactic acid Pulmonary hypertension Metabolic encephalopathy secondary to above, improving Elevated D-dimer with negative CTA for pulmonary embolism Diabetes mellitus Plan: Start the patient on Flagyl and Levaquin Start normal saline at 50 mL/h. Hold Norvasc lisinopril and metoprolol for now Continue with insulin sliding scale and a Accu-Chek Add Imodium as needed GI consult. There is no GI coverage at this facility during this week Send stool studies Cardiology already been consulted for tachycardia from emergency room Labs and medication were reviewed.. Continue same treatment. Continue with symptomatic treatment. Resume home medication. Monitor labs and vitals. DVT and GI prophylaxis. Further recommendations as per clinical course of the patient DVT prophylaxis: Subcutaneous heparin GI Prophylaxis: Ppi PT/OT: Pending, deferred Prognosis is guarded
[2023-07-08 20:02] LABS: Glucose,Whole Blood 136 mg/dL (70-110)
[2023-07-09 06:06] LABS: Glucose,Whole Blood 119 mg/dL (70-110)
[2023-07-09 06:43] VITALS: PULSE 72
[2023-07-09 09:03] VITALS: BP 123/81; RESP 16; TEMP 97.8
[2023-07-09 11:51] LABS: Glucose,Whole Blood 69 mg/dL (70-110)
[2023-07-09 12:02] LABS: Glucose,Whole Blood 69 mg/dL (70-110)
[2023-07-09 12:25] LABS: Glucose,Whole Blood 89 mg/dL (70-110)
--- NOTE | 2023-07-09 14:21 | CDI ---
Documentation Clarification Form Date: 07/09/2023 02:19:01 PM From: Marianna Cortez RN, CCDS Email: [email or web address] Admit Date: 07/05/2023 06:08:00 PM Patient Name: Evangelina Correa Visit Number: [id number] Discharge Date: 07/09/2023 12:31:00 PM ATTENTION: The Clinical Documentation Specialists (CDI) and [facility] Coding Staff appreciate your assistance in clarifying documentation. Please respond to the clarification below the line at the bottom and electronically sign. The CDI & [facility] Coding staff will review the response and follow-up if needed. Please note: Queries are made part of the Legal Health Record. If you have any questions, please contact the author of this message via ITS. Dr. Miller E Sheet "Suspicious for sepsis" is documented in the H&P and 07/06-07/07 progress notes. Clarification is requested. History/Risk Factors: GERD, DM, HTN, hypothyroid and celiac disease. Presented with weakness, diarrhea, dizziness and lightheadedness. Admitted with acute gastroenteritis. Clinical Indicators: H&P: "Increased leukocytosis with tachycardia and tachypnea, this is suspicious for sepsis especially in view of hypotension and elevated lactic acid." 07/04-07/05 Lactic acid: 6.3-3.6-2.0 07/04 WBC 15.7 07/05 CRP: 6.9 07/05 Procalcitonin: 4.41 07/04 vital signs: HR 116, BP 98/34, pox 88% Treatment: 4L 0.9 NS IV bolus on 07/04; IV Flagyl 500mg Q8H 07/05-07/08; IV Levaquin 500mg Q24H 07/05-07/08 Please clarify if the Sepsis was: [ x] Sepsis confirmed, resolved, leukocytosis, tachycarda and tachypnia [ ] Sepsis ruled out [ ] Other condition, please specify [ ] Unable to determine MTDD
--- NOTE | 2023-07-10 06:42 | P.DS ---
Providers Date of admission: 07/05/23 18:08 Attending physician: James Durant Primary care physician: Tello Leiva Hospital Course: Date of service for this note is 07/09/2023. Patient seen and examined by me at bedside Diagnoses: Acute diarrheal disease suspicious for acute gastroenteritis with negative CT of the abdomen and pelvis Elevated lactic acid came back to normal. Patient was severely dehydrated and hypotensive and hypovolemic, improving with IV fluid Syncope/presyncope secondary to above Increased leukocytosis with tachycardia and tachypnea this is suspicious for sepsis especially with the view of hypotension and elevated lactic acid Pulmonary hypertension Metabolic encephalopathy secondary to above, improving Elevated D-dimer with negative CTA for pulmonary embolism Diabetes mellitus Hospital course: Patient is a pleasant 63 years old female with past medical history of GERD, diabetes mellitus, hypertension, hypothyroidism, celiac disease. Had colonoscopy with Dr. Mcfaddne about 2 weeks ago for screening for cancer as per patient Yesterday she was sitting in bed watching TV when she felt sudden was going on and urge to have a bowel movement, patient presents with profuse diarrhea suspicious for acute gastroenteritis. CT of the abdomen pelvis is negative for acute process. Patient was admitted to the hospital and treated with aggressive IV hydration send antibiotics with Flagyl and Levaquin. Her proCalcitonin was significantly elevated at 4.4. With treatment has shown significant decline to 1.17. Patient also has evidence of sepsis with leukocytosis, tachycardia tachypnea hypotension on presentation. Always improved with IV fluid and antibiotic On the day of discharge she was fully awake and oriented, denies abdominal pain or tenderness. Tolerates diet well with no vomiting. And she has regular bowel movement. Upon discharge she told me she feels better than her normal self and she was very happy with the progress in her health. Patient denies any other new complaint and agrees to go home today. Patient has been evaluated by underground heavy equipment operator for syncope which is most likely related to her dehydration on presentation. No further workup per underground heavy equipment operator Patient will be discharged on short course of oral antibiotic Flagyl and Levaquin Problems and management plan were discussed with the patient and he verbalized understanding and acceptance Patient was found stable and can be discharged home in guarded prognosis however he needs follow-up as an outpatient. Patient was instructed to follow up with PCP Dr. Leiva within one week and patient agrees Patient was instructed to follow-up with her underground heavy equipment operator Dr. Zuleta in 1 to 2 weeks and she agrees Physical exam Gen: patient is a AAOx3, no distress CVS: S1-S2, RRR, no murmur Lungs: B/L CTA, no wheezing Abdomen: soft, no distention, no tenderness, positive bowel sounds Extremity: no leg edema or induration Time spent more than 35 minutes Patient Condition at Discharge: Serious Plan - Discharge Summary Discharge Rx Participant: No New Discharge Prescriptions: New metroNIDAZOLE [Flagyl] 500 mg PO TID 7 Days #21 tab Levofloxacin [Levaquin] 500 mg PO DAILY 7 Days #7 tab Continue Levothyroxine Sodium 175 mcg PO DAILY Metoprolol Tartrate [Lopressor] 25 mg PO BID Venlafaxine HCl [Effexor XR] 225 mg PO DAILY Atorvastatin Calcium [Lipitor] 20 mg PO HS lisinopriL [Zestril] 5 mg PO DAILY metFORMIN HCL [Glucophage] 1,000 mg PO BID Nitroglycerin Sl Tabs [Nitrostat] 0.4 mg SUBLINGUAL Q5M PRN #30 tab PRN Reason: Chest Pain Tirzepatide [Mounjaro] 5 mg SQ MO Gabapentin [Neurontin] 100 mg PO TID Pantoprazole Sodium [Protonix] 40 mg PO DAILY #30 tab Prochlorperazine [Compazine] 10 mg PO TID-W/MEALS Ergocalciferol (Vitamin D2) [Drisdol (50,000 Iu)] 1,250 mcg PO Q7D Discontinued Celecoxib [CeleBREX] 200 mg PO DAILY amLODIPine [Norvasc] 5 mg PO DAILY #30 tab Discharge Medication List Levothyroxine Sodium 175 mcg PO DAILY 02/19/16 [History] Metoprolol Tartrate [Lopressor] 25 mg PO BID 10/15/17 [History] Venlafaxine HCl [Effexor XR] 225 mg PO DAILY 10/15/17 [History] Atorvastatin Calcium [Lipitor] 20 mg PO HS 01/18/19 [History] lisinopriL [Zestril] 5 mg PO DAILY 01/01/21 [History] metFORMIN HCL [Glucophage] 1,000 mg PO BID 01/01/21 [History] Nitroglycerin Sl Tabs [Nitrostat] 0.4 mg SUBLINGUAL Q5M PRN #30 tab 07/25/22 [Rx] Pantoprazole Sodium [Protonix] 40 mg PO DAILY #30 tab 07/25/22 [Rx] Tirzepatide [Mounjaro] 5 mg SQ MO 06/16/23 [History] Ergocalciferol (Vitamin D2) [Drisdol (50,000 Iu)] 1,250 mcg PO Q7D 07/05/23 [History] Gabapentin [Neurontin] 100 mg PO TID 07/05/23 [History] Prochlorperazine [Compazine] 10 mg PO TID-W/MEALS 07/05/23 [History] Levofloxacin [Levaquin] 500 mg PO DAILY 7 Days #7 tab 07/09/23 [Rx] metroNIDAZOLE [Flagyl] 500 mg PO TID 7 Days #21 tab 07/09/23 [Rx] Follow up Appointment(s)/Referral(s): Tello Leiva MD [Primary Care Provider] - 07/13/23 10:30 am Chris Chapin MD [STAFF PHYSICIAN] - 1 Week (Office will call you to schedule follow up appoitment) Patient Instructions/Handouts: Dehydration (GEN) Activity/Diet/Wound Care/Special Instructions: heart healthy diet, low carbohydrate 1600 k carl per day activity as tolerated until you see your doctor We recommend to check your glucose 4 times a day before each meal and at bedtime, keep the results in a logbook and bring it to your doctor on your appointment date If your glucose less than 70 or more than 400 and then call 911 or come to emergency room Discharge Disposition: HOME SELF-CARE
== END 2023-07-09 12:31 | disposition home or self-care (01) | DRG 871 ==
LOC: EC 14:53 → SUPCPDRO 14:53 → 3NCARDOBS 18:08 → 3SCARD 20:53
PROVIDERS: ADMIT Hospitalist; ATTEND Hospitalist
DX: A41.9 Sepsis, unspecified organism (principal); G93.41 Metabolic encephalopathy; E03.9 Hypothyroidism, unspecified; E11.40 Type 2 diabetes mellitus with diabetic neuropathy, unspecified; E66.01 Morbid (severe) obesity due to excess calories; Z68.38 Body mass index [BMI] 38.0-38.9, adult; E78.5 Hyperlipidemia, unspecified; E86.0 Dehydration; E86.1 Hypovolemia; I95.9 Hypotension, unspecified; I10 Essential (primary) hypertension; F41.9 Anxiety disorder, unspecified; I25.10 Atherosclerotic heart disease of native coronary artery without angina pectoris; I27.20 Pulmonary hypertension, unspecified; I08.0 Rheumatic disorders of both mitral and aortic valves; R79.1 Abnormal coagulation profile; I45.10 Unspecified right bundle-branch block; K90.0 Celiac disease; Z79.1 Long term (current) use of non-steroidal anti-inflammatories (NSAID); Z79.4 Long term (current) use of insulin; Z79.84 Long term (current) use of oral hypoglycemic drugs; Z79.890 Hormone replacement therapy; Z79.899 Other long term (current) drug therapy; Z82.49 Family history of ischemic heart disease and other diseases of the circulatory system; Z87.891 Personal history of nicotine dependence; Z88.5 Allergy status to narcotic agent
CPT/HCPCS: 36415; 51702; 71045; 71275; 74177; 80048; 80053; 81001; 83605; 83690; 83735; 83880; 84100; 84145; 84443; 84484; 85025; 85379; 85610; 85730; 86140; 87040; 87324; 93005; 93306; 93970; 94760; 96361; 96365; 96366; 96367; 96375; 96376; 99291

== ENCOUNTER → 2024-03-16 | Outpatient (CLI) | payer MEDICARE ==
--- NOTE | 2024-03-20 17:22 | MM ---
Reason for Exam: Screening (asymptomatic). Last mammogram was performed 1 year(s) and 10 month(s) ago. Patient History: Menarche at age 13. First Full-Term at age 15. Left ovary removed at age 60. Right ovary removed at age 60. Hysterectomy at age 60. Postmenopausal. 07/07/2011, Benign Core Biopsy on the left side. 07/07/2011, Benign Core Biopsy on the right side. Risk Values: Rachel 5 year model risk: 1.6%. NCI Lifetime model risk: 6.4%. Prior Study Comparison: 07/05/2018 Right Diagnostic Mammogram, [facility]. 06/03/2022 Bilateral MG screening mammo w CAD, [facility]. 06/05/2022 Right MG work up mamm w CAD RT, [facility]. Tissue Density: There are scattered areas of fibroglandular density. Findings: Analyzed By CAD. The pattern is symmetrical. Significant interval change. Benign scattered calcifications present. Coronary markers are present bilaterally No suspicious groups of microcalcifications, spiculated or lobular masses, architectural distortion or other secondary signs of malignancy are mammographically apparent. Overall Assessment: Benign, BI-RAD 2 Management: Screening Mammogram of both breasts in 1 year. A negative mammogram report should not preclude additional follow up of suspicious palpable abnormalities. Patient should continue monthly self breast exam. A clinical breast exam by your physician is recommended on an annual basis and results should be correlated with mammographic findings. Note on Rachel scores and lifetime risk: 1. A Rachel score greater than 3% is considered moderate risk. If this is the case, consider specialist referral to assess eligibility for a risk reducing agent. 2. If overall lifetime risk for the development of breast cancer is 20% or higher, the patient may qualify for future screening with alternating mammogram and breast MRI. [facility], , 03/20/2024 5:19 PM. Electronically signed and approved by: Milo Ponce D.O. Radiologis
== END | disposition home or self-care (01) ==
LOC: RADMAMWWP 12:48
PROVIDERS: ATTEND Family Medicine
DX: Z12.31 Encounter for screening mammogram for malignant neoplasm of breast (principal); R92.323 Mammographic fibroglandular density, bilateral breasts; Z78.0 Asymptomatic menopausal state
CPT/HCPCS: 77063; 77067

== ENCOUNTER → 2024-06-03 | Outpatient (CLI) | payer MEDICARE ==
--- NOTE | 2024-06-03 15:39 | BD ---
EXAMINATION TYPE: Axial Bone Density DATE OF EXAM: 06/03/2024 CLINICAL HISTORY: 64 years old Female. ICD-10 CODE: Z78.0 ASYMPTOMATIC MENOPAUSAL STATE , Additional History: Height: 63.5 Weight: 215 FRAX RISK QUESTIONS: Family History (Parent hip fracture): no History of Fracture in Adulthood: no Secondary Osteoporosis: noRISK FACTORS HISTORY OF: Surgery to Spine/Hip(right/left)/Wrist (right/left): no MEDICATIONS: Thyroid Medications: yes Which medication: Levothyroxine How Lon+ years Osteoporosis Medications: no EXAM MEASUREMENTS: Bone mineral densitometry was performed using the Allocade System. Bone mineral density as measured about the Lumbar spine is: ----- L1-L4(G/cm2): 1.185 T Score Values are as follows: ----- L1: -0.6 ----- L2: 0.1 ----- L3: 0.2 ----- L4: 0.3 ----- L1-L4: 0.0 Z Score Values are as follows: ----- L1: -0.1 ----- L2: 0.6 ----- L3: 0.7 ----- L4: 0.8 ----- L1-L4: 0.5 Bone mineral density baseline Bone mineral density about the R hip (g/cm2): 0.881 Bone mineral density about the L hip (g/cm2): 0.914 T Score values are as follows: -----R Neck: -2.0 -----L Neck: -1.6 -----R Total: -1.0 -----L Total: -0.7 Z Score values are as follows: -----R Neck: -1.3 -----L Neck: -0.9 -----R Total: -0.6 -----L Total: -0.3 Bone mineral density baseline FRAX%s: The graph provided illustrates a 9.9% chance for a major osteoporotic fx and a 1.5% chance fo r the hips probability for fx in 10 years time. IMPRESSION: Osteopenia (T Score between -2.5 and -1). There is slightly increased risk of fracture and the patient may be considered for treatment. Re-Screen 2-5 years. NOTE: T-SCORE=SD OF THE YOUNG ADULT MEAN. [facility], , 06/03/2024 3:36 PM
== END | disposition home or self-care (01) ==
LOC: RADBDWWP 13:29
PROVIDERS: ATTEND Family Medicine
DX: M85.89 Other specified disorders of bone density and structure, multiple sites (principal); Z78.0 Asymptomatic menopausal state
CPT/HCPCS: 77080

== ENCOUNTER 2024-07-01 10:20 | Observation (INO) | payer MEDICARE ==
[2024-07-01] MEDS: ONDANSETRON 4 MG/2 ML VIAL IVP STA (12:12)
[2024-07-01] MEDS: SODIUM CHLORIDE 0.9% 1,000 ML IV STA (12:12)
[2024-07-01 12:21] LABS: Basophils % (A) 0 %; Eosinophils # (A) 0.2 k/uL (0-0.7); Eosinophils % (A) 1 %; HCT 48.2 % (34.0-46.0); HGB 15.6 gm/dL (11.4-16.0); Lymphocytes # (A) 0.6 k/uL (1.0-4.8); Lymphocytes % (A) 4 %; MCH 29.2 pg (25.0-35.0); MCHC 32.4 g/dL (31.0-37.0); MCV 90.2 fL (80.0-100.0); Mean Platelet Volume 8.5; Monocytes # (A) 0.4 k/uL (0-1.0); Monocytes % (A) 3 %; Neutrophils # (A) 12.5 k/uL (1.3-7.7); Neutrophils % (A) 91 %; Platelet Count 319 k/uL (150-450); RBC 5.34 m/uL (3.80-5.40); RDW 13.9 % (11.5-15.5); WBC 13.7 k/uL (3.8-10.6)
[2024-07-01 12:33] LABS: ALT 29 U/L (4-34); African American GFR (CKD) >90 (>60 ml/min/1.73 sqM); Anion Gap 14 mmol/L; Blood Urea Nitrogen 12 mg/dL (7-17); Calcium 9.5 mg/dL (8.4-10.2); Carbon Dioxide 26 mmol/L (22-30); Chloride 98 mmol/L (98-107); Glucose 127 mg/dL (74-99); Non-African American GFR(CKD) >90 (>60 ml/min/1.73 sqM); Sodium 138 mmol/L (137-145)
[2024-07-01 12:39] LABS: AST 31 U/L (14-36); Albumin 4.7 g/dL (3.5-5.0); Potassium 4.9 mmol/L (3.5-5.1); Total Bilirubin 0.9 mg/dL (0.2-1.3); Total Protein 7.7 g/dL (6.3-8.2)
[2024-07-01 12:40] LABS: Alkaline Phosphatase 64 U/L (38-126); Partial Thromboplastin Time 22.5 sec (22.0-30.0); Prothrombin Time 10.9 sec (10.0-12.5)
--- NOTE | 2024-07-01 13:58 | XR ---
EXAMINATION TYPE: XR chest 2V DATE OF EXAM: 07/01/2024 1:53 PM COMPARISON: 07/05/2023 CLINICAL INDICATION: Female, 64 years old with history of syncope, TECHNIQUE: XR chest 2V view(s) obtained. FINDINGS: The heart size is normal. The pulmonary vasculature is normal. Mild infiltrate at the right costophrenic angle correlate for atelectasis.. IMPRESSION: 1. Suggestion of mild atelectatic changes right costophrenic angle [facility], , 07/01/2024 1:56 PM
--- NOTE | 2024-07-01 14:05 | ED ---
Abdominal Pain HPI - General Chief Complaint: Abdominal Pain Stated Complaint: Near syncope Time Seen by Provider: 07/01/24 10:25 Source: patient Mode of arrival: ambulatory Limitations: no limitations - History of Present Illness Initial Comments: 64-year-old female presents to the emergency department reporting nausea, vomiting, diffuse abdominal pain and bloating. Patient states that her symptoms started last night but got worse this morning. Patient feels so nauseated and lightheaded that she feels like she is get a pass out. She was on a cruise last week. States that she started with some nasal congestion and has now progressed to the symptoms that she has. She does admit to a history of celiac however when she has an exacerbation of the symptoms she typically gets diarrhea. Patient states she did have a small bowel movement this morning. Denies diarrhea. No black or bloody stools. She is status post hysterectomy. She denies having any fevers. Not take anything for the vomiting before coming in. Denies any chest pain or difficulty breathing. Continues to make urine without difficulty. No other alleviating, precipitating or modifying factors - Related Data Home Medications Medication Instructions Recorded Confirmed Levothyroxine Sodium 175 mcg PO DAILY 02/19/16 07/01/24 Metoprolol Tartrate [Lopressor] 25 mg PO BID 10/15/17 07/01/24 Venlafaxine HCl [Effexor XR] 225 mg PO DAILY 10/15/17 07/01/24 metFORMIN HCL [Glucophage] 1,000 mg PO BID 01/01/21 07/01/24 Atorvastatin [Lipitor] 40 mg PO HS 07/01/24 07/01/24 Tirzepatide [Mounjaro] 10 mg SQ MO 07/01/24 07/01/24 amLODIPine [Norvasc] 5 mg PO DAILY 07/01/24 07/01/24 lisinopriL [Zestril] 10 mg PO DAILY 07/01/24 07/01/24 Previous Rx's Medication Instructions Recorded Pantoprazole Sodium [Protonix] 40 mg PO DAILY #30 tab 07/25/22 Allergies Allergy/AdvReac Type Severity Reaction Status Date / Time codeine Allergy Rash/Hives Verified 07/01/24 12:17 & LOW BP Review of Systems ROS Statement: Those systems with pertinent positive or pertinent negative responses have been documented in the HPI. ROS Other: All systems not noted in ROS Statement are negative. Past Medical History Past Medical History: Diabetes Mellitus, GERD/Reflux, Hypertension, Thyroid Disorder Additional Past Medical History / Comment(s): Pain lower back, IDDM type II, TRAVIS heel spurs, HX Vertigo, SHORTNESS OF BREATH W/ LITTLE ACTIVITY, LOWER BACK PAIN, OCC PALPITATIONS. Aortic Aneurysm for 6 years. Epigastric pain. ortic valve leaking History of Any Multi-Drug Resistant Organisms: None Reported Past Surgical History: Section, Heart Catheterization, Orthopedic Surgery, Tubal Ligation Additional Past Surgical History / Comment(s): Lymph node removal -benign from RT side base of neck, RT INDEX FINGER. COLONOSCOPY, rt heel spur Past Anesthesia/Blood Transfusion Reactions: No Reported Reaction Additional Past Anesthesia/Blood Transfusion Reaction / Comment(s): Pt received blood in past without reaction. Past Psychological History: Anxiety Smoking Status: Former smoker Past Alcohol Use History: None Reported Past Drug Use History: None Reported - Past Family History Father Family Medical History: Myocardial Infarction (MT) Additional Family Medical History / Comment(s): Father at the age of 36 yrs from a MT. Pt believes the MT was related to his illness with yellow jaundice. Mother Family Medical History: Cancer, Hypertension Additional Family Medical History / Comment(s): with CA at age 81 General Exam Limitations: no limitations General appearance: alert, in no apparent distress Head exam: Present: atraumatic, normocephalic, normal inspection Eye exam: Present: normal appearance, PERRL, EOMI. Absent: scleral icterus, conjunctival injection, periorbital swelling ENT exam: Present: normal exam, mucous membranes moist Neck exam: Present: normal inspection. Absent: tenderness, meningismus, lymphadenopathy Respiratory exam: Present: normal lung sounds bilaterally. Absent: respiratory distress, wheezes, rales, rhonchi, stridor Cardiovascular Exam: Present: normal rhythm, tachycardia, normal heart sounds. Absent: systolic murmur, diastolic murmur, rubs, gallop, clicks GI/Abdominal exam: Present: soft, distended, tenderness (midline abdomen), normal bowel sounds. Absent: guarding, rebound, rigid Extremities exam: Present: normal inspection, full ROM, normal capillary refill. Absent: tenderness, pedal edema, joint swelling, calf tenderness Back exam: Present: normal inspection Neurological exam: Present: alert, oriented X3, CN II-XII intact Psychiatric exam: Present: normal affect, normal mood Skin exam: Present: warm, dry, intact, normal color. Absent: rash Course Vital Signs 07/01/24 07/01/24 07/01/24 10:22 11:05 12:34 Temperature 98.3 F Pulse Rate 108 H 89 86 Pulse Rate [ Supine] Respiratory 18 17 13 Rate Blood Pressure 135/60 150/83 Blood Pressure [Right Arm] O2 Sat by Pulse 98 95 95 Oximetry 07/01/24 07/01/24 07/01/24 14:21 16:43 17:58 Temperature 97.8 F 99.7 F H Pulse Rate 94 92 87 Pulse Rate [ Supine] Respiratory 17 17 18 Rate Blood Pressure 127/72 130/70 148/89 Blood Pressure [Right Arm] O2 Sat by Pulse 93 L 95 95 Oximetry 07/01/24 18:17 Temperature 99.5 F Pulse Rate Pulse Rate [ 99 Supine] Respiratory 20 Rate Blood Pressure Blood Pressure 125/76 [Right Arm] O2 Sat by Pulse 93 L Oximetry Medical Decision Making - Medical Decision Making Was pt. sent in by a medical professional or institution (, PA, HEALTH CENTER ASSISTANT, urgent care, hospital, or fdc...) When possible be specific @ -No Did you speak to anyone other than the patient for history (EMS, parent, family, police, friend...)? What history was obtained from this source @ -No Did you review nursing and triage notes (agree or disagree)? Why? @ -I reviewed and agree with nursing and triage notes Were old charts reviewed (outside hosp., previous admission, EMS record, old EKG, old radiological studies, urgent care reports/EKG's, fdc records)? Report findings @ -No old charts were reviewed Differential Diagnosis (chest pain, altered mental status, abdominal pain women, abdominal pain men, vaginal bleeding, weakness, fever, dyspnea, syncope, headache, dizziness, GI bleed, back pain, seizure, CVA, palpatations, mental health, musculoskeletal)? @ -Differential Abdominal Pain Women: Appendicitis, Cholecystitis, diverticulosis, ischemic bowel, pancreatitis, hepatitis, UTI, gastroenteritis, AAA, incarcerated hernia, bowel obstruction, constipation, inflammatory bowel, hepatitis, peptic ulcer disease, splenic infarction, perforated viscus, vulvitis, ovarian torsion, PID, kidney stone, pl acenta abruption, this is not meant to be an all-inclusive list EKG interpreted by me (3pts min.). @ -Yes and demonstrates sinus rhythm with a rate of 86. OH interval 155. QRS 146. QTc of 436. Right bundle branch block. No acute ST segment elevations X-rays interpreted by me (1pt min.). @ -None done CT interpreted by me (1pt min.). @ -Yes which demonstrates ileus U/S interpreted by me (1pt. min.). @ -None done What testing was considered but not performed or refused? (CT, X-rays, U/S, l abs)? Why? @ -None What meds were considered but not given or refused? Why? @ -None Did you discuss the management of the patient with other professionals (professionals i.e. , PA, HEALTH CENTER ASSISTANT, lab, RT, psych nurse, social and political studies professor, glaze mixer, teacher, sales promotion officer, classification case manager)? Give summary @ -Spoke with Dr. Ramirez for admission Was smoking cessation discussed for >3mins.? @ -No Was critical care preformed (if so, how long)? @ -No Were there social determinants of health that impacted care today? How? (Homelessness, low income, unemployed, alcoholism, drug addiction, transportation, low edu. Level, literacy, decrease access to med. care, alf, rehab)? @ -No Was there de-escalation of care discussed even if they declined (Discuss DNR or withdrawal of care, Hospice)? DNR status @ -No What co-morbidities impacted this encounter? (DM, HTN, Smoking, COPD, CAD, Cancer, CVA, ARF, Chemo, Hep., AIDS, mental health diagnosis, sleep apnea, morbid obesity)? @ -None Was patient admitted / discharged? Hospital course, mention meds given and route, prescriptions, significant lab abnormalities, going to OR and other pertinent info. @ -Upon arrival patient seen and evaluated in bed 16. Thorough history and physical exam were performed. IV access was established. Laboratory studies are conducted. Patient was given a dose of nausea medications. Laboratory studies are reviewed. CT was performed which demonstrates ileus. No signs of obstruction at this time. Patient will be admitted as she does have continuous vomiting. Additional antiemetics are ordered. Patient remained in stable c ondition and was admitted to Dr. Ramirez. Undiagnosed new problem with uncertain prognosis? @ -No Drug Therapy requiring intensive monitoring for toxicity (Heparin, Nitro, Insulin, Cardizem)? @ -No Were any procedures done? @ -No Diagnosis/symptom? @ -Acute abdominal pain, acute nausea vomiting, acute ileus Acute, or Chronic, or Acute on Chronic? @ -Acute Uncomplicated (without systemic symptoms) or Complicated (systemic symptoms)? @ -Complicated Side effects of treatment? @ -No Exacerbation, Progression, or Severe Exacerbation? @ -No Poses a threat to life or bodily function? How? (Chest pain, USA, MT, pneumonia, PE, COPD, DKA, ARF, appy, cholecystitis, CVA, Diverticulitis, Homicidal, Suicidal, threat to staff... and all critical care pts) @ -No - Lab Data Result diagrams: 07/01/24 12:08 07/01/24 12:08 Lab Results 07/01/24 07/01/24 07/01/24 Range/Units 12:08 12:08 12:08 WBC 13.7 H (3.8-10.6) k/uL RBC 5.34 (3.80-5.40) m/uL Hgb 15.6 (11.4-16.0) gm/dL Hct 48.2 H (34.0-46.0) % MCV 90.2 (80.0-100.0) fL MCH 29.2 (25.0-35.0) pg MCHC 32.4 (31.0-37.0) g/dL RDW 13.9 (11.5-15.5) % Plt Count 319 (150-450) k/uL MPV 8.5 Neutrophils % 91 % Lymphocytes % 4 % Monocytes % 3 % Eosinophils % 1 % Basophils % 0 % Neutrophils # 12.5 H (1.3-7.7) k/uL Lymphocytes # 0.6 L (1.0-4.8) k/uL Monocytes # 0.4 (0-1.0) k/uL Eosinophils # 0.2 (0-0.7) k/uL Basophils # 0.0 (0-0.2) k/uL PT 10.9 (10.0-12.5) sec INR 1.0 (<1.2) APTT 22.5 (22.0-30.0) sec Sodium 138 (137-145) mmol/L Potassium 4.9 (3.5-5.1) mmol/L Chloride 98 (98-107) mmol/L Carbon Dioxide 26 (22-30) mmol/L Anion Gap 14 mmol/L BUN 12 (7-17) mg/dL Creatinine 0.34 L (0.52-1.04) mg/dL Est GFR (CKD-EPI)AfAm >90 (>60 ml/min/1.73 sqM) Est GFR (CKD-EPI)NonAf >90 (>60 ml/min/1.73 sqM) Glucose 127 H (74-99) mg/dL Calcium 9.5 (8.4-10.2) mg/dL Total Bilirubin 0.9 (0.2-1.3) mg/dL AST 31 (14-36) U/L ALT 29 (4-34) U/L Alkaline Phosphatase 64 (38-126) U/L Troponin I (0.000-0.034) ng/mL Total Protein 7.7 (6.3-8.2) g/dL Albumin 4.7 (3.5-5.0) g/dL Urine Color Urine Appearance (Clear) Urine pH (5.0-8.0) Ur Specific Hudson (1.001-1.035) Urine Protein (Negative) Urine Glucose (UA) (Negative) Urine Ketones (Negative) Urine Blood (Negative) Urine Nitrite (Negative) Urine Bilirubin (Negative) Urine Urobilinogen (<2.0) mg/dL Ur Leukocyte Esterase (Negative) Urine RBC (0-5) /hpf Urine WBC (0-5) /hpf Ur Squamous Epith Cells (0-4) /hpf Urine Bacteria (None) /hpf Urine Mucus (None) /hpf 07/01/24 07/01/24 Range/Units 12:08 14:21 WBC (3.8-10.6) k/uL RBC (3.80-5.40) m/uL Hgb (11.4-16.0) gm/dL Hct (34.0-46.0) % MCV (80.0-100.0) fL MCH (25.0-35.0) pg MCHC (31.0-37.0) g/dL RDW (11.5-15.5) % Plt Count (150-450) k/uL MPV Neutrophils % % Lymphocytes % % Monocytes % % Eosinophils % % Basophils % % Neutrophils # (1.3-7.7) k/uL Lymphocytes # (1.0-4.8) k/uL Monocytes # (0-1.0) k/uL Eosinophils # (0-0.7) k/uL Basophils # (0-0.2) k/uL PT (10.0-12.5) sec INR (<1.2) APTT (22.0-30.0) sec Sodium (137-145) mmol/L Potassium (3.5-5.1) mmol/L Chloride (98-107) mmol/L Carbon Dioxide (22-30) mmol/L Anion Gap mmol/L BUN (7-17) mg/dL Creatinine (0.52-1.04) mg/dL Est GFR (CKD-EPI)AfAm (>60 ml/min/1.73 sqM) Est GFR (CKD-EPI)NonAf (>60 ml/min/1.73 sqM) Glucose (74-99) mg/dL Calcium (8.4-10.2) mg/dL Total Bilirubin (0.2-1.3) mg/dL AST (14-36) U/L ALT (4-34) U/L Alkaline Phosphatase (38-126) U/L Troponin I <0.012 (0.000-0.034) ng/mL Total Protein (6.3-8.2) g/dL Albumin (3.5-5.0) g/dL Urine Color Yellow Urine Appearance Clear (Clear) Urine pH 6.5 (5.0-8.0) Ur Specific Hudson 1.029 (1.001-1.035) Urine Protein 1+ H (Negative) Urine Glucose (UA) Negative (Negative) Urine Ketones Negative (Negative) Urine Blood Negative (Negative) Urine Nitrite Negative (Negative) Urine Bilirubin Negative (Negative) Urine Urobilinogen 2.0 (<2.0) mg/dL Ur Leukocyte Esterase Negative (Negative) Urine RBC <1 (0-5) /hpf Urine WBC 3 (0-5) /hpf Ur Squamous Epith Cells 3 (0-4) /hpf Urine Bacteria Rare H (None) /hpf Urine Mucus Occasional H (None) /hpf Disposition Clinical Impression: Dehydration, Abdominal pain, Ileus, Vomiting Disposition: ADMITTED IP TO THIS [facility] Condition: Stable Is patient prescribed a controlled substance at d/c from ED?: No Time of Disposition: 15:10 Decision to Admit Reason: Admit from EC Decision Date: 07/01/24 Decision Time: 15:10
--- NOTE | 2024-07-01 14:44 | CT ---
EXAMINATION TYPE: CT abdomen pelvis w con CT DLP: 1627.4 mGycm, Automated exposure control for dose reduction was used. DATE OF EXAM: 07/01/2024 2:35 PM COMPARISON: CT abdomen pelvis 07/05/2023 CLINICAL INDICATION:Female, 64 years old with history of abd pain, near syncope; Abdominal pain, near syncope TECHNIQUE: Standard CT of the abdomen and pelvis following the administration of 100 cc of Isovue 3 00 IV contrast material. Coronal and sagittal reformats were performed. FINDINGS: LOWER CHEST: Right lower lobe minimal dependent subsegmental atelectasis. Elevation of the right karen diaphragm redemonstrated. Coronary artery calcifications. ABDOMEN LIVER: Unremarkable GALLBLADDER AND BILE DUCTS: Unremarkable. PANCREAS: Unremarkable. SPLEEN: Unremarkable. ADRENAL GLANDS: Unremarkable. KIDNEYS AND URETERS: No evidence of hydronephrosis or renal calculus. The kidneys enhanced symmetrica lly. Left kidney is subcentimeter hypodensity likely representing a cyst. Contrast is demonstrated wi thin both collecting systems on the delayed phase. PELVIS BLADDER: Unremarkable REPRODUCTIVE: The uterus is surgically absent. ABDOMEN & PELVIS STOMACH AND BOWEL: Stomach is unremarkable.Sigmoid diverticulosis without evidence for acute divertic ulitis. The appendix is not definitively visualized however there is no significant inflammatory pineda ges within the right lower quadrant. Fluid-filled dilated small bowel measuring up to 3.7 cm with few air-fluid levels involving the mid to proximal small bowel. No focal transition point. No focal wall thickening or surrounding inflammatory changes. No pneumatosis. PERITONEUM: No evidence of pneumoperitoneum or free fluid. VASCULATURE: Mild atherosclerotic calcifications are present throughout the abdominal aorta and its b ranches. No evidence of aortic aneurysm. Pelvic phleboliths. MUSCULOSKELETAL: No acute osseous abnormalities. Degenerative changes of the pubic symphysis. Mild mu ltilevel degenerative disc disease of the visualized thoracolumbar spine. LYMPH NODES: No evidence for lymphadenopathy. SOFT TISSUE/ABDOMINAL WALL: Unremarkable IMPRESSION: Mildly dilated fluid-filled small bowel without focal transition point suggesting an ileus possibly f rom an enteritis. [facility], , 07/01/2024 2:42 PM
[2024-07-01 14:46] LABS: Appearance,Urine Clear (Clear); Bacteria,Urine Rare /hpf; Bilirubin,Urine Negative (Negative); Blood,Urine Negative (Negative); Color,Urine Yellow; Glucose,Urine (UA) Negative (Negative); Ketones,Urine Negative (Negative); Leukocyte Esterase,Urine Negative (Negative); Mucus,Urine Occasional /hpf; Nitrite,Urine Negative (Negative); PH, Urine 6.5 (5.0-8.0); Protein,Urine 1+ (Negative); RBC,Urine <1 /hpf (0-5); Specific Gravity,Urine 1.029 (1.001-1.035); Squamous Epithelial Cell,Urine 3 /hpf (0-4); WBC,Urine 3 /hpf (0-5)
[2024-07-01] MEDS ORDERED: NALOXONE 0.4 MG/ML 1 ML VIAL IV PRN (15:11)
[2024-07-01] MEDS: SODIUM CHLORIDE 0.9% 1,000 ML IV SCH ×2 (16:33→23:44)
[2024-07-01 16:34] LABS: Influenza A Not Detected (Not Detectd); Influenza B Not Detected (Not Detectd); RSV Not Detected (Not Detectd)
[2024-07-01] MEDS: ACETAMINOPHEN TAB 325 MG TAB PO STA (16:34)
[2024-07-01] MEDS: METOCLOPRAMIDE 5 MG/ML 2 ML VIAL IVP STA (16:35)
[2024-07-01] MEDS: diphenhydrAMINE 50 MG/ML 1 ML VIAL IVP STA (16:36)
[2024-07-01] MEDS ORDERED: ONDANSETRON 4 MG/2 ML VIAL IVP PRN (19:16)
[2024-07-01] MEDS ORDERED: KETOROLAC 15 MG/ML 1 ML VIAL IVP PRN (19:17)
[2024-07-01] MEDS ORDERED: HYDROmorphone 0.5 MG/0.5 ML SYRINGE IVP PRN (19:18)
[2024-07-01 20:12] LABS: Glucose,Whole Blood 95 mg/dL (70-110)
[2024-07-01] MEDS: PANTOPRAZOLE 40 MG/10 ML VIAL IVP SCH (23:37)
[2024-07-01] MEDS: METOPROLOL TARTRATE 25 MG TAB PO SCH (23:37)
[2024-07-01 23:56] LABS: Glucose,Whole Blood 99 mg/dL (70-110)
[2024-07-02] MEDS: INSULIN LISPRO (HumaLOG) 100 UNIT/ML 10 mL VL SQ SCH (00:18)
[2024-07-02 06:14] LABS: Glucose,Whole Blood 105 mg/dL (70-110)
[2024-07-02] MEDS: LEVOTHYROXINE 88 MCG TAB PO SCH (10:49)
[2024-07-02 12:05] LABS: Glucose,Whole Blood 88 mg/dL (70-110)
[2024-07-02] MEDS: guaiFENesin SYRUP 100MG/5ML 200 MG/10 ML CUP PO PRN (12:29)
--- NOTE | 2024-07-02 15:55 | P.HPIM ---
History of Present Illness H&P Date: 07/02/24 Chief Complaint: Abdominal pain 64-year-old female, history of hypertension, hyperlipidemia, hypothyroidism, diabetes mellitus, GERD, presents to the emergency department reporting nausea, vomiting, diffuse abdominal pain and bloating. Patient states that her symptoms started last night but got worse this morning. Patient feels so nauseated and lightheaded that she feels like she is get a pass out. She was on a cruise last week. States that she started with some nasal congestion and has now progressed to the symptoms that she has. She does admit to a history of celiac however when she has an exacerbation of the symptoms she typically gets diarrhea. Patient states she did have a small bowel movement this morning. Denies diarrhea. No black or bloody stools. She is status post hysterectomy. She denies having any fevers. Not take anything for the vomiting before coming in. Denies any chest pain or difficulty breathing. Continues to make urine without difficulty. No other alleviating, precipitating or modifying factors Blood work completed in ED reveals a WBC of 13.7, hemoglobin of 15.6 and platelet count of 319, sodium 138, potassium 4.9, BUNs/creatinine of 12/0.34, blood glucose of 127 UA reveals rare bacteria Influenza A and B PCR is negative; COVID-19 PCR is negative; RSV is negative CT of the abdomen and pelvis reveals mildly dilated fluid-filled small bowel without local transition point, suggesting an ileus Review of Systems REVIEW OF SYSTEMS: CONSTITUTIONAL: No fever, no malaise, no fatigue. HEENT: No recent visual problems or hearing problems. Denied any sore throat. CARDIOVASCULAR: No chest pain, orthopnea, PND, no palpitations, no syncope. PULMONARY: No shortness of breath, no cough, no hemoptysis. GASTROINTESTINAL: No diarrhea, no nausea, no vomiting, no abdominal pain. NEUROLOGICAL: No headaches, no weakness, no numbness. HEMATOLOGICAL: Denies any bleeding or petechiae. GENITOURINARY: Denies any burning micturition, frequency, or urgency. MUSCULOSKELETAL/RHEUMATOLOGICAL: Denies any joint pain, swelling, or any muscle pain. ENDOCRINE: Denies any polyuria or polydipsia. The rest of the 14-point review of systems is negative. Past Medical History Past Medical History: Diabetes Mellitus, GERD/Reflux, Hypertension, Thyroid Disorder Additional Past Medical History / Comment(s): Pain lower back, IDDM type II, TRAVIS heel spurs, HX Vertigo, SHORTNESS OF BREATH W/ LITTLE ACTIVITY, LOWER BACK PAIN, OCC PALPITATIONS. Aortic Aneurysm for 6 years. Epigastric pain. ortic valve leaking History of Any Multi-Drug Resistant Organisms: None Reported Past Surgical History: Section, Heart Catheterization, Orthopedic Surgery, Tubal Ligation Additional Past Surgical History / Comment(s): Lymph node removal -benign from RT side base of neck, RT INDEX FINGER. COLONOSCOPY, rt heel spur Past Anesthesia/Blood Transfusion Reactions: No Reported Reaction Additional Past Anesthesia/Blood Transfusion Reaction / Comment(s): Pt received blood in past without reaction. Past Psychological History: Anxiety Additional Psychological History / Comment(s): HX POSSIBLE PANIC ATTACK. Smoking Status: Former smoker Past Alcohol Use History: None Reported Additional Past Alcohol Use History / Comment(s): Pt states she smoked from [id number], 2 PPD. Past Drug Use History: None Reported - Past Family History Father Family Medical History: Myocardial Infarction (TN) Additional Family Medical History / Comment(s): Father at the age of 36 yrs from a TN. Pt believes the TN was related to his illness with yellow jaundice. Mother Family Medical History: Cancer, Hypertension Additional Family Medical History / Comment(s): with CA at age 81 Medications and Allergies Home Medications Medication Instructions Recorded Confirmed Type Levothyroxine Sodium 175 mcg PO DAILY 02/19/16 07/01/24 History Metoprolol Tartrate [Lopressor] 25 mg PO BID 10/15/17 07/01/24 History Venlafaxine HCl [Effexor XR] 225 mg PO DAILY 10/15/17 07/01/24 History metFORMIN HCL [Glucophage] 1,000 mg PO BID 01/01/21 07/01/24 History Pantoprazole Sodium [Protonix] 40 mg PO DAILY #30 tab 07/25/22 07/01/24 Rx Atorvastatin [Lipitor] 40 mg PO HS 07/01/24 07/01/24 History Tirzepatide [Mounjaro] 10 mg SQ MO 07/01/24 07/01/24 History amLODIPine [Norvasc] 5 mg PO DAILY 07/01/24 07/01/24 History lisinopriL [Zestril] 10 mg PO DAILY 07/01/24 07/01/24 History Allergies Allergy/AdvReac Type Severity Reaction Status Date / Time codeine Allergy Rash/Hives Verified 07/01/24 12:17 & LOW BP Physical Exam Vitals: Vital Signs Temp Pulse Pulse Pulse Resp BP BP 07/02/24 07:12 98.6 F 74 18 104/67 07/02/24 01:00 98.4 F 82 18 131/77 07/01/24 18:17 99.5 F 99 20 125/76 07/01/24 17:58 99.7 F H 87 18 148/89 07/01/24 16:43 92 17 130/70 07/01/24 14:21 97.8 F 94 17 127/72 07/01/24 12:34 86 13 150/83 07/01/24 11:05 89 17 135/60 07/01/24 10:22 98.3 F 108 H 18 Pulse Ox 07/02/24 07:12 92 L 07/02/24 01:00 93 L 07/01/24 18:17 93 L 07/01/24 17:58 95 07/01/24 16:43 95 07/01/24 14:21 93 L 07/01/24 12:34 95 07/01/24 11:05 95 07/01/24 10:22 98 Intake and Output 07/01/24 07/02/24 07/02/24 22:59 06:59 14:59 Other: Voiding Method Toilet # Voids 0 3 Weight 96.162 kg General appearance: alert, in no apparent distress Head exam: Present: atraumatic, normocephalic, normal inspection Eye exam: Present: normal appearance, PERRL, EOMI. Absent: scleral icterus, conjunctival injection, periorbital swelling ENT exam: Present: normal exam, mucous membranes moist Neck exam: Present: normal inspection. Absent: tenderness, meningismus, lymphadenopathy Respiratory exam: Present: normal lung sounds bilaterally. Absent: respiratory distress, wheezes, rales, rhonchi, stridor Cardiovascular Exam: Present: normal rhythm, tachycardia, normal heart sounds. Absent: systolic murmur, diastolic murmur, rubs, gallop, clicks GI/Abdominal exam: Present: soft, distended, tenderness (midline abdomen), normal bowel sounds. Absent: guarding, rebound, rigid Extremities exam: Present: normal inspection, full ROM, normal capillary refill. Absent: tenderness, pedal edema, joint swelling, calf tenderness Back exam: Present: normal inspection Neurological exam: Present: alert, oriented X3, CN II-XII intact Psychiatric exam: Present: normal affect, normal mood Skin exam: Present: warm, dry, intact, normal color. Absent: rash Results CBC & Chem 7: 07/01/24 12:08 07/01/24 12:08 Labs: Abnormal Lab Results - Last 24 Hours (Table) 07/01/24 07/01/24 07/01/24 Range/Units 12:08 12:08 14:21 WBC 13.7 H (3.8-10.6) k/uL Hct 48.2 H (34.0-46.0) % Neutrophils # 12.5 H (1.3-7.7) k/uL Lymphocytes # 0.6 L (1.0-4.8) k/uL Creatinine 0.34 L (0.52-1.04) mg/dL Glucose 127 H (74-99) mg/dL Urine Protein 1+ H (Negative) Urine Bacteria Rare H (None) /hpf Urine Mucus Occasional H (None) /hpf Thrombosis Risk Factor Assmnt - Choose All That Apply Any of the Below Risk Factors Present?: Yes Each Risk Factor Represents 2 Points: Age 61-74 years Thrombosis Risk Factor Assessment Total Risk Factor Score: 2 Thrombosis Risk Factor Assessment Level: Low Risk Assessment and Plan Assessment: 1. Abdominal pain; small bowel ileus -Patient has been placed on IV fluid hydration; remains n.p.o.; patient remains on Protonix 40 mg IV every 12 hours; Reglan/Zofran for symptomatic treatment -Monitor electrolytes -General Surgery is consulted 2. Hypertension; metoprolol 25 mg twice daily; Norvasc 5 mg daily 3. Hypothyroidism; levothyroxine 176 mcg daily 4. Depression/anxiety; Effexor XR to 25 mg daily 5. Diabetes mellitus; metformin 1000 mg twice daily; patient takes Mounjaro at home which has been placed on hold 6. Hyperlipidemia; Lipitor 10 mg daily DVT prophylaxis; SCDs CODE STATUS; full code
[2024-07-02 16:44] LABS: Glucose,Whole Blood 84 mg/dL (70-110)
[2024-07-02] MEDS: VENLAFAXINE HCL ER 75 MG CAP PO SCH (16:46)
--- NOTE | 2024-07-02 16:48 | P.GSCN ---
History of Present Illness Consult date: 07/02/24 History of present illness: CHIEF COMPLAINT: Ileus HISTORY OF PRESENT ILLNESS: The patient is a 64-year-old female who came in with nausea and vomiting yesterday. Patient reports that she had 3 large bowel movements and abdominal pain is improved. Incidentally, she reported a 6-month history of celiac disease symptoms. She is also been taking Mounjaro at the same time frame. She has lost intentional 60 pounds. She reports she is breathing better however has a generalized malaise. General surgery is consulted due to abdominal pain. Additionally, patient reports having intractable right upper back pain. Patient reports lower abdominal pain as well. PAST MEDICAL HISTORY: See list and reviewed PAST SURGICAL HISTORY: See list and reviewed MEDICATIONS: See list and reviewed ALLERGIES: See list and reviewed SOCIAL HISTORY: See list and reviewed FAMILY HISTORY: See list and reviewed REVIEW OF ORGAN SYSTEMS: CONSTITUTIONAL: No fevers or chills. Intentional weight loss 60 pounds in 6 months. EYES: Denies any trouble with vision. Wears glasses. HEENT: No difficulties with hearing. No nosebleeds. No difficulty swallowing. RESPIRATORY: Denies pneumonia. Denies any troubles with breathing or dyspnea on exertion. CARDIOVASCULAR: Has hyperlipidemia. Has hypertensive heart disease. GASTROINTESTINAL: History of celiac disease. Has gastroesophageal reflux disease. GENITOURINARY: Denies any blood in urine or increased urinary frequency. NEUROLOGICAL: Denies any numbness or tingling along the distal extremities. No seizure disorders or headaches. MUSCULOSKELETAL: Denies any back pain, stiffness or joint arthritis. SKIN: No current skin cancer. No rash. PSYCHIATRIC: Denies current depression or suicidal thoughts. ENDOCRINE: Has hypothyroidism. Has diabetes type 2. HEME/LYMPHATIC: Denies any lumps and bumps around the neck. No recent deep venous thrombosis. ALLERGY/IMMUNOLOGY: No immunoglobulin therapy. No immune deficiencies. BREAST: Denies current breast lumps, pain or nipple discharge. PHYSICAL EXAM: VITALS: Reviewed CONSTITUTIONAL: Well developed and in no acute distress. EYES: Conjuctivae without sclera icterus. Extraocular movements grossly intact. HEAD, EARS, NOSE, THROAT: Moist buccal mucosa. Head is atraumatic, normocephalic. Hears conversational speech. No nasal drainage. NECK: Supple. No JV distention. No thyroidomegaly. RESPIRATORY: Non-labored respirations and equal bilateral excursions. No gross wheezes. CARDIOVASCULAR: Palpable 2+ radial pulses. ABDOMEN: Obese. Nontender. LYMPH: No neck lymphadenopathy. MUSCULOSKELETAL: No clubbing cyanosis or edema SKIN: Warm and well perfused with good skin turgor. NEUROLOGIC: Cranial nerves II through XII grossly intact. No focal or lat eralizing signs. PSYCH: Appropriate affect. Alert and oriented to person, place and time. Displays appropriate insight. CLINCAL LABS: Reviewed. WBC elevated over 13,000. LFTs within normal limits. IMAGING: Independently reviewed. CT of the abdomen pelvis independently reviewed demonstrate moderately large liver. Distended stomach. Moderately dilated gallbladder. No inflammatory changes. This is my independent or potation. Presence of fatty liver disease. EKG: Abnormal with left atrial enlargement. Bundle billy block present. RADIOLOGY: Report reviewed. CT of the abdomen pelvis report consistent with ileus. RECORDS: previous old records reviewed of EGD obtained in 2022 demonstrates sprue on pathology. Colonoscopy report reviewed 2023 with hyperplastic polyp identified ASSESSMENT: 1. Abdominal pain 2. Right upper back pain. 3. Adverse reaction Mounjaro 4. Fatty liver disease 5. Diabetes type 2 6. Obesity excess calories, BMI 34.2 PLAN: 1. She reports abdominal pain including right upper back pain in the presence of intentional weight loss 60 pounds in 6 months highly suspicious for underlying gallbladder disease. Ultrasound of the gallbladder obtained. 2. Side effects of Mounjaro may include ileus as patient reports symptoms has been overlapping for the past 6 months with the start of this medication. 3. Low-fat diet in interim. 4. Recommend CBC prior to discharge ADVANCE DIRECTIVE: CODE STATUS in chart Thank you for this kind consultation. Past Medical History Past Medical History: Diabetes Mellitus, GERD/Reflux, Hypertension, Thyroid Disorder Additional Past Medical History / Comment(s): Pain lower back, IDDM type II, TRAVIS heel spurs, HX Vertigo, SHORTNESS OF BREATH W/ LITTLE ACTIVITY, LOWER BACK PAIN, OCC PALPITATIONS. Aortic Aneurysm for 6 years. Epigastric pain. ortic valve leaking History of Any Multi-Drug Resistant Organisms: None Reported Past Surgical History: Section, Heart Catheterization, Orthopedic Surgery, Tubal Ligation Additional Past Surgical History / Comment(s): Lymph node removal -benign from RT side base of neck, RT INDEX FINGER. COLONOSCOPY, rt heel spur Past Anesthesia/Blood Transfusion Reactions: No Reported Reaction Additional Past Anesthesia/Blood Transfusion Reaction / Comm: Pt received blood in past without reaction. Past Psychological History: Anxiety Additional Psychological History / Comment(s): HX POSSIBLE PANIC ATTACK. Smoking Status: Former smoker Past Alcohol Use History: None Reported Additional Past Alcohol Use History / Comment(s): Pt states she smoked from [id number], 2 PPD. Past Drug Use History: None Reported - Past Family History Father Family Medical History: Myocardial Infarction (ID) Additional Family Medical History / Comment(s): Father at the age of 36 yrs from a ID. Pt believes the ID was related to his illness with yellow jaundice. Mother Family Medical History: Cancer, Hypertension Additional Family Medical History / Comment(s): with CA at age 81 Medications and Allergies Home Medications Medication Instructions Recorded Confirmed Type Levothyroxine Sodium 175 mcg PO DAILY 02/19/16 07/01/24 History Metoprolol Tartrate [Lopressor] 25 mg PO BID 10/15/17 07/01/24 History Venlafaxine HCl [Effexor XR] 225 mg PO DAILY 10/15/17 07/01/24 History metFORMIN HCL [Glucophage] 1,000 mg PO BID 01/01/21 07/01/24 History Pantoprazole Sodium [Protonix] 40 mg PO DAILY #30 tab 07/25/22 07/01/24 Rx Atorvastatin [Lipitor] 40 mg PO HS 07/01/24 07/01/24 History Tirzepatide [Mounjaro] 10 mg SQ MO 07/01/24 07/01/24 History amLODIPine [Norvasc] 5 mg PO DAILY 07/01/24 07/01/24 History lisinopriL [Zestril] 10 mg PO DAILY 07/01/24 07/01/24 History Allergies Allergy/AdvReac Type Severity Reaction Status Date / Time codeine Allergy Rash/Hives Verified 07/01/24 12:17 & LOW BP Surgical - Exam Vital Signs Temp Pulse Resp Pulse Ox 98.3 F 108 H 18 98 07/01/24 10:22 07/01/24 10:22 07/01/24 10:22 07/01/24 10:22 Results - Labs 07/01/24 12:08 07/01/24 12:08
[2024-07-03 02:11] VITALS: RESP 18
[2024-07-03 06:15] LABS: Glucose,Whole Blood 111 mg/dL (70-110)
[2024-07-03 07:46] LABS: African American GFR (CKD) >90 (>60 ml/min/1.73 sqM); Anion Gap 6 mmol/L; Basophils % (A) 0 %; Blood Urea Nitrogen 6 mg/dL (7-17); Calcium 8.6 mg/dL (8.4-10.2); Carbon Dioxide 30 mmol/L (22-30); Chloride 99 mmol/L (98-107); Eosinophils # (A) 0.2 k/uL (0-0.7); Eosinophils % (A) 2 %; Glucose 106 mg/dL (74-99); HCT 37.7 % (34.0-46.0); Lymphocytes # (A) 0.9 k/uL (1.0-4.8); Lymphocytes % (A) 13 %; MCH 29.9 pg (25.0-35.0); MCHC 32.1 g/dL (31.0-37.0); MCV 93.1 fL (80.0-100.0); Mean Platelet Volume 8.9; Monocytes # (A) 0.5 k/uL (0-1.0); Monocytes % (A) 7 %; Neutrophils # (A) 5.2 k/uL (1.3-7.7); Neutrophils % (A) 76 %; Non-African American GFR(CKD) >90 (>60 ml/min/1.73 sqM); Platelet Count 226 k/uL (150-450); Potassium 3.8 mmol/L (3.5-5.1); RBC 4.05 m/uL (3.80-5.40); RDW 13.7 % (11.5-15.5); Sodium 135 mmol/L (137-145); WBC 6.8 k/uL (3.8-10.6)
[2024-07-03 07:59] LABS: HGB 12.1 gm/dL (11.4-16.0)
[2024-07-03] MEDS ORDERED: VENLAFAXINE HCL ER 75 MG CAP PO SCH (09:00)
--- NOTE | 2024-07-03 10:39 | US ---
EXAMINATION TYPE: US gallbladder DATE OF EXAM: 07/03/2024 COMPARISON: NONE CLINICAL INDICATION: Female, 64 years old with history of RUQ pain; RUQ pain TECHNIQUE: Grayscale and color Doppler imaging of the right upper quadrant was performed. FINDINGS: EXAM MEASUREMENTS: Liver Length: 22.6 cm Gallbladder Wall: .2 cm CBD: .3 cm Right Kidney: 12.7 x 4.8 x 5.1 cm INSTRUMENT MAKER AND REPAIRER NOTES: Pancreas: Obscured by bowel gas Liver: Hepatomegaly increased attenuation. Focal sparing adjacent to gallbladder 2.5 x 1.9 x 1.6 cm. Gallbladder: No stones seen Evidence for sonographic Mcclure's sign: No CBD: wnl Right Kidney: No hydronephrosis or masses seen The pancreas is obscured by overlying bowel gas. Liver is enlarged with diffusely increased attenuati on. There is a focal region of sparing adjacent to the gallbladder. No gallstones, wall thickening or surrounding fluid. Negative sonographic Mcclure sign. Common bile duct is within normal limits. Right kidney demonstrates no hydronephrosis, solid mass, shadowing calculus. IMPRESSION: 1. No ultrasound evidence for acute process. 2. Hepatomegaly with fatty infiltration and focal fatty sparing adjacent to the gallbladder. [facility], , 07/03/2024 10:37 AM
[2024-07-03 11:46] LABS: Glucose,Whole Blood 133 mg/dL (70-110)
--- NOTE | 2024-07-03 14:36 | P.PN ---
Subjective Progress Note Date: 07/03/24 CHIEF COMPLAINT: Ileus HISTORY OF PRESENT ILLNESS: The patient is a 64-year-old female who came in with nausea and vomiting including leukocytosis and ileus. Her symptoms now completely resolved. After further discussion of side effects from some of her medications such as Mounjaro, patient is opting to avoid medication and follow- up with her primary care provider regarding this. She is tolerating diet. REVIEW OF ORGAN SYSTEMS: No fevers or chills. No nausea or vomiting. PHYSICAL EXAM: VITALS: Reviewed CONSTITUTIONAL: Well developed and in no acute distress. EYES: Conjuctivae without sclera icterus. Extraocular movements grossly intact. HEAD, EARS, NOSE, THROAT: Moist buccal mucosa. Head is atraumatic, normocephalic. Hears conversational speech. No nasal drainage. RESPIRATORY: Non-labored respirations and equal bilateral excursions. No gross wheezes. CARDIOVASCULAR: Palpable 2+ radial pulses. ABDOMEN: Obese. Nontender. MUSCULOSKELETAL: No clubbing cyanosis or edema SKIN: Warm and well perfused with good skin turgor. NEUROLOGIC: Cranial nerves II through XII grossly intact. No focal or lateralizing signs. PSYCH: Appropriate affect. Alert and oriented to person, place and time. Displays appropriate insight. CLINCAL LABS: Reviewed. WBC now normal since admission. RADIOLOGY: Report reviewed. Ultrasound of the gallbladder independently reviewed demonstrate no gallstones. STUDIES: Ultrasound gallbladder report demonstrates moderate fatty liver disease ASSESSMENT: 1. Abdominal pain 2. Right upper back pain. 3. Adverse reaction Mounjaro 4. Fatty liver disease 5. Diabetes type 2 6. Obesity excess calories, BMI 34.2 7. Fatty liver disease PLAN: 1. Clinically, patient reports her abdominal pain is resolved. Additionally, WBC now normal 2. New findings of fatty liver disease were reviewed. Patient may opt for outpatient follow-up regarding her fatty liver disease. Otherwise stable for discharge. 3. Low carbohydrate high-protein diet advised. Objective - Vital Signs Vital signs: Vital Signs Temp 99.1 F 07/03/24 07:00 Pulse 66 07/03/24 07:00 Resp 18 07/03/24 07:00 BP 127/70 07/03/24 07:00 Pulse Ox 95 07/03/24 07:00 FiO2 Intake & Output 07/02/24 07/03/24 07/03/24 18:59 06:59 18:59 Intake Total 1680 Balance 1680 Intake: Intake, IV Titration 1200 Amount Sodium Chloride 0.9% 1, 1200 000 ml @ 100 mls/hr IV . Q10H RAMU Rx#:[id number] Oral 480 Other: # Voids 4 2 - Labs CBC & Chem 7: 07/03/24 06:13 07/03/24 06:13 Labs: Abnormal Lab Results - Last 24 Hours (Table) 07/03/24 07/03/24 07/03/24 Range/Units 06:13 06:13 06:14 Lymphocytes # 0.9 L (1.0-4.8) k/uL Sodium 135 L (137-145) mmol/L BUN 6 L (7-17) mg/dL Creatinine 0.44 L (0.52-1.04) mg/dL Glucose 106 H (74-99) mg/dL POC Glucose (mg/dL) 111 H (70-110) mg/dL 07/03/24 Range/Units 11:45 Lymphocytes # (1.0-4.8) k/uL Sodium (137-145) mmol/L BUN (7-17) mg/dL Creatinine (0.52-1.04) mg/dL Glucose (74-99) mg/dL POC Glucose (mg/dL) 133 H (70-110) mg/dL
[2024-07-03 14:53] VITALS: BP 149/71; PULSE 73; TEMP 100.5
--- NOTE | 2024-07-16 19:44 | P.DS ---
Providers Date of admission: 07/01/24 15:43 Expected date of discharge: 07/03/24 Attending physician: Mike Ramirez MD Consults: 07/01/24 15:18 Consult Physician Urgent Consulting Provider: Hortencia Gutierres Consult Reason/Comments: ileus Do you want consulting provider notified?: Yes Primary care physician: Tello Leiva Hospital Course: 64-year-old female, history of hypertension, hyperlipidemia, hypothyroidism, diabetes mellitus, GERD, presents to the emergency department reporting nausea, vomiting, diffuse abdominal pain and bloating. Patient states that her symptoms started last night but got worse this morning. Patient feels so nauseated and lightheaded that she feels like she is get a pass out. She was on a cruise last week. States that she started with some nasal congestion and has now progressed to the symptoms that she has. She does admit to a history of celiac however when she has an exacerbation of the symptoms she typically gets diarrhea. Marissa ent states she did have a small bowel movement this morning. Denies diarrhea. No black or bloody stools. She is status post hysterectomy. She denies having any fevers. Not take anything for the vomiting before coming in. Denies any chest pain or difficulty breathing. Continues to make urine without difficulty. No other alleviating, precipitating or modifying factors Blood work completed in ED reveals a WBC of 13.7, hemoglobin of 15.6 and platelet count of 319, sodium 138, potassium 4.9, BUNs/creatinine of 12/0.34, blood glucose of 127 UA reveals rare bacteria Influenza A and B PCR is negative; COVID-19 PCR is negative; RSV is negative CT of the abdomen and pelvis reveals mildly dilated fluid-filled small bowel without local transition point, suggesting an ileus 1. Abdominal pain; small bowel ileus -Patient has been placed on IV fluid hydration; remains n.p.o.; patient remains on Protonix 40 mg IV every 12 hours; Reglan/Zofran for symptomatic treatment -Monitor electrolytes -General Surgery is consulted 2. Hypertension; metoprolol 25 mg twice daily; Norvasc 5 mg daily 3. Hypothyroidism; levothyroxine 176 mcg daily 4. Depression/anxiety; Effexor XR to 25 mg daily 5. Diabetes mellitus; metformin 1000 mg twice daily; patient takes Mounjaro at home which has been placed on hold 6. Hyperlipidemia; Lipitor 10 mg daily Patient evaluated by general surgery with following recommendation 1. Clinically, patient reports her abdominal pain is resolved. Additionally, WBC now normal 2. New findings of fatty liver disease were reviewed. Patient may opt for outpatient follow-up regarding her fatty liver disease. Otherwise stable for discharge. 3. Low carbohydrate high-protein diet advised. Patient Condition at Discharge: Stable Plan - Discharge Summary Discharge Rx Participant: No New Discharge Prescriptions: New Azithromycin [Zithromax Z Pack] 1 tab PO DIRECTED 5 Days #6 tab Continue Levothyroxine Sodium 175 mcg PO DAILY Metoprolol Tartrate [Lopressor] 25 mg PO BID Venlafaxine HCl [Effexor XR] 225 mg PO DAILY metFORMIN HCL [Glucophage] 1,000 mg PO BID Tirzepatide [Mounjaro] 10 mg SQ MO Pantoprazole Sodium [Protonix] 40 mg PO DAILY #30 tab amLODIPine [Norvasc] 5 mg PO DAILY Atorvastatin [Lipitor] 40 mg PO HS lisinopriL [Zestril] 10 mg PO DAILY Discharge Medication List Levothyroxine Sodium 175 mcg PO DAILY 02/19/16 [History] Metoprolol Tartrate [Lopressor] 25 mg PO BID 10/15/17 [History] Venlafaxine HCl [Effexor XR] 225 mg PO DAILY 10/15/17 [History] metFORMIN HCL [Glucophage] 1,000 mg PO BID 01/01/21 [History] Pantoprazole Sodium [Protonix] 40 mg PO DAILY #30 tab 07/25/22 [Rx] Atorvastatin [Lipitor] 40 mg PO HS 07/01/24 [History] Tirzepatide [Mounjaro] 10 mg SQ MO 07/01/24 [History] amLODIPine [Norvasc] 5 mg PO DAILY 07/01/24 [History] lisinopriL [Zestril] 10 mg PO DAILY 07/01/24 [History] Azithromycin [Zithromax Z Pack] 1 tab PO DIRECTED 5 Days #6 tab 07/03/24 [Rx] Follow up Appointment(s)/Referral(s): Tello Leiva MD [Primary Care Provider] - 1-2 days (Office is closed at time of discharge. Please call for follow-up appointment.) Hortencia Gutierres MD [STAFF PHYSICIAN] - As Needed (Office is closed at time of discharge. Please call for follow-up appointment.) Patient Instructions/Handouts: Non-Alcoholic Fatty Liver Disease (DC) Discharge Disposition: HOME SELF-CARE
== END 2024-07-03 15:38 | disposition home or self-care (01) ==
LOC: EC 10:20 → 4SSUR 15:43 → INTOOBSV 15:43 → 4SSUR 17:39
PROVIDERS: ADMIT Internal Medicine; ATTEND Internal Medicine
DX: K56.7 Ileus, unspecified (principal); T50.995A Adverse effect of other drugs, medicaments and biological substances, initial encounter; E86.0 Dehydration; D72.829 Elevated white blood cell count, unspecified; M54.6 Pain in thoracic spine; E03.9 Hypothyroidism, unspecified; E11.9 Type 2 diabetes mellitus without complications; E66.09 Other obesity due to excess calories; Z68.34 Body mass index [BMI] 34.0-34.9, adult; E78.5 Hyperlipidemia, unspecified; F32.A Depression, unspecified; F41.9 Anxiety disorder, unspecified; I10 Essential (primary) hypertension; K21.9 Gastro-esophageal reflux disease without esophagitis; K76.0 Fatty (change of) liver, not elsewhere classified; Z79.84 Long term (current) use of oral hypoglycemic drugs; Z88.5 Allergy status to narcotic agent; Z79.85 Long-term (current) use of injectable non-insulin antidiabetic drugs; Z79.890 Hormone replacement therapy; Z79.899 Other long term (current) drug therapy; Z87.891 Personal history of nicotine dependence
CPT/HCPCS: 96376 ×2; 96375 ×2; 96374; 99285; 36415; 93005; 80053; 80048; 84484; 85025 ×2; 85610; 85730; 81001; 87636; 71046; 76705; 74177; G0378 ×3; J1200; J2765; J2405; Q9967; J2470 ×3; 96361